=== PATIENT | male | born 1950 | race Caucasian/White ===

== ENCOUNTER 2017-01-23 07:26 | Emergency (ER) | payer MEDICARE ==
--- NOTE | 2017-01-23 07:32 | ER Document Report ---
ED General - General Stated Complaint: FALL/DIFFICULTY BREATHING Time Seen by Provider: 01/23/17 07:32 Mode of Arrival: Medic Information source: Patient, Emergency Med Personnel Cannot obtain history due to: Altered mental status Notes: 66 yr old male presents emergency traffic with concerns for respiratory failure , syncope and trauma. Pt states he walks around at 5am every morning, was found down face flat by bystander, pt sating 66% initially with agonal respirations. Pt very altered initially, noted ot have multiple facial, body contusions, skin tears, no specific area f tenderness. pt core temp 92.5 - HPI Onset: Just prior to arrival Onset/Duration: Sudden Quality of pain: Achy Severity: Mild Pain Level: 1 Associated symptoms: Shortness of breath, Weakness, Other Exacerbated by: Denies Relieved by: Denies Similar symptoms previously: No Recently seen / treated by doctor: No - Related Data Allergies/Adverse Reactions: No Known Allergies Allergy (Unverified 06/25/13 11:32) Past Medical History - Social History Smoking Status: Current Every Day Smoker Cigarette use (# per day): Yes Chew tobacco use (# tins/day): No Smoking Education Provided: No Family History: Malignancy Pulmonary Medical History: Reports: Hx COPD Neurological Medical History: Reports: Hx Seizures - Immunizations Hx Diphtheria, Pertussis, Tetanus Vaccination: No Review of Systems - Review of Systems Notes: PHYSICAL EXAMINATION: GENERAL: ill appearing male C collar in place. GCS 12 HEAD: multiple contusions EYES: Pupils equal round and reactive to light, extraocular movements intact, sclera anicteric, subconjunctival hemorrhage on the left edema of the orbital regions bilaterally ENT: Nares patent, oropharynx clear without exudates. Moist mucous membranes. No hemanotympanum . No blood in nares. No dental fracture NECK: C collar in place, trachea midline LUNGS: coarse breath sounds all throughout, bipap placed HEART: Regular rate and rhythm without murmurs. Pulses intact all throughout. ABDOMEN: distended abdomen, umbilical hernia Musculoskeletal: moving his extremities NEUROLOGICAL: GCS 12 PSYCH: Normal mood, normal affect. SKIN: multiple skin tears including left shoulder, left forearm, left elbow, extensive bruising U/S fast exam notes no obvious free fluid but this is a nondiagnostic evaluation -: Yes ROS unobtainable due to patient's medical condition Physical Exam - Vital signs Vitals: Pulse Ox 96 01/23/17 07:39 Course - Re-evaluation Re-evalutation: 01/23/17 07:42 C-collar was immediately placed on patient, respiratory was called for BiPAP, appears to be a medical reason for his fall given his excessive edema or respiratory distress 01/23/17 08:14 Core temp has improved with bare hugger 01/23/17 08:27 i bleeive patient was ill then had syncope and the trauma, ct imaging and labs pending 01/23/17 09:32 Troponin is noted to be elevated however I am still awaiting imaging before I can use any anticoagulation 01/23/17 10:19 [facility] paged for transfer 01/23/17 10:[address] Arcos ED defers on trauma transfer [facility] admit 01/23/17 10:44 Dr Aranda accepts to [facility] [place] - Vital Signs Vital signs: Temp Pulse Resp BP Pulse Ox 15 154/86 H 100 01/23/17 10:00 01/23/17 09:50 01/23/17 10:00 - Laboratory Result Diagrams: 01/23/17 08:00 01/23/17 08:00 Laboratory results interpreted by me: 01/23/17 01/23/17 01/23/17 08:00 08:00 08:00 WBC 16.8 H RDW 15.7 H Seg Neutrophils % 79.5 H Lymphocytes % 10.7 L Absolute Neutrophils 13.4 H VBG pH VBG pCO2 BUN 37 H Creatinine 1.64 H Est GFR ( Amer) 51 L Est GFR (Non-Af Amer) 42 L Glucose 113 H Direct Bilirubin 0.6 H Creatine Kinase 341 H CK-MB (CK-2) 8.91 H Urine Blood 01/23/17 01/23/17 08:00 08:00 WBC RDW Seg Neutrophils % Lymphocytes % Absolute Neutrophils VBG pH 7.24 L VBG pCO2 71.3 H* BUN Creatinine Est GFR ( Amer) Est GFR (Non-Af Amer) Glucose Direct Bilirubin Creatine Kinase CK-MB (CK-2) Urine Blood SMALL H Procedures - Immobilization Left 5th digit Time completed: 10:48 Pre-Proc Neuro Vasc Exam: Normal Immobilizer type: Ulnar Performed by: PCT Post-Proc Neuro Vasc Exam: Normal Alignment checked and good: Yes Critical Care Note - Critical Care Note Total time excluding time spent on procedures (mins): 85 Comments: 85 minutes of critical care time spent in direct contact evaluating and reevaluating the patient, treating symptoms, reviewing labs and studies and speaking with family and consultants excluding any procedures Discharge - Discharge Clinical Impression: Elevated troponin, NSTEMI (non-ST elevated myocardial infarction), Skin tear, Syncope and collapse Respiratory failure Qualifiers: Chronicity: acute Respiratory failure complication: hypercapnia Qualified Code( s): J96.02 - Acute respiratory failure with hypercapnia Closed fracture of 5th metacarpal Qualifiers: Encounter type: initial encounter Metacarpal location: base Fracture alignment : nondisplaced Laterality: left Qualified Code(s): S62.347A - Nondisplaced fracture of base of fifth metacarpal bone. left hand, initial encounter for closed fracture Condition: Fair Disposition: [facility] Referrals: CARMEN ESCOBAR MD [Primary Care Provider] - Follow up as needed
[2017-01-23] MEDS ORDERED: IPRATROPIUM/ALBUTEROL 0.5-2.5 MG/3 ML AMPUL NEB ONE ×2 (07:42→09:56)
[2017-01-23 08:21] LABS: ABSOLUTE BASOPHILS # (AUTO) 0.1 10^3/uL (0.0-0.2); ABSOLUTE EOSINOPHILS # (AUTO) 0.6 10^3/uL (0.0-0.6); ABSOLUTE LYMPHOCYTES (AUTO) 1.8 10^3/uL (0.5-4.7); ABSOLUTE NEUT (AUTO) 13.4 10^3/uL (1.7-8.2); BASOPHILS % (AUTO) 0.5 % (0-2); EOSINOPHILS % (AUTO) 3.4 % (0-6); LYMPHOCYTES % (AUTO) 10.7 % (13-45); MEAN CORPUSCULAR HEMOGLOBIN 27.3 pg (27.0-33.4); MEAN CORPUSCULAR HGB CONC 32.6 g/dL (32.0-36.0); MEAN CORPUSCULAR VOLUME 84 fl (80-97); MONOCYTES % (AUTO) 5.9 % (3-13); RED BLOOD COUNT 5.13 10^6/uL (4.35-5.55); RED CELL DISTRIBUTION WIDTH 15.7 % (11.5-14.0); SEGMENTED NEUTROPHILS % (AUTO) 79.5 % (42-78); WHITE BLOOD COUNT 16.8 10^3/uL (4.0-10.5)
[2017-01-23] MEDS ORDERED: CEFAZOLIN 1 GM/D5W RTU 1 GM/50 ML RTUPB IV ONE (08:23)
[2017-01-23] MEDS ORDERED: DIPH/PERTUSS(ACELL)/TETANUS VAC/PF 0.5 ML SYR (>=10YO) IM ONE (08:23)
[2017-01-23 08:27] LABS: VENOUS BLOOD BASE EXCESS 0.1 mmol/L; VENOUS BLOOD HCO3 29.6 mmol/L (20-32); VENOUS BLOOD PH 7.24 (7.30-7.42)
[2017-01-23 08:28] LABS: APPEARANCE,URINE CLEAR; BILIRUBIN,URINE NEGATIVE (NEGATIVE); GLUCOSE, URINE NEGATIVE (NEGATIVE); KETONES,URINE NEGATIVE (NEGATIVE); LEUKOCYTE ESTERASE,URINE NEGATIVE (NEGATIVE); NITRITE,URINE NEGATIVE (NEGATIVE); PROTEIN,URINE NEGATIVE (NEGATIVE); PROTHROMBIN TIME 14.7 SEC (11.4-15.4); UROBILINOGEN,URINE NEGATIVE mg/dL (<2.0)
[2017-01-23 08:30] LABS: VENOUS BLOOD PCO2 71.3 mmHg (35-63)
[2017-01-23 08:42] LABS: ALANINE AMINOTRANSFERASE 28 U/L (21-72); ALBUMIN 4.1 g/dL (3.5-5.0); ALKALINE PHOSPHATASE 80 U/L (38-126); ANION GAP 9 (5-19); ASPARTATE AMINO TRANSFERASE 45 U/L (17-59); BILIRUBIN,DIRECT 0.6 mg/dL (0.0-0.4); BLOOD UREA NITROGEN 37 mg/dL (7-20); CALCIUM 9.6 mg/dL (8.4-10.2); CARBON DIOXIDE 28 mmol/L (22-30); CHLORIDE 107 mmol/L (98-107); CREATINE KINASE 341 U/L (55-170); CREATININE RESULT 1.64 mg/dL (0.52-1.25); GLUCOSE 113 mg/dL (75-110); POTASSIUM 4.7 mmol/L (3.6-5.0); SODIUM 144.3 mmol/L (137-145); TOTAL PROTEIN 7.3 g/dL (6.3-8.2)
[2017-01-23 08:53] LABS: CREATINE KINASE MB 8.91 ng/mL (<4.55)
[2017-01-23 08:56] LABS: TROPONIN I 0.543 ng/mL
[2017-01-23] MEDS ORDERED: ASPIRIN 325 MG TABLET PO ONE (09:32)
--- NOTE | 2017-01-23 09:57 | RADIOLOGY REPORT (SQ) ---
EXAM DESCRIPTION: ELBOW BILATERAL 2 VIEWS MIN COMPLETED DATE/TIME: 01/23/2017 9:37 am REASON FOR STUDY: syncope fall, multiple injuries COMPARISON: None. NUMBER OF VIEWS: 8 views TECHNIQUE: AP, lateral, and both oblique radiographic images acquired of the right and left elbow. LIMITATIONS: Positioning. FINDINGS: MINERALIZATION: Normal. BONES: No acute fracture or dislocation. No worrisome bone lesions. JOINT: No effusion. SOFT TISSUES: IV overlying right antecubital fossa. OTHER: No other significant finding. IMPRESSION: No fracture identified. TECHNICAL DOCUMENTATION: JOB ID: [id number] [employer]- All Rights Reserved
--- NOTE | 2017-01-23 10:06 | RADIOLOGY REPORT (SQ) ---
EXAM DESCRIPTION: HAND BILATERAL 3 VIEWS COMPLETED DATE/TIME: 01/23/2017 9:37 am REASON FOR STUDY: syncope fall, multiple injuries COMPARISON: None. EXAM PARAMETERS: NUMBER OF VIEWS: Three views right hand. Three views left hand. TECHNIQUE: AP, lateral and oblique radiographic images acquired of bilateral hands. LIMITATIONS: None. FINDINGS: Fracture of the base of the left 5th metacarpal mild ulnar displacement. No other fractur e identified. IMPRESSION: Fracture of the base of the left 5th metacarpal. TECHNICAL DOCUMENTATION: JOB ID: [id number] [employer]- All Rights Reserved
--- NOTE | 2017-01-23 10:07 | RADIOLOGY REPORT (SQ) ---
EXAM DESCRIPTION: KNEE BILATERAL 1-2 VIEWS COMPLETED DATE/TIME: 01/23/2017 9:37 am REASON FOR STUDY: syncope fall, multiple injuries COMPARISON: None. NUMBER OF VIEWS: Four views. TECHNIQUE: AP and lateral radiographic images acquired of the right and left knee. LIMITATIONS: None. FINDINGS: MINERALIZATION: Normal. BONES: No acute fracture or dislocation. No worrisome bone lesions. JOINT: No effusion. SOFT TISSUES: Vascular calcifications. OTHER: No other significant finding. IMPRESSION: No fracture. TECHNICAL DOCUMENTATION: JOB ID: [id number] [employer]- All Rights Reserved
--- NOTE | 2017-01-23 10:08 | RADIOLOGY REPORT (SQ) ---
EXAM DESCRIPTION: CT HEAD WITHOUT COMPLETED DATE/TIME: 01/23/2017 9:49 am REASON FOR STUDY: syncope fall, multiple injuries COMPARISON: 06/25/2013 TECHNIQUE: Axial images acquired through the brain without intravenous contrast. Images reviewed wi th bone, brain and subdural windows. Images stored on PACS. All CT scanners at this facility use dose modulation, iterative reconstruction, and/or weight based d osing when appropriate to reduce radiation dose to as low as reasonably achievable (ALARA). [facility]: Dose Right [facility]: CareDose [facility]: Dose Right [facility]: Teradose 4D [facility]: [employer] RADIATION DOSE: Up-to-date CT equipment and radiation dose reduction techniques were employed. CTDIv ol: 64.6 mGy. DLP: 1163 mGy-cm. mGy. LIMITATIONS: Motion. FINDINGS: VENTRICLES: Prominent. CEREBRUM: No masses. No hemorrhage. No midline shift. Areas of low density in the white matter mos t likely due to chronic micro-vascular ischemic change. No evidence for acute infarction. CEREBELLUM: No masses. No hemorrhage. No alteration of density. No evidence for acute infarction. EXTRAAXIAL SPACES: Mild age-related involutional change. No fluid collections. No masses. ORBITS AND GLOBE: No intra- or extraconal masses. Normal contour of globe without masses. CALVARIUM: No fracture. PARANASAL SINUSES: No fluid or mucosal thickening. SOFT TISSUES: No mass or hematoma. OTHER: No other significant finding. IMPRESSION: No acute findings. EVIDENCE OF ACUTE STROKE: NO. TECHNICAL DOCUMENTATION: JOB ID: [id number] Quality ID # [id number]: Final reports with documentation of one or more dose reduction techniques (e.g., Au tomated exposure control, adjustment of the mA and/or kV according to patient size, use of iterative reconstruction technique) 2010 [employer]- All Rights Reserved
--- NOTE | 2017-01-23 10:13 | RADIOLOGY REPORT (SQ) ---
EXAM DESCRIPTION: CT CHEST WITH COMPLETED DATE/TIME: 01/23/2017 9:50 am REASON FOR STUDY: syncope fall, multiple injuries COMPARISON: 07/05/2013 TECHNIQUE: CT scan of the chest performed using helical scanning technique with dynamic intravenous contrast injection. Images reviewed with lung, soft tissue and bone windows. Reconstructed coronal and sagittal MPR images reviewed. All images stored on PACS. All CT scanners at this facility use dose modulation, iterative reconstruction, and/or weight based d osing when appropriate to reduce radiation dose to as low as reasonably achievable (ALARA). [facility]: Dose Right [facility]: CareDose [facility]: Dose Right [facility]: Teradose 4D [facility]: [employer] CONTRAST TYPE AND DOSE: See separate report of the same date. RENAL FUNCTION: See separate report of the same date. RADIATION DOSE: . LIMITATIONS: Motion. Positioning. FINDINGS: LUNGS AND PLEURA: Subsegmental airspace disease in the anterior lungs. This is probably d ependent atelectasis with patient found prone. No pneumothorax. No effusions. HILAR AND MEDIASTINAL STRUCTURES: No identified masses or abnormal nodes. HEART AND VASCULAR STRUCTURES: No aneurysm or dissection. No central pulmonary emboli. No pericardi al effusion. HARDWARE: None in the chest. UPPER ABDOMEN: See separate report of the CT of the abdomen. THYROID AND OTHER SOFT TISSUES: No masses. No adenopathy. BONES: No obvious fractures. Sensitivity is lower due to the amount of motion. OTHER: No other significant finding. IMPRESSION: Technical limitations. Anterior lung atelectasis. No pneumothorax. TECHNICAL DOCUMENTATION: JOB ID: [id number] Quality ID # [id number]: Final reports with documentation of one or more dose reduction techniques (e.g., Au tomated exposure control, adjustment of the mA and/or kV according to patient size, use of iterative reconstruction technique) 2010 [employer]- All Rights Reserved
[2017-01-23] MEDS ORDERED: DIAZEPAM INJ 10 MG/2 ML DISP.SYRIN IV ONE (10:16)
--- NOTE | 2017-01-23 10:16 | RADIOLOGY REPORT (SQ) ---
EXAM DESCRIPTION: CT ABD/PELVIS WITH IV ONLY COMPLETED DATE/TIME: 01/23/2017 9:50 am REASON FOR STUDY: syncope fall, multiple injuries COMPARISON: None. TECHNIQUE: CT scan of the abdomen and pelvis performed using helical scanning technique with dynamic intravenous contrast injection. No oral contrast. Images reviewed with lung, soft tissue, and bone windows. Reconstructed coronal and sagittal MPR images reviewed. Delayed images for evaluation of the urinary system also acquired. All images stored on PACS. All CT scanners at this facility use dose modulation, iterative reconstruction, and/or weight based d osing when appropriate to reduce radiation dose to as low as reasonably achievable (ALARA). [facility]: Dose Right [facility]: CareDose [facility]: Dose Right [facility]: Teradose 4D [facility]: [employer] CONTRAST TYPE AND DOSE: contrast/concentration: Isovue 370.00 mg/ml; Total Contrast Delivered: 99.0 ml; Total Saline Delivered: 69.0 ml RENAL FUNCTION: Not recorded by technologist. RADIATION DOSE: Up-to-date CT equipment and radiation dose reduction techniques were employed. CTDIv ol: 19.4 - 21.0 mGy. DLP: 2643 mGy-cm.. LIMITATIONS: Patient motion. FINDINGS: LOWER CHEST: See separate report of the CT of the chest. LIVER: Normal size. No masses. No dilated ducts. SPLEEN: Normal size. No focal lesions. PANCREAS: No masses. No significant calcifications. No adjacent inflammation or peripancreatic fluid collections. Pancreatic duct not dilated. GALLBLADDER: No identified stones by CT criteria. No inflammatory changes to suggest cholecystitis. ADRENAL GLANDS: No significant masses or asymmetry. RIGHT KIDNEY AND URETER: No solid masses. No significant calcifications. No hydronephrosis or hyd roureter. LEFT KIDNEY AND URETER: No solid masses. No significant calcifications. No hydronephrosis or hydr oureter. AORTA AND VESSELS: No aneurysm. RETROPERITONEUM: No retroperitoneal adenopathy, hemorrhage or masses. BOWEL AND PERITONEAL CAVITY: No masses or inflammatory changes. No free fluid or peritoneal masses. APPENDIX: Not visualized. PELVIS: Espitia catheter in urinary bladder. ABDOMINAL WALL: Small ventral hernia containing fat. BONES: No obvious fracture. Sensitivity is lower the amount of motion. OTHER: No other significant finding. IMPRESSION: No evidence of solid organ injury. TECHNICAL DOCUMENTATION: JOB ID: [id number] Quality ID # [id number]: Final reports with documentation of one or more dose reduction techniques (e.g., Au tomated exposure control, adjustment of the mA and/or kV according to patient size, use of iterative reconstruction technique) 2010 [employer]- All Rights Reserved
--- NOTE | 2017-01-23 10:21 | RADIOLOGY REPORT (SQ) ---
EXAM DESCRIPTION: CT CERVICAL SPINE WITHOUT COMPLETED DATE/TIME: 01/23/2017 9:50 am REASON FOR STUDY: syncope fall, multiple injuries COMPARISON: None. TECHNIQUE: Axial images acquired through the cervical spine without intravenous contrast. Images re viewed with lung, soft tissue and bone windows. Reconstructed coronal and sagittal MPR images review ed. Images stored on PACS. All CT scanners at this facility use dose modulation, iterative reconstruction, and/or weight based d osing when appropriate to reduce radiation dose to as low as reasonably achievable (ALARA). [facility]: Dose Right [facility]: CareDose [facility]: Dose Right [facility]: Teradose 4D [facility]: [employer] RADIATION DOSE: Up-to-date CT equipment and radiation dose reduction techniques were employed. CTDIv ol: 26.0 mGy. DLP: 573 mGy-cm. mGy. LIMITATIONS: Excessive motion. Positioning. FINDINGS: Patient is status post dorsal decompression at multiple levels. Reversal of lordotic curv e. Disc space narrowing and osteophyte formation multiple levels. No obvious acute fracture. IMPRESSION: No obvious fracture. If clinical suspicion of fracture persists, repeat imaging recomme nded when the patient is more stable. TECHNICAL DOCUMENTATION: JOB ID: [id number] Quality ID # [id number]: Final reports with documentation of one or more dose reduction techniques (e.g., Au tomated exposure control, adjustment of the mA and/or kV according to patient size, use of iterative reconstruction technique) 2010 [employer]- All Rights Reserved
[2017-01-23] MEDS ORDERED: HEPARIN SOD (PORCINE) 1,000 UNIT/ML 10 ML VIAL IV PRN (10:46)
[2017-01-23] MEDS ORDERED: HEPARIN SODIUM,PORCINE/D5W 25,000 UNIT/250 ML RTUINJ IV PRN (10:46)
[2017-01-23] MEDS ORDERED: HEPARIN SOD (PORCINE) 1,000 UNIT/ML 10 ML VIAL IV ONE (10:46)
[2017-01-23] MEDS ORDERED: HEPARIN SODIUM,PORCINE/D5W 25,000 UNIT/250 ML RTUINJ IV ONE (11:31)
--- NOTE | 2017-01-23 12:58 | EKG REPORT ---
SEVERITY:- OTHERWISE NORMAL ECG - SINUS RHYTHM VENTRICULAR PREMATURE COMPLEX : Confirmed by: Oneida Beckford 23-Jan-2017 12:57:34
--- NOTE | 2017-01-23 12:58 | EKG REPORT ---
SEVERITY:- ABNORMAL ECG - SINUS TACHYCARDIA PROLONGED QT INTERVAL : Confirmed by: Oneida Beckford 23-Jan-2017 12:58:02
[2017-01-23 14:59] LABS: CREATINE KINASE MB 14.1 ng/mL (<4.55)
[2017-01-23 15:02] LABS: TROPONIN I 2.36 ng/mL
--- NOTE | 2017-01-23 17:08 | ER Document Report ---
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 His vital signs remained stable with a blood pressure 129/63, pulse 77, pulse ox 100% on nasal cannula. He is not complaining of any pain at this time. Patient is stable for transport.
[2017-01-23 17:12] VITALS: BP 129/63
== END 2017-01-23 17:30 | disposition short-term general hospital (02) ==
LOC: ER 07:26
PROC: 2W3KX1Z Immobilization of Left Finger using Splint (ICD-10-PCS; principal; 2017-01-23)
DX: I21.4 Non-ST elevation (NSTEMI) myocardial infarction (principal); J96.02 Acute respiratory failure with hypercapnia; R53.1 Weakness; S51.012A Laceration without foreign body of left elbow, initial encounter; S51.812A Laceration without foreign body of left forearm, initial encounter; S41.012A Laceration without foreign body of left shoulder, initial encounter; S62.347A Nondisplaced fracture of base of fifth metacarpal bone, left hand, initial encounter for closed fracture; R55 Syncope and collapse; W18.30XA Fall on same level, unspecified, initial encounter; F17.210 Nicotine dependence, cigarettes, uncomplicated; J44.9 Chronic obstructive pulmonary disease, unspecified
CPT/HCPCS: 29125; 93005; 94640; 99291; 99292; 96375; 96365; 36415; 87040; 87086; 82553; 82550; 85025; 85610; 80053; 81001; 84484; 82803; 83605; 73070; 73130; 73560; 70450; 71260; 72125; 74177; 93010; 94660; J1644 ×2; A9270 ×2; J0690; J3360; J7620

== ENCOUNTER 2018-05-17 04:21 | Inpatient (IN) | payer MEDICARE, MEDICAID ==
[2018-05-17] MEDS ORDERED: ALBUTEROL SULFATE 0.083% NEB 2.5 MG/3 ML AMPUL NEB ONE (04:31)
[2018-05-17] MEDS ORDERED: IPRATROPIUM/ALBUTEROL 0.5-2.5 MG/3 ML AMPUL NEB ONE (04:31)
--- NOTE | 2018-05-17 04:35 | ER Document Report ---
ED Respiratory Problem - General Chief Complaint: Shortness Of Breath Stated Complaint: Difficulty breathing Time Seen by Provider: 05/17/18 04:27 Primary Care Provider: CARMEN ESCOBAR MD [COMMUNITY BASED STAFF] - Follow up as needed Mode of Arrival: Medic Information source: Patient, Emergency Med Personnel Notes: Patient is a 67-year-old male with history of COPD currently on home oxygen who presents with sudden onset shortness of breath. He reports that he has increased sputum production recently, denies fevers or chills, no chest pain. He also reports feeling more tired than normal. EMS found the patient with respiratory distress in the tripod position, was placed on CPAP and given IV Solu-Medrol as well as albuterol nebulizer treatments without improvement, they were given medical direction to place 1 inch of nitroglycerin paste on the patient's chest. Upon arrival the patient was switched over to BiPAP. TRAVEL OUTSIDE OF THE [place] IN LAST 30 DAYS: No - HPI Patient complains to provider of: Cough, Short of breath Onset: Yesterday Duration: Worse/persistent Initiating Event: URI Quality of pain: No pain Severity: Severe Pain Level: Denies Context: Hx asthma, Hx COPD Short of Breath: Severe Cough: Productive Sputum amount: Small Sputum color: Brown EMS treatments: Bronchodilators, CPAP, Solumedrol Associated symptoms: Ankle/leg swelling, Congestion, Cough Similar symptoms previously: No Recently seen / treated by doctor: No - Related Data Allergies/Adverse Reactions: No Known Allergies Allergy (Verified 05/17/18 06:05) Past Medical History - General Information source: Patient, Emergency Med Personnel - Social History Smoking Status: Former Smoker Chew tobacco use (# tins/day): No Frequency of alcohol use: None Drug Abuse: None Lives with: Alone, Family Family History: Reviewed & Not Pertinent, Malignancy Patient has suicidal ideation: No Patient has homicidal ideation: No - Past Medical History Cardiac Medical History: Reports: Hx Hypertension Pulmonary Medical History: Reports: Hx COPD EENT Medical History: Reports: None Neurological Medical History: Reports: Hx Seizures Endocrine Medical History: Reports: None Renal/ Medical History: Reports: None Malignancy Medical History: Reports None GI Medical History: Reports: None Musculoskeletal Medical History: Reports None Skin Medical History: Reports None Psychiatric Medical History: Reports: None Traumatic Medical History: Reports: None Infectious Medical History: Reports: None Surgical Hx: Negative Past Surgical History: Reports: None - Immunizations Immunizations up to date: Yes Hx Diphtheria, Pertussis, Tetanus Vaccination: No Review of Systems - Review of Systems Constitutional: See HPI, Fever, Malaise EENT: No symptoms reported Cardiovascular: No symptoms reported Respiratory: See HPI, Cough, Sputum, Wheezing Gastrointestinal: No symptoms reported Genitourinary: No symptoms reported Male Genitourinary: No symptoms reported Musculoskeletal: No symptoms reported Skin: No symptoms reported Hematologic/Lymphatic: No symptoms reported Neurological/Psychological: No symptoms reported -: Yes All other systems reviewed and negative Physical Exam - Vital signs Vitals: Pulse Ox 75 L 05/17/18 04:21 Interpretation: Normal - Notes Notes: Patient is weak and ill-appearing, has CPAP device already applied, speaks in shortened 2-3 word sentences - General General appearance: Appears well, Alert - HEENT Head: Normocephalic, Atraumatic Eyes: Normal Pupils: PERRL - Respiratory Respiratory status: No respiratory distress, Respiratory distress, Depressed respirations, Labored, Tachypnea Chest status: Nontender Breath sounds: Decreased air movement, Rhonchi, Wheezing Chest palpation: Normal - Cardiovascular Rhythm: Tachycardia Heart sounds: Normal auscultation Murmur: No Normal capillary refill: Yes - Abdominal Inspection: Normal Distension: No distension Bowel sounds: Normal Tenderness: Nontender Organomegaly: No organomegaly - Rectal Notes: Deferred - Genitourinary Notes: Deferred - Back Back: Normal, Nontender - Extremities General upper extremity: Normal inspection, Nontender, Normal color, Normal ROM, Normal temperature General lower extremity: Normal inspection, Nontender, Normal color, Normal ROM, Normal temperature, Normal weight bearing. No: Florencio's sign - Neurological Neuro grossly intact: Yes Cognition: Normal Orientation: AAOx4 Austin Coma Scale Eye Opening: Spontaneous Wolf Coma Scale Verbal: Oriented Wolf Coma Scale Motor: Obeys Commands Austin Coma Scale Total: 15 Speech: Normal Motor strength normal: LUE, RUE, LLE, RLE Sensory: Normal - Psychological Associated symptoms: Normal affect, Normal mood - Skin Skin Temperature: Warm Skin Moisture: Dry Skin Color: Normal Course - Re-evaluation Re-evalutation: 05/17/18 06:27 Patient appears consistent with COPD exacerbation given chest x-ray, has already shown improvement and has been able to come off BiPAP and now currently on nasal cannula. He was given broad-spectrum antibiotics and will be admitted to the hospitalist. - Vital Signs Vital signs: Temp Pulse Resp BP Pulse Ox 97.6 F 17 122/56 L 93 05/17/18 05:06 05/17/18 06:18 05/17/18 06:18 05/17/18 06:18 - Laboratory Result Diagrams: 05/17/18 04:30 05/17/18 04:30 Laboratory results interpreted by me: 05/17/18 05/17/18 05/17/18 04:30 04:30 05:23 WBC 13.7 H Hgb 13.3 L MCV 78 L MCH 24.8 L MCHC 31.8 L RDW 16.0 H Absolute Neutrophils 10.4 H Carbonic Acid ABG pCO2 ABG pO2 ABG HCO3 ABG Total CO2 ABG O2 Saturation Potassium 5.4 H Total Bilirubin 2.0 H Direct Bilirubin 1.1 H ALT < 6 L Urine Protein >=500 H Urine Urobilinogen 4.0 H 05/17/18 05:35 WBC Hgb MCV MCH MCHC RDW Absolute Neutrophils Carbonic Acid 1.36 H ABG pCO2 45.1 H ABG pO2 58.2 L ABG HCO3 27.0 H ABG Total CO2 28.4 H ABG O2 Saturation 90.0 L Potassium Total Bilirubin Direct Bilirubin ALT Urine Protein Urine Urobilinogen - Diagnostic Test Radiology reviewed: Image reviewed, Reports reviewed - EKG Interpretation by Me EKG shows normal: Sinus rhythm Rate: Tachycardia Rhythm: NSR [place]/QRS: No: Right axis deviation, Left axis deviation, RBBB, LBBB, IVCD, LAHB/LAFB, LPHB/LPFB, Bifasicular block Voltage: No: Increased voltage, Consistant with LVH, Decreased voltage, Throughout, Limb leads Heart block present: No: 1st Degree, Mobitz 1, Mobitz 2, CHB (3rd degree block) When compared to previous EKG there are: No significant change - Consults Dr. Swift Time consulted: 06:25 - will admit Consulted provider: will come to ER Discharge - Discharge Clinical Impression: Shortness of breath, COPD exacerbation Condition: Stable Disposition: ADMITTED INPATIENT Admitting Provider: Hospitalist Unit Admitted: Telemetry Referrals: CARMEN ESCOBAR MD [COMMUNITY BASED STAFF] - Follow up as needed
[2018-05-17] MEDS ORDERED: AZITHROMYCIN INJ 500 MG VIAL IV ONE (04:39)
--- NOTE | 2018-05-17 04:46 | RADIOLOGY REPORT (SQ) ---
EXAM DESCRIPTION: XR CHEST 1 VIEW COMPLETED DATE/TME: 05/17/2018 00:00 CLINICAL HISTORY: 67 years, Male, RESP DISTRESS COMPARISON: 07/13/2013 chest NUMBER OF VIEWS: 1 TECHNIQUE: Portable chest LIMITATIONS: None. FINDINGS: Heart size is normal. Atheromatous change thoracic aorta. Underlying COPD. Osteopenia. No pneumothorax. Mild interstitial edema versus pneumonitis. Patchy airspace opacity right lung base. IMPRESSION: COPD with mild interstitial edema versus pneumonitis. Patchy right basilar airspace opacity copyright 2010 [employer]- All Rights Reserved
[2018-05-17 04:49] LABS: ABSOLUTE BASOPHILS # (AUTO) 0.1 10^3/uL (0.0-0.2); ABSOLUTE EOSINOPHILS # (AUTO) 0.5 10^3/uL (0.0-0.6); ABSOLUTE LYMPHOCYTES (AUTO) 2.3 10^3/uL (0.5-4.7); ABSOLUTE MONOCYTES (AUTO) 0.4 10^3/uL (0.1-1.4); ABSOLUTE NEUT (AUTO) 10.4 10^3/uL (1.7-8.2); BASOPHILS % (AUTO) 0.6 % (0-2); EOSINOPHILS % (AUTO) 3.5 % (0-6); HEMATOCRIT 41.9 % (37.9-51.0); HEMOGLOBIN 13.3 g/dL (13.5-17.0); LYMPHOCYTES % (AUTO) 16.7 % (13-45); MEAN CORPUSCULAR HEMOGLOBIN 24.8 pg (27.0-33.4); MEAN CORPUSCULAR HGB CONC 31.8 g/dL (32.0-36.0); MEAN CORPUSCULAR VOLUME 78 fl (80-97); MONOCYTES % (AUTO) 3.2 % (3-13); PLATELET COUNT 360 10^3/uL (150-450); RED BLOOD COUNT 5.38 10^6/uL (4.35-5.55); TOTAL CELLS COUNTED % (AUTO) 100 %; WHITE BLOOD COUNT 13.7 10^3/uL (4.0-10.5)
[2018-05-17 05:05] LABS: ALANINE AMINOTRANSFERASE < 6 U/L (21-72); ALBUMIN 4.6 g/dL (3.5-5.0); ALKALINE PHOSPHATASE 80 U/L (38-126); ANION GAP 11 (5-19); ASPARTATE AMINO TRANSFERASE 55 U/L (17-59); BILIRUBIN,DIRECT 1.1 mg/dL (0.0-0.4); BLOOD UREA NITROGEN 16 mg/dL (7-20); CALCIUM 8.9 mg/dL (8.4-10.2); CARBON DIOXIDE 28 mmol/L (22-30); CHLORIDE 106 mmol/L (98-107); CREATINE KINASE 79 U/L (55-170); GLUCOSE 102 mg/dL (75-110); POTASSIUM 5.4 mmol/L (3.6-5.0); SODIUM 144.5 mmol/L (137-145); TOTAL PROTEIN 7.7 g/dL (6.3-8.2)
[2018-05-17] MEDS: CEFTRIAXONE 1 GM/D5W RTU 1 GM/50 ML RTUPB IV SCH ×2 (05:10→09:24)
[2018-05-17 05:17] LABS: TROPONIN I 0.027 ng/mL
[2018-05-17 05:41] LABS: APPEARANCE,URINE CLEAR; BILIRUBIN,URINE NEGATIVE (NEGATIVE); COLOR,URINE YELLOW; GLUCOSE, URINE NEGATIVE (NEGATIVE); KETONES,URINE NEGATIVE (NEGATIVE); LEUKOCYTE ESTERASE,URINE NEGATIVE (NEGATIVE); NITRITE,URINE NEGATIVE (NEGATIVE); PROTEIN,URINE >=500 mg/dL (NEGATIVE); URINE SPECIFIC GRAVITY 1.018
[2018-05-17 06:17] LABS: ARTERIAL BLOOD BASE EXCESS 1.7 mmol/L; ARTERIAL BLOOD H2CO3 1.36 mmol/L (1.05-1.35); ARTERIAL BLOOD PCO2 45.1 mmHg (35-45); ARTERIAL BLOOD PO2 58.2 mmHg (80-100); ARTERIAL BLOOD TOTAL CO2 28.4 mmol/L (23-27)
[2018-05-17 06:18] LABS: ARTERIAL BLOOD FIO2 NC4LPM
--- NOTE | 2018-05-17 07:24 | EKG REPORT ---
SEVERITY:- ABNORMAL ECG - SINUS TACHYCARDIA MULTIPLE VENTRICULAR PREMATURE COMPLEXES BORDERLINE RIGHT AXIS DEVIATION : Confirmed by: Lanie Cartagena MD 17-May-2018 07:24:20
[2018-05-17] MEDS ORDERED: ACETAMINOPHEN 325 MG TABLET PO PRN (08:22)
[2018-05-17] MEDS ORDERED: ONDANSETRON 4 MG TAB.RAPDIS PO PRN (08:22)
[2018-05-17] MEDS ORDERED: LEVALBUTEROL HCL NEB 1.25 MG/3 ML AMPUL NEB PRN (08:22)
[2018-05-17] MEDS ORDERED: FUROSEMIDE 20 MG TABLET PO ONE (08:33)
[2018-05-17] MEDS ORDERED: OXYCODONE HCL IR 5 MG TABLET PO PRN (08:34)
[2018-05-17] MEDS ORDERED: PROMETHAZINE HCL 25 MG TABLET PO PRN (08:40)
[2018-05-17] MEDS: GUAIFENESIN 600 MG TABLET.SA PO SCH ×2 (09:22→21:34)
[2018-05-17] MEDS: DOCUSATE SODIUM 100 MG CAPSULE PO SCH ×2 (09:22→17:35)
[2018-05-17] MEDS: OXYCODONE HCL IR 5 MG TABLET PO SCH ×3 (09:22→21:35)
[2018-05-17] MEDS: FAMOTIDINE 20 MG TABLET PO SCH ×2 (09:23→21:34)
[2018-05-17] MEDS: LISINOPRIL 10 MG TABLET PO SCH (09:23)
[2018-05-17] MEDS: METOPROLOL TARTRATE 50 MG TABLET PO SCH ×2 (09:23→21:36)
[2018-05-17] MEDS ORDERED: FLUTICASONE/SALMETEROL DISKUS 500-50 MCG/DOSE IH SCH (10:00)
[2018-05-17] MEDS ORDERED: ENOXAPARIN SODIUM INJ 40 MG/0.4 ML DISP.SYRIN SUBCUT SCH (10:00)
[2018-05-17] MEDS ORDERED: POLYETHYLENE GLYCOL 3350 POWDER 17 GM/1 PACKET PO PRN (11:06)
--- NOTE | 2018-05-17 11:22 | PDOC H&P ---
History of Present Illness Admission Date/PCP: 05/17/18 06:58 Dr. Bundy Patient complains of: Shortness of breath History of Present Illness: RIC HUNT is a 67 year old male with a long history of chronic obstructive pulmonary disease. He did stop smoking and drinking in 2012. He is on oxygen at home typically 2.5-3 L. Over the last week he has been noticing increased shortness of breath with exertion. Normally he can walk to the mailbox and back with his oxygen (approximately 200-250 feet) and not be short of breath. This has declined and now he can hardly walk short distances without getting increased shortness of breath accompanied by wheezing. He typically has a cough especially in the mornings. Lately he has been producing occasional yellow sputum but he reports that it is not an overwhelming amount. He denies any fever or chills. He did call his son to notify him that his shortness of breath had gotten worrisome and he was brought to the emergency department. He does have a slightly elevated white blood cell count as well as increased PCO2 and decreased oxygen saturation requiring more oxygen than his baseline. He was referred to the hospitalist for admission. Past Medical History Cardiac Medical History: Reports: Congestive Heart Failure, Coronary Artery Disease, Myocardial Infarction, Hypertension Pulmonary Medical History: Reports: Chronic Obstructive Pulmonary Disease (COPD), Respiratory Failure EENT Medical History: Reports: None, Cataracts Neurological Medical History: Reports: Seizures Endocrine Medical History: Reports: None Renal/ Medical History: Reports: None Malignancy Medical History: Reports: None GI Medical History: Reports: Other - Umbilical hernia Musculoskeltal Medical History: Reports: None Skin Medical History: Reports: Other - Very dry thin skin Psychiatric Medical History: Reports: None, Alcohol Dependency, Tobacco Dependency, Other - He has not had any alcohol or tobacco since 2012 Traumatic Medical History: Reports: None Hematology: Reports: Other - Easy bruising Infectious Medical History: Reports: None Past Surgical History Past Surgical History: Reports: None, Cardiac Catheterization, Orthopedic Surgery - Cervical spine Social History Information Source: Patient, Relative, POA - Power of Campaign Advisor - His son Dylan Hunt Lives with: Alone, Family Smoking Status: Former Smoker Frequency of Alcohol Use: None Last Alcohol Use: 04/25/12 Hx Recreational Drug Use: No Drugs: None Hx Prescription Drug Abuse: No - Chronic pain medication Family History Family History: Arthritis, Malignancy, Other - Lupus Parental Family History Reviewed: Yes Children Family History Reviewed: Yes Sibling(s) Family History Reviewed.: Yes Medication/Allergy Home Medications: Gabapentin [Neurontin 300 mg Capsule] 600 mg PO Q8 06/25/13 Fluticasone/Salmeterol [Advair 250-50 Diskus 14 Dose/Diskus] 1 inh IH Q12 #0 inhaler 07/19/13 Lisinopril [Prinivil 10 mg Tablet] 20 mg PO DAILY #0 tablet 07/19/13 Metoprolol Tartrate [Lopressor 50 mg Tablet] 50 mg PO Q12 #0 tablet 07/19/13 Alprazolam [Xanax 0.25 mg Tablet] 0.25 mg PO QHS 05/17/18 Aspirin [Ecotrin 81 mg EC Tablet] 81 mg PO DAILY 05/17/18 Flu Vacc [id number](65Yr Up)/Pf [Fluzone High-Dose Syr] 0.5 ml IM .RECEIVED 02/20/18 MDD 02/20/18 05/17/18 Oxycodone HCl 15 mg PO DAILY 05/17/18 Umeclidinium Bondurant [Incruse Ellipta] 62.5 mcg IH DAILY 05/17/18 Allergies/Adverse Reactions: No Known Allergies Allergy (Verified 05/17/18 06:05) Review of Systems Constitutional: PRESENT: fatigue. ABSENT: chills, fever(s), headache(s), night sweats Eyes: ABSENT: visual disturbances Ears: ABSENT: hearing changes Nose, Mouth, and Throat: ABSENT: mouth pain, sore throat Cardiovascular: PRESENT: dyspnea on exertion, edema. ABSENT: chest pain, palpitations Respiratory: PRESENT: cough, dyspnea, sputum - White/yellow. ABSENT: hemoptysis Gastrointestinal: PRESENT: constipation. ABSENT: abdominal pain, bloating Genitourinary: ABSENT: difficulty urinating, hematuria Musculoskeletal: PRESENT: other - Neck pain Integumentary: PRESENT: other - Extremely thin skin Neurological: ABSENT: abnormal speech, confusion, focal weakness, syncope, tingling, tremor(s), vertigo Psychiatric: ABSENT: anxiety, depression, hallucinations Endocrine: ABSENT: cold intolerance, heat intolerance Hematologic/Lymphatic: PRESENT: easy bruising Physical Exam Vital Signs: Temp Pulse Resp BP Pulse Ox 98.1 F 92 18 153/71 H 92 05/17/18 09:38 05/17/18 08:54 05/17/18 10:30 05/17/18 10:01 05/17/18 10:30 Intake & Output 05/16/18 05/17/18 05/18/18 06:59 06:59 06:59 Intake Total 50 50 Balance 50 50 Weight 94 kg General appearance: PRESENT: cooperative, mild distress, well-developed Head exam: PRESENT: atraumatic, normocephalic Eye exam: PRESENT: conjunctiva pale, EOMI. ABSENT: scleral icterus Ear exam: PRESENT: normal external ear exam Mouth exam: PRESENT: dry mucosa, tongue midline Neck exam: PRESENT: other - Surgical scar posterior neck. ABSENT: carotid bruit, full ROM, lymphadenopathy Respiratory exam: PRESENT: prolonged expiratory phas, rales - Faint rales at both bases, symmetrical. ABSENT: accessory muscle use, rhonchi, wheezes Cardiovascular exam: PRESENT: RRR, +S1, +S2, systolic murmur - 2/6 Pulses: PRESENT: normal radial pulses, normal femoral pulses GI/Abdominal exam: PRESENT: distended, hernia - Umbilical-soft nontender, normal bowel sounds, soft. ABSENT: tenderness Rectal exam: PRESENT: deferred Gentrourinary exam: ABSENT: indwelling catheter Extremities exam: PRESENT: pedal edema. ABSENT: calf tenderness, tenderness Musculoskeletal exam: PRESENT: normal inspection Neurological exam: PRESENT: alert, awake, oriented to person, oriented to place, oriented to time, oriented to situation, CN II-XII grossly intact Psychiatric exam: PRESENT: appropriate affect, normal mood. ABSENT: agitated, anxious Focused psych exam: ABSENT: restlessness Skin exam: PRESENT: dry - Very dry thin skin, other - Multiple ecchymotic lesions.. ABSENT: jaundice Results Laboratory Results: 05/17/18 04:30 05/17/18 04:30 05/17/18 05/17/18 05/17/18 04:30 04:30 04:57 WBC 13.7 H RBC 5.38 Hgb 13.3 L Hct 41.9 MCV 78 L MCH 24.8 L MCHC 31.8 L RDW 16.0 H Plt Count 360 Seg Neutrophils % 76.0 Lymphocytes % 16.7 Monocytes % 3.2 Eosinophils % 3.5 Basophils % 0.6 Absolute Neutrophils 10.4 H Absolute Lymphocytes 2.3 Absolute Monocytes 0.4 Absolute Eosinophils 0.5 Absolute Basophils 0.1 Carbonic Acid HCO3/H2CO3 Ratio ABG pH ABG pCO2 ABG pO2 ABG HCO3 ABG O2 Saturation ABG Base Excess FiO2 Sodium 144.5 Potassium 5.4 H Chloride 106 Carbon Dioxide 28 Anion Gap 11 BUN 16 Creatinine 1.15 Est GFR ( Amer) > 60 Est GFR (Non-Af Amer) > 60 Glucose 102 Lactic Acid 1.8 Calcium 8.9 Total Bilirubin 2.0 H AST 55 ALT < 6 L Alkaline Phosphatase 80 Total Protein 7.7 Albumin 4.6 Urine Color Urine Appearance Urine pH Ur Specific [place] Urine Protein Urine Glucose (UA) Urine Ketones Urine Blood Urine Nitrite Ur Leukocyte Esterase Urine WBC (Auto) Urine RBC (Auto) 05/17/18 05/17/18 05:23 05:35 WBC RBC Hgb Hct MCV MCH MCHC RDW Plt Count Seg Neutrophils % Lymphocytes % Monocytes % Eosinophils % Basophils % Absolute Neutrophils Absolute Lymphocytes Absolute Monocytes Absolute Eosinophils Absolute Basophils Carbonic Acid 1.36 H HCO3/H2CO3 Ratio 19:1 ABG pH 7.40 ABG pCO2 45.1 H ABG pO2 58.2 L ABG HCO3 27.0 H ABG O2 Saturation 90.0 L ABG Base Excess 1.7 FiO2 [id number] Sodium Potassium Chloride Carbon Dioxide Anion Gap BUN Creatinine Est GFR ( Amer) Est GFR (Non-Af Amer) Glucose Lactic Acid Calcium Total Bilirubin AST ALT Alkaline Phosphatase Total Protein Albumin Urine Color YELLOW Urine Appearance CLEAR Urine pH 6.0 Ur Specific [place] 1.018 Urine Protein >=500 H Urine Glucose (UA) NEGATIVE Urine Ketones NEGATIVE Urine Blood NEGATIVE Urine Nitrite NEGATIVE Ur Leukocyte Esterase NEGATIVE Urine WBC (Auto) 1 Urine RBC (Auto) 7 05/17/18 05/17/18 04:30 04:30 Creatine Kinase 79 Troponin I 0.027 NT-Pro-B Natriuret Pep 512 Impressions: Chest X-Ray 05/17/18 00:00 IMPRESSION: COPD with mild interstitial edema versus pneumonitis. Patchy right basilar airspace opacity copyright 2011 [employer]- All Rights Reserved Assessment & Plan - Diagnosis (1) Acute on chronic respiratory failure with hypoxia and hypercapnia Is this a current diagnosis for this admission?: Yes Plan: The patient required additional oxygen from his baseline. A blood gas showed increased PCO2. He is noted to be dyspneic. Chest x-ray suggested possible airspace disease at the right base but there was no prominent consolidation. There is also possible congestive failure but this was not overwhelming. He will be on scheduled duo nebs and budesonide. I have ordered methylprednisolone. For the possibility of infection he will be on Rocephin and azithromycin. He states that an episode last year resolved when the walk-in clinic gave him steroids and antibiotics. We will continue his Advair and discontinue the scheduled nebulizers as soon as possible. I have also placed him on guaifenesin. A sputum culture was not obtained prior to initiation of antibiotic therapy. (2) COPD exacerbation Is this a current diagnosis for this admission?: Yes Plan: Scheduled and as needed nebulizers as above. Steroids as above. Return to home inhaler regimen likely tomorrow. Hopeful for discharge tomorrow. At home he is on Advair discus 500/51 puff twice a day as well as Incruse inhaler daily. He does not have a nebulizer machine at home. This may be of benefit. He will see pulmonology as an outpatient. (3) Presence of stent in coronary artery in patient with coronary artery disease Is this a current diagnosis for this admission?: Yes Plan: We will continue his lisinopril, metoprolol, aspirin and he reported to the nurse that he is on a blood thinner. We are trying to gather more information. It is twice daily and very well may be apixaban. (4) Essential hypertension Is this a current diagnosis for this admission?: Yes Plan: Continue lisinopril and metoprolol. Monitor blood pressure. (5) Chronic neck and back pain Is this a current diagnosis for this admission?: Yes Plan: He takes immediate release oxycodone 15 mg 5 times a day. I believe he is a patient at the pain management clinic as well. (6) Therapeutic opioid-induced constipation (OIC) Is this a current diagnosis for this admission?: Yes Plan: He takes Metamucil at home when he feels constipated. I will place him on stool softeners with MiraLAX available as needed. I did discuss the use of specific medication such as Linzess for opiate-induced constipation. He can follow that up with his primary care physician. - Time Time Spent: Greater than 70 Minutes Medications reviewed and adjusted accordingly: Yes Anticipated discharge: Home Within: within 48 hours
[2018-05-17] MEDS: METHYLPREDNISOLONE INJ 40 MG/1 ML SDV IV SCH ×2 (14:04→21:31)
[2018-05-17] MEDS: GABAPENTIN 300 MG CAPSULE PO SCH ×2 (14:04→21:35)
[2018-05-17] MEDS: IPRATROPIUM/ALBUTEROL 0.5-2.5 MG/3 ML AMPUL NEB SCH ×2 (14:08→19:46)
[2018-05-17 17:13] LABS: ANION GAP 11 (5-19); BLOOD UREA NITROGEN 19 mg/dL (7-20); CARBON DIOXIDE 30 mmol/L (22-30); CHLORIDE 102 mmol/L (98-107); GLUCOSE 173 mg/dL (75-110); SODIUM 142.5 mmol/L (137-145)
[2018-05-17] MEDS: PANTOT AC/MIN OIL/PET HY-PHL OINT 50 GM TOP SCH (17:35)
[2018-05-17] MEDS ORDERED: ENOXAPARIN SODIUM INJ 80 MG/0.8 ML DISP.SYRIN SUBCUT ONE ×2 (17:49→18:15)
[2018-05-17] MEDS: CLOPIDOGREL BISULFATE 75 MG TABLET PO SCH (19:42)
[2018-05-17] MEDS ORDERED: NORMAL SALINE 1000 ML 1,000 ML IV PRN (19:43)
[2018-05-17] MEDS: BUDESONIDE NEB 0.25 MG/2 ML AMPUL NEB SCH (19:47)
--- NOTE | 2018-05-17 21:48 | PDOC CONSULTATION ---
Consultation-Blank Consultation: CARDIOLOGY CONSULTATION by Dr. Lanie Reeves on 05/17/2018. Note patient seen at 7 PM on 9. 60 minutes spent on this patient, with more than 50% of time spent in direct patient care. REASON FOR CONSULTATION patient with a history of COPD on home oxygen and, and a history of coronary artery disease, and history of non-ST elevation TX in January 2017, at which time he had a stent put in a unknown coronary artery admitted with shortness of breath [centimeters cyst symptoms that led to his stent placement in 2017] and Tom no major EKG changes, the patient's troponin I is elevated consistent with a non-ST elevation TX. HISTORY PRESENT ILLNESS: Patient with a known history of COPD on home oxygen, hypertension, and coronary artery disease, with a history of non-ST elevation TX in 2017 which led to the patient having a stent in the unknown coronary artery, states that usually was able to walk to the mailbox and back with his oxygen. The last 3 days he has been having more difficulty shortness of breath. He did have he states that he had some cough which is productive of greenish sputum. Which is now resolved. There is no fever chills or rigors. He states that that he called his son and told him up with her shortness of breath and he was brought to the emergency room. His PCO2 was just above the normal limits of 45 and was 45.1. And there was a slight decrease in oxygen saturation. The patient states that his shortness of breath was very severe without any wheezing. The patient denies any palpitations. Of note the patient states when he had the non-ST elevation TX in 2017 he had no chest pain but only shortness of breath. It is very difficult to differentiate between his shortness of breath being secondary to COPD or secondary to angina equal and. He denies any dizziness palpitations or syncope. He has no history of chronic kidney disease. He has a history of low back pain and his activity is very limited. He has no history of diabetes mellitus or thyroid disease. There is no history of TIA CVA. The patient states that he has a history of leg edema which is controlled with needed p.o. Lasix. On admission his potassium was 5.4, and he got a dose of Lasix after which his potassium came back to normal levels. PAST MEDICAL HISTORY: History of COPD on home oxygen. Patient is an ex-smoker he quit many years ago. He has a history of hypertension. In January 2017 the patient states that he got up in the morning around 5:00 to go have coffee with his neighbor. He was found by a bystander to be syncopal, and was having agonal breathing. He is brought to the emergency room at [place] and he ruled in for non-ST elevation TX with elevated troponin I which peaked at 2.3. He was transferred to [facility] where he had a stent put it a unknown coronary artery. Since then the patient has not had any syncopal or near syncopal episodes. He usually states that his shortness of breath due to his COPD is usually associated with wheezing. This time, leading to this admission, he had no wheezing. He has not had any seizures recently. He has a past history of alcohol and tobacco abuse. He has a history of seizures. He also has a history of low back pain due to osteoarthritis Past SURGICAL HISTORY: History of cardiac catheterization and stent placement. History of C-spine orthopedic surgery. ALLERGIES: No known allergies. FAMILY HISTORY: Is positive for malignancy, arthritis and lupus. SOCIAL HISTORY: He quit smoking many years ago. He has a past history of alcohol abuse. His last alcohol intake was 04/25/2012. DISPOSITION: He is a full code. His son is a surrogate healthcare decision maker. REVIEW OF SYSTEMS: CONSTITUTIONAL: Denies any fever chills or rigors. Complains of generalized fatigue and weakness. HEAD: Denies headaches or head injury. EYES: No history of amblyopia diplopia no history of amaurosis fugax. EARS: No history of hearing loss no history of tinnitus no history of vertigo. NOSE: No history of hayfever. No history of nosebleeds. MOUTH: No history of altered taste sensation. No history of ulcers in the mouth or bleeding from the gums. THROAT: No history of odynophagia or dysphagia. No history of recurrent sore throats. SKIN: History of easy bruisability present. No history of pruritus. No history of eczema. No history of yellowish discoloration of the skin. NECK: Does have neck pain from time to time due to arthritis. No history of swelling in the neck. No goiter. LUNGS: History of COPD on home oxygen. Recent symptoms of cough with yellowish sputum production. At present the patient has no cough and spitting up only clear stuff. No wheezing recently. No history of sleep apnea. No history of pulmonary embolism. No history of pleuritic chest pain, and no history of hemoptysis. Heart: History of coronary artery disease. History of non-ST elevation TX in the past and also this admission. History of stent in unknown vessel. History of hypertension. Past history of syncope when he had a non-ST elevation TX in 2017. No recurrence. History of intermittent leg edema controlled with as needed Lasix. At present no orthopnea or PND. Prior history of congestive heart failure. None recently. Denies any palpitations or cardiac arrhythmia. No history of rheumatic fever. GI: No history of fatty food intolerance. No history of ascites. No history of cirrhosis. No history of GI bleed. No history of altered bowel movements. No abdominal pain. RENAL: No history of chronic kidney disease. No history of hematuria pyuria or dysuria. No symptoms of enlarged prostate. No symptoms a UTI. ENDOCRINE: No history of diabetes mellitus or thyroid disease. No history of polydipsia polyuria. No history of heat or cold intolerance. MUSCULOSKELETAL: History of osteoarthritis and chronic back pain. No history of collagen vascular disease. 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 No history of headaches migraines or seizures. PSYCHIATRIC: No history of anxiety or depression. No history of suicidal ideation. No history of homicidal ideation. VASCULAR: No history of calf or buttock claudication, and no DVT. HEMATOLOGICAL: History of easy bruising present but the patient is on aspirin and Plavix. No history of clotting disorders or bleeding diathesis. PHYSICAL EXAMINATION: The patient appears to be chronically ill. At present in no acute distress. 05/17/18 19:05 Temperature 97.9 F Temperature Oral Source Pulse Rate [ 85 Left Finger] Respiratory 16 Rate Blood Pressure 160/70 H [Left Upper Arm ] Blood Pressure 100 Mean [Left Upper Arm] Blood Pressure Sitting Position [Left Upper Arm] Oxygen Delivery Nasal Cannula Method ( includes room air) Oxygen Flow 3 Rate HEAD: Is atraumatic normocephalic. EYES: Pupils are equal round regular reactive to light accommodation. Extraocular movements are normal. There is no clinical pallor. There is no scleral icterus. EARS: Tympanic membranes are intact. External auditory canals are clear. NOSE: There is no deviated nasal septum. There is no inflammation of the nasal mucous membrane. MOUTH: Mucous membranes of mouth are slightly dry tongue is dry. There is no ulcers. There is no bleeding from the gums. THROAT: There is no redness of the oropharynx. There is no exudates. SKIN: There is no skin rashes or skin lesions. There is superficial ecchymosis of the skin, but no petechiae. NECK: Is supple. There is no JVD. Carotids are equal there is no bruit. There is no lymphadenopathy. There is no goiter. There is no accessory muscle respiration in use. Trachea central. LUNGS: There is diminished air entry and prolonged expiration. At present there is no rhonchi rales of or wheezing. There is no chest wall tenderness. HEART: S1-S2 is heard there is no S3 gallop there is no S4 gallop there is systolic murmur left sternal border and the apex there is no rub. ABDOMEN: Soft. There is no hepatosplenomegaly. Bowel sounds are well heard there is no tender areas of masses. There is no rebound guarding or rigidity. EXTREMITIES: Femorals are diminished there is no femoral bruits. Leg pulses are diminished. There is no pedal edema at present. There is no DVT or cellulitis. There is no cyanosis or clubbing. Capillary refill is normal. ACCOUNTING TEACHER: The patient is conscious awake alert oriented x3 with no focal deficits. PSYCHIATRIC: The patient judgment insight are intact her affect is normal. PSYCHIATRIC: The patient judgment insight are intact his affect is normal. 05/17/18 05/17/18 05/17/18 04:30 04:30 04:30 WBC 13.7 H RBC 5.38 Hgb 13.3 L Hct 41.9 MCV 78 L MCH 24.8 L MCHC 31.8 L RDW 16.0 H Plt Count 360 Seg Neutrophils % 76.0 Lymphocytes % 16.7 Monocytes % 3.2 Eosinophils % 3.5 Basophils % 0.6 Absolute Neutrophils 10.4 H Absolute Lymphocytes 2.3 Absolute Monocytes 0.4 Absolute Eosinophils 0.5 Absolute Basophils 0.1 Carbonic Acid HCO3/H2CO3 Ratio ABG pH ABG pCO2 ABG pO2 ABG HCO3 ABG Total CO2 ABG O2 Saturation ABG Base Excess FiO2 Sodium 144.5 Potassium 5.4 H Chloride 106 Carbon Dioxide 28 Anion Gap 11 BUN 16 Creatinine 1.15 Est GFR (Non-Af Amer) > 60 Glucose 102 Lactic Acid Calcium 8.9 Total Bilirubin 2.0 H Direct Bilirubin 1.1 H Neonat Total Bilirubin Not Reportable Neonat Direct Bilirubin Not Reportable Neonat Indirect Bili Not Reportable AST 55 ALT < 6 L Alkaline Phosphatase 80 Creatine Kinase 79 Troponin I 0.027 NT-Pro-B Natriuret Pep 512 Total Protein 7.7 Albumin 4.6 05/17/18 05/17/18 05/17/18 04:57 05:35 11:27 WBC RBC Hgb Hct MCV MCH MCHC RDW Plt Count Seg Neutrophils % Lymphocytes % Monocytes % Eosinophils % Basophils % Absolute Neutrophils Absolute Lymphocytes Absolute Monocytes Absolute Eosinophils Absolute Basophils Carbonic Acid 1.36 H HCO3/H2CO3 Ratio 19:1 ABG pH 7.40 ABG pCO2 45.1 H ABG pO2 58.2 L ABG HCO3 27.0 H ABG Total CO2 28.4 H ABG O2 Saturation 90.0 L ABG Base Excess 1.7 FiO2 NC4LPM Sodium Potassium Chloride Carbon Dioxide Anion Gap BUN Creatinine Est GFR (Non-Af Amer) Glucose Lactic Acid 1.8 Calcium Total Bilirubin Direct Bilirubin Neonat Total Bilirubin Neonat Direct Bilirubin Neonat Indirect Bili AST ALT Alkaline Phosphatase Creatine Kinase Troponin I 0.727 NT-Pro-B Natriuret Pep Total Protein Albumin 05/17/18 05/17/18 16:35 16:35 WBC RBC Hgb Hct MCV MCH MCHC RDW Plt Count Seg Neutrophils % Lymphocytes % Monocytes % Eosinophils % Basophils % Absolute Neutrophils Absolute Lymphocytes Absolute Monocytes Absolute Eosinophils Absolute Basophils Carbonic Acid HCO3/H2CO3 Ratio ABG pH ABG pCO2 ABG pO2 ABG HCO3 ABG Total CO2 ABG O2 Saturation ABG Base Excess FiO2 Sodium 142.5 Potassium 4.0 D Chloride 102 Carbon Dioxide 30 Anion Gap 11 BUN 19 Creatinine 1.25 Est GFR (Non-Af Amer) 58 L Glucose 173 H Lactic Acid Calcium 9.0 Total Bilirubin Direct Bilirubin Neonat Total Bilirubin Neonat Direct Bilirubin Neonat Indirect Bili AST ALT Alkaline Phosphatase Creatine Kinase Troponin I 0.721 NT-Pro-B Natriuret Pep Total Protein Albumin 05/17/18 04:31 Albuterol Sulfate [Ventolin 0.083% Neb 2.5 mg/3 ml Ampul] 2.5 mg NEB .STK-MED ONE Ipratropium/Albuterol Sulfate [Duoneb 3 ml Ampul] 3 ml NEB .STK-MED ONE 05/17/18 04:39 Azithromycin [Zithromax Inj 500 mg Vial] 500 mg IV IVBAG (ED) ONE 05/17/18 05:00 Ceftriaxone 1 gm/D5w RTU [Rocephin RTU 1 gm/D5w 50 ml Premix] 1 gm in 50 ml IV DAILY 05/17/18 08:22 Acetaminophen [Tylenol 325 mg Tablet] 650 mg PO Q4HP PRN Levalbuterol HCl [Xopenex Neb 1.25 mg/3 ml Ampul] 1.25 mg NEB RTQ3HP PRN 05/17/18 08:33 Furosemide [Lasix 20 mg Tablet] 20 mg PO NOW ONE 05/17/18 08:34 Oxycodone HCl [Oxy-Ir 5 mg Tablet] 5 mg PO Q4HP PRN 05/17/18 08:40 Promethazine HCl [Phenergan 25 mg Tablet] 25 mg PO Q6HP PRN 05/17/18 09:00 Oxycodone HCl [Oxy-Ir 5 mg Tablet] 15 mg PO Q6A 05/17/18 10:00 Docusate Sodium [Colace 100 mg Capsule] 100 mg PO BID Famotidine [Pepcid 20 mg Tablet] 20 mg PO Q12 Fluticasone/Salmeterol [Advair 500-50 Diskus 14 Dose/Diskus] 1 inh IH Q12 Guaifenesin [Mucinex Sr 600 mg Tablet.sa] 600 mg PO Q12 Lisinopril [Prinivil 10 mg Tablet] 20 mg PO DAILY Metoprolol Tartrate [Lopressor 50 mg Tablet] 50 mg PO Q12 05/17/18 11:06 Polyethylene Glycol 3350 [Miralax Powder 17 gm/Packet] 17 gm PO DAILYP PRN 05/17/18 14:00 Gabapentin [Neurontin 300 mg Capsule] 600 mg PO Q8 Ipratropium/Albuterol Sulfate [Duoneb 3 ml Ampul] 3 ml NEB RTQ6 Methylprednisolone Sod Succ/Pf [Solu-Medrol Inj/Pf 40 mg/1 ml Sdv] 40 mg IV Q8 Normal Saline [Saline Flush 2.5 ml Monoject Prefil Syrin] 2.5 ml IV Q8 05/17/18 17:49 Enoxaparin Sodium [Lovenox Inj 80 mg/0.8 ml Disp.syrin] 80 mg SUBCUT .STK-MED ONE 05/17/18 18:00 Pantot AC/Min Oil/Pet Hy-Phl [Aquaphor W-Jazzy Heal Oint 50 gm] 1 applic TOP BID 05/17/18 18:15 Enoxaparin Sodium [Lovenox Inj 80 mg/0.8 ml Disp.syrin] 72 mg SUBCUT NOW ONE 05/17/18 19:00 Clopidogrel Bisulfate [Plavix 75 mg Tablet] 75 mg PO DAILY 05/17/18 19:43 Normal Saline 1000 ml [NaCl 0.9% 1000 ml IV Soln] 1,000 ml IV CONTINUOUS 05/17/18 20:00 Budesonide [Pulmicort Neb 0.25 mg/2 ml Ampul] 0.25 mg NEB RTQ12 05/17/18 22:00 Alprazolam [Xanax 0.25 mg Tablet] 0.25 mg PO QHS Aspirin [Ecotrin 81 mg EC Tablet] 81 mg PO QHS Azithromycin [Zithromax Inj 500 mg Vial] 500 mg Dextrose 5%-Water [D5w 250 ml IV Soln] 250 ml IV QHS CHEST X-ray: There is mild CHF. Possible right basal lung opacity. EKG: Initial EKG showed sinus rhythm with multiple PVCs. His subsequent EKGs are sinus rhythm with IVCD. Echo: Shows normal left ventricular chamber size wall motion and ejection fraction is around 60%. There is moderate pulmonary hypertension. There is mild aortic stenosis with a peak gradient of 27 mmHg, and there is mild aortic regurgitation. IMPRESSION/RECOMMENDATION: 1. Shortness of breath with elevated troponin I consistent most likely with non-ST elevation TX in a patient with history of coronary artery disease and history of stent placement. Discussed stress test versus cardiac catheterization. In view of the patient's lung condition Lexiscan Cardiolite may be a slight problem, although no definite contraindications. Cardiac catheterization will be more definite. I have discussed with the patient that if he decides to have a cath in [place] then Will be done here with an ambulance on standby and if revascularizable lesion is found to be transferred to [facility]. The patient understands and accepts this. He is aware of the benefits and risks of cardiac catheterization and also co nscious sedation. I have also spoken with the patient's son Mr. Dylan Hunt who is the patient's surrogate healthcare provider. Will hydrate the patient gently. Recheck the patient's chest x-ray in a.m. Will give him 0.75 mg/kg of Lovenox subcutaneously into 1 dose now. This is since the patient has received 40 mg of Lovenox earlier on. Will discuss with the cardiac cath/disease and insect control boss in the a.m. We will keep the patient is n.p.o for possible cardiac catheterization. We will recheck the patient's EKG and cardiac enzymes in the a.m. 2. Coronary artery disease history of non-ST elevation TX in January 2017. History of stent placement in unknown coronary artery in 2017. Will try to get records from [place]. 3. COPD on home oxygen: At present seems to be stable and at baseline, although cannot exclude an acute exacerbation of COPD although this is unlikely since the patient recovered quickly. 4. Moderate pulmonary hypertension: Most likely secondary to COPD. 5. Hypertension: Blood pressure slightly up will observe, and treat accordingly. 6. History of seizures: None recently 7. History of chronic back pain: Continue his pain medication. 8. Past history of alcohol and tobacco abuse: This is resolved. 9. Mild aortic stenosis and mild aortic regurgitation. Both hemodynamically insignificant. Occasions reviewed. Medications adjustment discussed with attending physician on the case including the management plan. Medical decision making is of high complexity. Note 60 minutes spent on this patient with more than 50% time spent on direct patient care. Scheduling cardiac cardiac catheterization was done after extensive discussions with the patient, and with the patient's son on the telephone.
[2018-05-17] MEDS ORDERED: AZITHROMYCIN 500 MG in DEXTROSE 5%-WATER 250 ML IV SCH (22:00)
[2018-05-17] MEDS ORDERED: ALPRAZOLAM 0.25 MG TABLET PO SCH (22:00)
[2018-05-17] MEDS ORDERED: ASPIRIN 81 MG TABLET, ENT COATED PO SCH (22:00)
[2018-05-18] MEDS: IPRATROPIUM/ALBUTEROL 0.5-2.5 MG/3 ML AMPUL NEB SCH ×3 (02:15→14:17)
[2018-05-18] MEDS: OXYCODONE HCL IR 5 MG TABLET PO SCH ×2 (03:09→13:30)
[2018-05-18 05:44] LABS: ARTERIAL BLOOD BASE EXCESS 4.7 mmol/L; ARTERIAL BLOOD H2CO3 1.26 mmol/L (1.05-1.35); ARTERIAL BLOOD HCO3 28.9 mmol/L (20-24); ARTERIAL BLOOD O2 SATURATION 96.6 % (94-98); ARTERIAL BLOOD PCO2 41.7 mmHg (35-45); ARTERIAL BLOOD PH 7.46 (7.35-7.45); ARTERIAL BLOOD PO2 82.1 mmHg (80-100); ARTERIAL BLOOD TOTAL CO2 30.2 mmol/L (23-27)
[2018-05-18 05:45] LABS: ARTERIAL BLOOD FIO2 3LPM
[2018-05-18] MEDS: METHYLPREDNISOLONE INJ 40 MG/1 ML SDV IV SCH ×2 (05:57→13:31)
[2018-05-18] MEDS: GABAPENTIN 300 MG CAPSULE PO SCH ×2 (05:58→13:20)
[2018-05-18 06:28] LABS: INTERNATIONAL RATION (INR) 1.32; PROTHROMBIN TIME 17.1 SEC (11.4-15.4)
[2018-05-18 06:29] LABS: PARTIAL THROMBOPLASTIN TIME 42.3 SEC (23.5-35.8)
[2018-05-18 06:43] LABS: ALANINE AMINOTRANSFERASE 30 U/L (21-72); ALBUMIN 3.5 g/dL (3.5-5.0); ALKALINE PHOSPHATASE 65 U/L (38-126); ANION GAP 8 (5-19); ASPARTATE AMINO TRANSFERASE 26 U/L (17-59); BILIRUBIN,DIRECT 0.4 mg/dL (0.0-0.4); BILIRUBIN,TOTAL 0.9 mg/dL (0.2-1.3); BLOOD UREA NITROGEN 24 mg/dL (7-20); CALCIUM 8.6 mg/dL (8.4-10.2); CARBON DIOXIDE 29 mmol/L (22-30); CHLORIDE 103 mmol/L (98-107); GLUCOSE 151 mg/dL (75-110); POTASSIUM 3.6 mmol/L (3.6-5.0); SODIUM 139.9 mmol/L (137-145); TOTAL PROTEIN 5.9 g/dL (6.3-8.2)
--- NOTE | 2018-05-18 08:00 | EKG REPORT ---
SEVERITY:- NORMAL ECG - SINUS RHYTHM : Confirmed by: Lanie Cartagena MD 18-May-2018 07:58:48
--- NOTE | 2018-05-18 08:00 | EKG REPORT ---
SEVERITY:- ABNORMAL ECG - SINUS RHYTHM NONSPECIFIC INTRAVENTRICULAR CONDUCTION DELAY : Confirmed by: Lanie Cartagena MD 18-May-2018 07:58:53
[2018-05-18 08:04] LABS: HEMATOCRIT 33.6 % (37.9-51.0); MEAN CORPUSCULAR HEMOGLOBIN 25.2 pg (27.0-33.4); MEAN CORPUSCULAR HGB CONC 33.3 g/dL (32.0-36.0); MEAN CORPUSCULAR VOLUME 76 fl (80-97); PLATELET COUNT 255 10^3/uL (150-450); RED BLOOD COUNT 4.44 10^6/uL (4.35-5.55); RED CELL DISTRIBUTION WIDTH 15.8 % (11.5-14.0); WHITE BLOOD COUNT 12.2 10^3/uL (4.0-10.5)
[2018-05-18 08:17] LABS: HEMOGLOBIN 11.2 g/dL (13.5-17.0)
[2018-05-18] MEDS ORDERED: VERAPAMIL HCL 5 MG, LIDOCAINE HCL/PF 4 ML, NORMAL SALINE 12 ML, NITROGLYCERIN/D5W 0.4 M... IV PRN ×5 (08:30)
--- NOTE | 2018-05-18 08:35 | RADIOLOGY REPORT (SQ) ---
EXAM DESCRIPTION: CHEST SINGLE VIEW COMPLETED DATE/TIME: 05/18/2018 8:11 am REASON FOR STUDY: COPD COMPARISON: CT chest 01/23/2017 Chest films 05/17/2018, 07/13/2013 EXAM PARAMETERS: NUMBER OF VIEWS: One view. TECHNIQUE: Single frontal radiographic view of the chest acquired. RADIATION DOSE: NA LIMITATIONS: None. FINDINGS: LUNGS AND PLEURA: Bandlike density at the right lung base, atelectasis versus pneumonia. This is new compared to 05/17/2018. Remainder of the lungs are clear. No pleural effusion. No pneumothorax. MEDIASTINUM AND HILAR STRUCTURES: No masses. Contour normal. HEART AND VASCULAR STRUCTURES: Heart normal in size. Normal vasculature. BONES: No acute findings. HARDWARE: None in the chest. OTHER: No other significant finding. IMPRESSION: New bandlike density at the right lung base likely atelectasis. TECHNICAL DOCUMENTATION: JOB ID: [id number] [employer]- All Rights Reserved Reading location - IP/workstation name: [email or web address]
[2018-05-18] MEDS: BUDESONIDE NEB 0.25 MG/2 ML AMPUL NEB SCH (09:01)
[2018-05-18] MEDS ORDERED: LIDOCAINE 1% INJ-PF (10 MG/ML) 30 ML SDV ONE (09:46)
[2018-05-18] MEDS ORDERED: HEPARIN SODIUM,PORCINE/NS/PF 2,000 UNIT/1,000 ML RTUINJ IV ONE (09:47)
[2018-05-18] MEDS ORDERED: MIDAZOLAM 2 MG/2 ML INJ ONE (09:50)
[2018-05-18] MEDS ORDERED: FENTANYL CITRATE INJ/PF 100 MCG/2 ML AMPUL ONE (09:50)
[2018-05-18] MEDS ORDERED: HEPARIN SOD (PORCINE) 1,000 UNIT/ML 10 ML VIAL ONE (09:50)
[2018-05-18] MEDS ORDERED: DIAZEPAM 5 MG TABLET ONE (10:07)
[2018-05-18] MEDS ORDERED: DIPHENHYDRAMINE HCL 25 MG CAPSULE ONE (10:07)
--- NOTE | 2018-05-18 12:40 | Operative Report ---
Operative Report-engineering lab technician Operative Report: Date of procedure: May 18, 2018 Procedures performed: 1. Left heart catheterization. 2. Selective coronary arteriography. 3. Left ventriculography. Wound/Ostomy Nurse: Lawrence Romero DO Contrast utilized: 130 mL of Optiray 320 Procedure in brief: After informed consent was obtained, the patient was brought to the catheterization lab in stable condition. Bilateral groins and the right wrist were prepped and draped in sterile fashion. The patient was given IV moderate conscious sedation by the cardiac catheterization lab nurse with Versed and fentanyl which was supervised by the screed operator. The following parameters were monitored: Oxygen saturation, heart rate, blood pressure, and response to care. Total physician intra-service time was 67 minutes. After local infiltration of the right wrist with 2% lidocaine, the right radial artery was punctured with a micropuncture needle and a 6 [employer] hydrophilic sheath was inserted into the right radial artery using modified cylinder technique and a micropuncture kit. The sheath was then flushed with a spasmolytic cocktail of nitroglycerin, verapamil, and lidocaine. The patient was given 5000 units of IV heparin. Next, left heart catheterization was performed using a 6 Austrian pigtail diagnostic catheter across the aortic valve in a retrograde fashion. Left ventricular pressure was measured and the catheter was positioned retrograde through the aortic valve and pressure measured in the aortic root. Next, selective coronary arteriography was performed initially using a 6 Austrian Cornland catheter to attempt to intubate the ostium the right coronary artery. This catheter continued to intubate the conus branch. We then focused on the left main and used the 6 Austrian Cornland catheter to intubate the left main coronary artery. Multiple injections were performed in orthogonal views and the catheter was removed from the body without difficulty. The catheter was then exchanged for a 6 Austrian JR4 catheter which continued to intubate the conus branch. A 6 Austrian Barbeau, 6 Austrian Ryan, and 6 Austrian 3 DRC catheters were not available. We utilized a 6 Austrian MPA 1 catheter to intubate the right coronary artery and multiple injections were performed in orthogonal views. The catheter was removed and the body without difficulty. We then placed the 6 Austrian pigtail catheter into the left ventricle. A left ventriculogram was performed by hand injection in the BAÑUELOS projection. The catheter was removed and the body without difficulty. Findings: Left heart hemodynamics LV 176/5, LVEDP 22 Ao 170/63, 106 Coronary arteriography Left main coronary artery: Left main coronary artery is angiographically normal giving rise to the LAD and left circumflex arteries. Left anterior descending artery: The left anterior descending artery courses over the anterior interventricular septum and terminates across the cardiac apex. The LAD is of large caliber proximally and tapers down to a moderate caliber vessel in the distal portion of the vessel. There is 1 major moderate sized first diagonal branch artery which has side branches of its own. The proximal and mid LAD is heavily calcified on fluoroscopy alone. There is a 40- 50% stenosis at the midportion of the LAD at the first diagonal branch artery bifurcation. This area is hazy with significant calcification. There are no high risk features of any active ulceration or plaque such as dye staining to indicate an active lesion. The remainder of the LAD has minimal irregularity. The first diagonal branch artery is of moderate caliber and has minimal luminal irregularity. Left circumflex artery: The left circumflex artery is a large artery. There is a 20% proximal stenosis. There is a very high takeoff first obtuse marginal branch artery which almost gives the appearance of a ramus intermedius branch. That vessel has a 20-30% ostial stenosis then otherwise minimal irregularity and it is of small to moderate caliber. The remainder of the left circumflex artery is of small to moderate caliber as it continues to the left AV groove. There is a large second obtuse marginal branch artery which has a stent in the proximal portion of the vessel which has minimal in-stent restenosis. The remainder of the obtuse marginal branch artery has minimal irregularity. Right coronary artery: The right coronary artery is the dominant vessel giving rise to the right PDA. The RCA is of moderate caliber. There is a 30-40% mid RCA stenosis with moderate amount of calcium. It bifurcates normally into a small right posterior lateral artery and a small right PDA. The right PDA has minimal irregularity. Left ventriculography: In the BAÑUELOS projection, the LV is of normal size. There is normal LV systolic function with no regional wall motion abnormality. There is +2 mitral regurgitation. The 6 Austrian radial artery sheath was removed and hemostasis achieved with the TR band. The patient tolerated the procedure well and there were no apparent complications at the end of the case. Impression: 1. Normal left main coronary artery. 2. Nonobstructive disease in the LAD with worst lesion being a 40-50% calcified mid LAD stenosis. 3. Nonobstructive disease of the left circumflex artery. 4. Patent second obtuse marginal branch artery stent. 5. 30-40% mid RCA calcified stenosis. 6. Preserved LV systolic function with no regional wall motion abnormality. 7. No evidence of aortic stenosis with mild mitral regurgitation. Plan: 1. No clear culprit for the patient's troponin elevation from the standpoint of the patient's angiogram. Case discussed with Dr. Cartagena. 2. Continue optimal medical therapy with outpatient follow-up. Further investigation of the LAD stenosis with either nuclear study versus FFR may be helpful if the patient continues to have symptoms. 3. Follow-up with Dr. Cartagena as an outpatient. I appreciate the opportunity to help participate in this patient's cardiovascular care. If you should have any questions for me regarding this patient's cardiac catheterization, please do not hesitate to contact me at the [facility].
[2018-05-18] MEDS: LISINOPRIL 10 MG TABLET PO SCH (13:19)
[2018-05-18] MEDS: GUAIFENESIN 600 MG TABLET.SA PO SCH (13:21)
[2018-05-18] MEDS: METOPROLOL TARTRATE 50 MG TABLET PO SCH (13:21)
[2018-05-18] MEDS: CLOPIDOGREL BISULFATE 75 MG TABLET PO SCH (13:30)
[2018-05-18] MEDS: DOCUSATE SODIUM 100 MG CAPSULE PO SCH (14:50)
[2018-05-18] MEDS: PANTOT AC/MIN OIL/PET HY-PHL OINT 50 GM TOP SCH (14:50)
[2018-05-18] MEDS: FAMOTIDINE 20 MG TABLET PO SCH (14:51)
[2018-05-18] MEDS: CEFTRIAXONE 1 GM/D5W RTU 1 GM/50 ML RTUPB IV SCH (15:53)
[2018-05-18 16:56] VITALS: BP 135/55
[2018-05-18] MEDS ORDERED: OXYCODONE HCL IR 5 MG TABLET PO SCH (18:00)
--- NOTE | 2018-05-18 21:15 | Progress Note ---
Provider Note Provider Note: CARDIOLOGY PROGRESS NOTE ON . SUBJECTIVE: The patient had his cardiac catheterization. It showed a patent site of stent in the obtuse marginal 1 branch. He had a 50% LAD lesion. No real culprit lesion was found for the patient's elevated troponin I. The patient at present is stable post cath. He denies any chest pain or discomfort. There is no shortness of breath. There is no PND orthopnea. There is no cough or wheezing. There is no TIA CVA symptoms. The patient denies any palpitations. There is no arrhythmias seen. The patient is anxious to go home. PHYSICAL EXAMINATION: The patient appears to be chronically ill. He is in no acute distress. He is well-groomed. Selected Entries 05/18/18 05/18/18 15:28 16:55 Temperature 98.5 F 98.5 F Pulse Rate 63 Respiratory 18 Rate Blood Pressure 140/57 H Blood Pressure 135/55 H [Left Upper Arm ] Blood Pressure 84 Mean BP Location Left Arm BP Position Sitting O2 Sat by Pulse 97 97 Oximetry Oxygen Flow 2.00 Rate Oxygen Delivery Nasal Cannula Method HEAD: Is atraumatic normocephalic. EYES: Pupils are equal round regular reactive to light accommodation. Extraocular movements are normal. There is no clinical pallor. There is no scleral icterus. EARS: Tympanic membranes are intact. External auditory canals are clear. NOSE: There is no deviated nasal septum. There is no inflammation of the nasal mucous membrane. MOUTH: Mucous membranes of mouth are slightly dry tongue is dry. There is no ulcers. There is no bleeding from the gums. THROAT: There is no redness of the oropharynx. There is no exudates. SKIN: There is no skin rashes or skin lesions. There is superficial ecchymosis of the skin, but no petechiae. NECK: Is supple. There is no JVD. Carotids are equal there is no bruit. There is no lymphadenopathy. There is no goiter. There is no accessory muscle respiration in use. Trachea central. LUNGS: There is diminished air entry and prolonged expiration. At present there is no rhonchi rales of or wheezing. There is no chest wall tenderness. HEART: S1-S2 is heard there is no S3 gallop there is no S4 gallop there is systolic murmur left sternal border and the apex there is no rub. ABDOMEN: Soft. There is no hepatosplenomegaly. Bowel sounds are well heard there is no tender areas of masses. There is no rebound guarding or rigidity. EXTREMITIES: Femorals are diminished there is no femoral bruits. Leg pulses are diminished. There is no pedal edema at present. There is no DVT or cellulitis. There is no cyanosis or clubbing. Capillary refill is normal. CLINICAL TECHNOLOGIST: The patient is conscious awake alert oriented x3 with no focal deficits. PSYCHIATRIC: The patient judgment insight are intact her affect is normal. PSYCHIATRIC: The patient judgment insight are intact his affect is normal. Cardiac cath site at the wrist is clean and dry, without any complications. There is no neurovascular compromise in the extremity that had the catheterization. 05/18/18 05/18/18 05/18/18 05:40 05:40 07:39 WBC 12.2 H RBC 4.44 Hgb 11.2 L D Hct 33.6 L MCV 76 L MCH 25.2 L MCHC 33.3 RDW 15.8 H Plt Count 255 PT 17.1 H INR 1.32 APTT 42.3 H Sodium 139.9 Potassium 3.6 Chloride 103 Carbon Dioxide 29 Anion Gap 8 BUN 24 H Creatinine 1.14 Est GFR (Non-Af Amer) > 60 Glucose 151 H Calcium 8.6 Total Bilirubin 0.9 Direct Bilirubin 0.4 Neonat Total Bilirubin Not Reportable Neonat Direct Bilirubin Not Reportable Neonat Indirect Bili Not Reportable AST 26 ALT 30 Alkaline Phosphatase 65 Total Protein 5.9 L Albumin 3.5 CHEST X-ray: Shows bandlike atelectasis right lower lobe. IMPRESSION/RECOMMENDATION: 1. Shortness of breath with elevated troponin I. The patient's cardiac catheterization does not show a culprit lesion. So this most likely is type II SD secondary to supply demand mismatch due to possibly due to the patient's hypoxia ischemia/hypercapnia and probably transient right heart failure. 2. Coronary artery disease history of non-ST elevation SD in January 2017. From today shows patent stent in the obtuse marginal 1 branch, and a 50% lesion in the LAD. Would recommend that once the patient is stable from his COPD will get an outpatient IV Lexiscan Cardiolite stress test to see if there is ischemia in the region of the LAD territory. In which case the patient may end up having a functional flow reserve measurement of the LAD lesion for its physiological significance. 3. COPD on home oxygen: At present seems to be stable and at baseline, although cannot exclude an acute exacerbation of COPD although this is unlikely since the patient recovered quickly. 4. Moderate pulmonary hypertension: Most likely secondary to COPD. 5. Hypertension: Blood pressure slightly up will observe, and treat accordingly. 6. History of seizures: None recently 7. History of chronic back pain: Continue his pain medication. 8. Past history of alcohol and tobacco abuse: This is resolved. 9. Mild aortic stenosis and mild aortic regurgitation. Both hemodynamically insignificant. Medications reviewed. Cardiac catheterization findings discussed with the patient. We will discharge the patient home, and the patient desires to follow- up with me. Contact telephone numbers given to the patient. Discussed with the attending physician on the case. Earlier discussed with the machine feeder who performed a cardiac catheterization. Note medical decision making is noted of moderate complexity. 40 minutes spent on this patient with more than 50% of time spent in direct patient care the patient is being discharged home, hence we will sign off.
--- NOTE | 2018-05-18 23:17 | XCELERA REPORT ---
[address] [address] Transthoracic Echocardiogram Report Name: RIC KUNZ Age: 67 yrs Gender: Male : 1950 Patient Status: Inpatient Patient Location: [address] [place] [address] Study Date: 05/17/2018 06:16 PM Height: 72 in Weight: 210 lb BSA: 2.2 m2 Procedure: A two-dimensional transthoracic echocardiogram with color flow and Doppler was performed. The study was technically difficult with many images being suboptimal in quality. Reason For Study: CAD / MURMUR /NSTEMI History: CAD / MURMUR /NSTEMI. Ordering Physician: LANIE TAFOYA Performed By: Tiffani Brooks Interpretation Summary The left ventricle is normal in size. There is normal left ventricular wall thickness. LV EF is 65% Left ventricular systolic function is normal. Doppler measurements suggest impaired left ventricular relaxation, which is associated with grade I/IV or mild diastolic dysfunction The left ventricular wall motion is normal. There is no thrombus. The right ventricle is mild to moderately dilated. The right ventricular systolic function is normal. The right atrium is normal. The left atrial size is normal. There is no evidence of mitral valve prolapse. There is no mitral valve stenosis. There is a trace amount of mitral regurgitation There is mild aortic stenosis There is a peak gradient of 22 mm of Hg. There is no LVOT obstruction. There is a trace to mild amount of aortic regurgitation There is no tricuspid stenosis. There is a mild amount of tricuspid regurgitation There is moderate pulmonary hypertension by echo RVSP is 51 mm of Hg , with RA mean of 10. There is no pulmonic valvular stenosis. There is no pulmonic valvular regurgitation. The aortic root is not well visualized. There is no pericardial effusion. MMode/2D Measurements & Calculations RVDd: 2.3 cm LVIDd: 5.7 cm FS: 38.7 % Ao root diam: 3.1 cm IVSd: 0.89 cm LVIDs: 3.5 cm EDV(Teich): 158.9 ml Ao root area: 7.7 cm2 LVPWd: 1.1 cm ESV(Teich): 50.3 ml LA dimension: 3.9 cm EF(Teich): 68.4 % Doppler Measurements & Calculations MV E max julita: MV P1/2t max julita: Ao V2 max: AI max julita: 105.6 cm/sec 119.4 cm/sec 234.5 cm/sec 388.2 cm/sec MV A max jultia: MV P1/2t: 82.5 msec Ao max PG: AI max P.4 cm/sec MVA(P1/2t): 2.7 cm2 22.0 mmHg 60.3 mmHg MV E/A: 0.88 MV dec slope: AI dec slope: 280.4 cm/sec2 424.1 cm/sec2 AI P1/2t: MV dec time: 0.17 sec 405.6 msec LV V1 max PG: PA V2 max: TR max julita: AV P1/2t-pr_phl: 6.8 mmHg 118.1 cm/sec 319.0 cm/sec 405.6 msec LV V1 max: PA max P.6 mmHg TR max P.3 cm/sec 40.7 mmHg MV P1/2t-pr_phl: 82.5 msec Left Ventricle The left ventricle is normal in size. There is normal left ventricular wall thickness. LV EF is 65%. Left ventricular systolic function is normal. Doppler measurements suggest impaired left ventricular relaxation, which is associated with grade I/IV or mild diastolic dysfunction. The left ventricular wall motion is normal. There is no thrombus. Right Ventricle The right ventricle is mild to moderately dilated. The right ventricular systolic function is normal. Atria The right atrium is normal. The left atrial size is normal. Mitral Valve There is no evidence of mitral valve prolapse. There is no mitral valve stenosis. There is a trace amount of mitral regurgitation. Aortic Valve There is no aortic valvular vegetation. There is mild aortic stenosis. There is a peak gradient of 22 mm of Hg. There is no LVOT obstruction. There is a trace to mild amount of aortic regurgitation. Tricuspid Valve There is no tricuspid stenosis. There is a mild amount of tricuspid regurgitation. There is moderate pulmonary hypertension by echo. RVSP is 51 mm of Hg , with RA mean of 10. Pulmonic Valve There is no pulmonic valvular stenosis. There is no pulmonic valvular regurgitation. Great Vessels The aortic root is not well visualized. Effusions There is no pericardial effusion. : LANIE TFAOYA > Lanie Tafoya
== END 2018-05-18 18:51 | disposition home or self-care (01) | DRG 280 ==
LOC: ER 04:21 → EH 06:58 → INTOOBSV 06:58 → OBSVTOIN 13:00 → 4S 19:10
PROVIDERS: ADMIT Emergency Medicine; ATTEND Emergency Medicine
PROC: 4A023N7 Measurement of Cardiac Sampling and Pressure, Left Heart, Percutaneous Approach (ICD-10-PCS; principal; 2018-05-18)
PROC: B211YZZ Fluoroscopy of Multiple Coronary Arteries using Other Contrast (ICD-10-PCS; 2018-05-18)
PROC: B215YZZ Fluoroscopy of Left Heart using Other Contrast (ICD-10-PCS; 2018-05-18)
DX: I21.A1 Myocardial infarction type 2 (principal); J96.22 Acute and chronic respiratory failure with hypercapnia; J96.21 Acute and chronic respiratory failure with hypoxia; J44.1 Chronic obstructive pulmonary disease with (acute) exacerbation; I50.9 Heart failure, unspecified; I11.0 Hypertensive heart disease with heart failure; E87.5 Hyperkalemia; I35.2 Nonrheumatic aortic (valve) stenosis with insufficiency; Z99.81 Dependence on supplemental oxygen; Z87.891 Personal history of nicotine dependence; Z79.82 Long term (current) use of aspirin; Z79.891 Long term (current) use of opiate analgesic; Z79.51 Long term (current) use of inhaled steroids; Z79.899 Other long term (current) drug therapy; Z95.5 Presence of coronary angioplasty implant and graft
CPT/HCPCS: 36415; 36600; 71045; 80048; 80053; 81001; 82550; 82803; 83605; 83880; 84484; 85025; 85027; 85610; 85730; 87040; 93005; 93010; 93306; 93458; 94660; G0378; J0456; J0696; J1644; J1650; J2250; J2920; J3010; J3490; J7030; J7060; J7620; J7626

== ENCOUNTER 2019-06-16 18:06 | Emergency (ER) | payer MEDICARE, MEDICAID ==
--- NOTE | 2019-06-16 18:24 | ER Document Report ---
ED Medical Screen (RME) - General Chief Complaint: Skin Sore(s) Stated Complaint: SKIN SORE/BLEEDING Time Seen by Provider: 06/16/19 18:20 TRAVEL OUTSIDE OF THE [place] IN LAST 30 DAYS: No - HPI Notes: 06/16/19 18:22 Patient is a 68-year-old male on Plavix and aspirin who presents complaining of bleeding on the outside of his right nare from a small area that will not stop for the past 2 hours. No fever, headache, dizziness, chest pain. I have treated and performed a rapid initial assessment of this patient. A comprehensive ED assessment and evaluation of the patient, analysis of test results and completion of medical decision making process will be conducted by additional ED providers. PHYSICAL EXAMINATION: GENERAL: Well-appearing, well-nourished and in no acute distress. A&Ox4. Answers questions appropriately. Skin: There is a steady venous flow of blood from the right nare (outside skin) when there is no pressure applied. - Related Data Allergies/Adverse Reactions: No Known Allergies Allergy (Verified 05/17/18 06:05) Past Medical History - Past Medical History Cardiac Medical History: Reports: Hx Congestive Heart Failure, Hx Coronary Artery Disease, Hx Heart Attack, Hx Hypertension Pulmonary Medical History: Reports: Hx COPD, Hx Respiratory Failure Neurological Medical History: Reports: Hx Seizures Renal/ Medical History: Denies: Hx Peritoneal Dialysis Past Surgical History: Reports: Hx Cardiac Catheterization, Hx Orthopedic Surgery - Cervical spine - Immunizations Immunizations up to date: Yes Hx Diphtheria, Pertussis, Tetanus Vaccination: No Physical Exam - Vital signs Vitals: Resp BP 16 126/66 H 06/16/19 18:20 06/16/19 18:20 Course - Vital Signs Vital signs: Temp Pulse Resp BP Pulse Ox 16 126/66 H 06/16/19 18:20 06/16/19 18:20
[2019-06-16] MEDS ORDERED: OXYCODONE HCL IR 5 MG TABLET PO ONE (19:30)
[2019-06-16] MEDS ORDERED: TRANEXAMIC ACID INJ/PF 1,000 MG/10 ML SDV TOP ONE (19:31)
--- NOTE | 2019-06-16 19:34 | ER Document Report ---
ED General - General Chief Complaint: Nose Problem Stated Complaint: SKIN SORE/BLEEDING Time Seen by Provider: 06/16/19 18:20 Notes: 68-year-old male presents emergency department stating that he was scratching the right side of his nose earlier today when he thinks he picked something off the outside of his nose. States it started bleeding has not stopped despite 3 hours of pressure. States he takes aspirin and Plavix. Denies any dizziness or lightheadedness. Denies any other injury to the area. TRAVEL OUTSIDE OF THE [place] IN LAST 30 DAYS: No - Related Data Allergies/Adverse Reactions: No Known Allergies Allergy (Verified 05/17/18 06:05) Home Medications: Plavix Past Medical History - General Information source: Patient - Social History Smoking Status: Former Smoker Chew tobacco use (# tins/day): No Frequency of alcohol use: None Drug Abuse: None Family History: Arthritis, Malignancy, Other - Lupus Patient has suicidal ideation: No Patient has homicidal ideation: No - Past Medical History Cardiac Medical History: Reports: Hx Congestive Heart Failure, Hx Coronary Artery Disease, Hx Heart Attack, Hx Hypertension Pulmonary Medical History: Reports: Hx COPD, Hx Respiratory Failure Neurological Medical History: Reports: Hx Seizures Renal/ Medical History: Denies: Hx Peritoneal Dialysis Past Surgical History: Reports: Hx Cardiac Catheterization, Hx Orthopedic Surgery - Cervical spine - Immunizations Immunizations up to date: Yes Hx Diphtheria, Pertussis, Tetanus Vaccination: No Review of Systems - Review of Systems Constitutional: No symptoms reported EENT: See HPI - Bleeding area to the right side of the nose. Cardiovascular: No symptoms reported Respiratory: No symptoms reported Skin: See HPI Neurological/Psychological: No symptoms reported Physical Exam - Vital signs Vitals: Resp BP 16 126/66 H 06/16/19 18:20 06/16/19 18:20 Interpretation: Normal - Notes Notes: GENERAL: Alert, interacts well. No acute distress. HEAD: Normocephalic, atraumatic EYES: Pupils equal, round and reactive to light, extraocular movements intact. ENT: Oral mucosa moist, tongue midline. On oxygen, approximately 2 mm area of skin that is bleeding on the right side of the nose, there is a superficial skin vein noted in this area, no arterial bleeding. This is external not internal. NECK: trachea midline. LUNGS: On oxygen, no respiratory distress. EXTREMITIES: Moves all 4 extremities spontaneously. No cyanosis. NEUROLOGICAL: Alert and oriented x3, normal speech. PSYCH: Normal mood, normal affect. SKIN: Warm, Dry, normal turgor. Course - Re-evaluation Re-evalutation: 06/16/19 21:34 After holding direct pressure on Telfa and TXA soaked gauze for an hour the bleeding has stopped. A small amount of Dermabond was applied over top to ensure that the hemostasis would continue. Patient is discharged home. Patient was counseled that if the lesion grows back in its place he needs to have this checked by primary care or dermatology because it is possible that he picked off an early skin cancer. - Vital Signs Vital signs: Temp Pulse Resp BP Pulse Ox 89 16 123/66 92 06/16/19 18:26 06/16/19 18:20 06/16/19 18:26 06/16/19 18:26 Discharge - Discharge Clinical Impression: Hemorrhage of skin lesion Condition: Stable Disposition: HOME, SELF-CARE Additional Instructions: The bleeding stopped with direct pressure and some transient stomach acid on the gauze. We then put some skin glue over top. Please do not pick at the skin glue. The skin glue will come off on its own in approximately 1 week. If the lesion grows back rather than just healing up with normal skin you will need to have it checked by dermatology or your primary care physician to ensure that you did not accidentally picked off a skin cancer that grows back. If the bleeding starts again please hold pressure directly for 30 minutes, if that does not stop the bleeding please return to the emergency department.
[2019-06-16 22:10] VITALS: BP 154/94
== END 2019-06-16 22:07 | disposition home or self-care (01) ==
LOC: ER 18:06
PROC: 09QK3ZZ Repair Nasal Mucosa and Soft Tissue, Percutaneous Approach (ICD-10-PCS; principal; 2019-06-16)
DX: R23.3 Spontaneous ecchymoses (principal); R04.0 Epistaxis; Z79.02 Long term (current) use of antithrombotics/antiplatelets; Z79.82 Long term (current) use of aspirin; Z87.891 Personal history of nicotine dependence; I50.9 Heart failure, unspecified; I25.10 Atherosclerotic heart disease of native coronary artery without angina pectoris; I25.2 Old myocardial infarction; I11.0 Hypertensive heart disease with heart failure; J44.9 Chronic obstructive pulmonary disease, unspecified
CPT/HCPCS: 12011; G0168; 99283; J3490

== ENCOUNTER 2019-09-20 09:18 | Emergency (ER) | payer MEDICARE, MEDICAID ==
[2019-09-20 10:20] LABS: ALBUMIN 3.6 g/dL (3.5-5.0); ALKALINE PHOSPHATASE 94 U/L (38-126); ANION GAP 8 (5-19); ASPARTATE AMINO TRANSFERASE 25 U/L (17-59); BILIRUBIN,DIRECT 0.2 mg/dL (0.0-0.4); BILIRUBIN,TOTAL 1.3 mg/dL (0.2-1.3); BLOOD UREA NITROGEN 17 mg/dL (7-20); CALCIUM 8.5 mg/dL (8.4-10.2); CARBON DIOXIDE 29 mmol/L (22-30); CHLORIDE 103 mmol/L (98-107); CREATINE KINASE 46 U/L (55-170); GLUCOSE 103 mg/dL (75-110); POTASSIUM 4.9 mmol/L (3.6-5.0); TOTAL PROTEIN 6.7 g/dL (6.3-8.2)
--- NOTE | 2019-09-20 10:23 | RADIOLOGY REPORT (SQ) ---
EXAM DESCRIPTION: CHEST SINGLE VIEW IMAGES COMPLETED DATE/TIME: 09/20/2019 10:14 am REASON FOR STUDY: sob COMPARISON: 05/18/2018. EXAM PARAMETERS: NUMBER OF VIEWS: One view. TECHNIQUE: Single frontal radiographic view of the chest acquired. RADIATION DOSE: NA LIMITATIONS: None. FINDINGS: LUNGS AND PLEURA: No opacities, masses or pneumothorax. No pleural effusion. MEDIASTINUM AND HILAR STRUCTURES: No masses. Contour normal. HEART AND VASCULAR STRUCTURES: Heart normal in size. Normal vasculature. BONES: No acute findings. HARDWARE: None in the chest. OTHER: No other significant finding. IMPRESSION: NO ACUTE RADIOGRAPHIC FINDING IN THE CHEST. TECHNICAL DOCUMENTATION: JOB ID: [id number] 2010 [employer]- All Rights Reserved Reading location - IP/workstation name: [email or web address]
[2019-09-20] MEDS ORDERED: ACETAMINOPHEN 325 MG TABLET PO ONE (10:27)
[2019-09-20 10:29] LABS: CREATINE KINASE MB 0.86 ng/mL (<4.55)
[2019-09-20 10:55] LABS: ARTERIAL BLOOD FIO2 35%; ARTERIAL BLOOD H2CO3 1.48 mmol/L (1.05-1.35); ARTERIAL BLOOD HCO3 27.9 mmol/L (20-24); ARTERIAL BLOOD O2 SATURATION 93.1 % (94-98); ARTERIAL BLOOD PCO2 49.2 mmHg (35-45); ARTERIAL BLOOD PH 7.37 (7.35-7.45); ARTERIAL BLOOD PO2 68.5 mmHg (80-100); ARTERIAL BLOOD TOTAL CO2 29.4 mmol/L (23-27)
[2019-09-20 11:27] LABS: HEMATOCRIT 35.3 % (37.9-51.0); HEMOGLOBIN 11.2 g/dL (13.5-17.0); MEAN CORPUSCULAR HEMOGLOBIN 23.4 pg (27.0-33.4); MEAN CORPUSCULAR HGB CONC 31.8 g/dL (32.0-36.0); MEAN CORPUSCULAR VOLUME 74 fl (80-97); PLATELET COUNT 314 10^3/uL (150-450); RED BLOOD COUNT 4.79 10^6/uL (4.35-5.55); WHITE BLOOD COUNT 12.5 10^3/uL (4.0-10.5)
--- NOTE | 2019-09-20 11:35 | EKG REPORT ---
SEVERITY:- OTHERWISE NORMAL ECG - SINUS TACHYCARDIA : Confirmed by: Mario Ridley MD 20-Sep-2019 11:35:07
[2019-09-20 12:09] LABS: ABSOLUTE LYMPHOCYTES# (MANUAL) 0.4 10^3/uL (0.5-4.7); BAND NEUTROPHILS % (MANUAL) 2 % (3-5); BASOPHILS % (MANUAL) 0 % (0-2); EOSINOPHILS % (MANUAL) 2 % (0-6); LYMPHOCYTES % (MANUAL) 3 % (13-45); MONOCYTES % (MANUAL) 0 % (3-13); SEGMENTED NEUTROPHILS % (MAN) 93 % (42-78); TOTAL CELLS COUNTED 100
[2019-09-20 12:11] LABS: TOXIC VACUOLATION PRESENT
[2019-09-20 12:12] LABS: ANISOCYTOSIS 1+; HYPOCHROMASIA SLIGHT; OVALOCYTES 1+; PLATELET COMMENT ADEQUATE; POIKILOCYTOSIS 2+; POLYCHROMASIA SLIGHT; SCHISTOCYTES SLIGHT; TEAR DROP CELLS SLIGHT
[2019-09-20] MEDS ORDERED: NORMAL SALINE 500 ML IV ONE (12:39)
--- NOTE | 2019-09-20 14:22 | RADIOLOGY REPORT (SQ) ---
EXAM DESCRIPTION: CT HEAD WITHOUT IMAGES COMPLETED DATE/TIME: 09/20/2019 2:06 pm REASON FOR STUDY: multiple falls COMPARISON: CT brain 01/23/2017, 06/25/2013 TECHNIQUE: Axial images acquired through the brain without intravenous contrast. Images reviewed wi th bone, brain and subdural windows. Additional sagittal and coronal reconstructions were generated. Images stored on PACS. All CT scanners at this facility use dose modulation, iterative reconstruction, and/or weight based d osing when appropriate to reduce radiation dose to as low as reasonably achievable (ALARA). [facility]: Dose Right [facility]: CareDose [facility]: Dose Right [facility]: Teradose 4D [facility]: Smart [employer] RADIATION DOSE: CT Rad equipment meets quality standard of care and radiation dose reduction techniq ues were employed. CTDIvol: 53.2 mGy. DLP: 1230 mGy-cm. mGy. LIMITATIONS: None. FINDINGS: VENTRICLES: Normal size and contour. CEREBRUM: No masses. No hemorrhage. No midline shift. No evidence for acute infarction. Normal gra y/white matter differentiation. No areas of low density in the white matter. CEREBELLUM: No masses. No hemorrhage. No alteration of density. No evidence for acute infarction. EXTRAAXIAL SPACES: No fluid collections. No masses. ORBITS AND GLOBE: No intra- or extraconal masses. Normal contour of globe without masses. CALVARIUM: No fracture. PARANASAL SINUSES: No fluid or mucosal thickening. SOFT TISSUES: No mass or hematoma. OTHER: Very heavily calcified distal intracranial vertebral arteries and parasellar carotid arteries. IMPRESSION: NORMAL BRAIN CT WITHOUT CONTRAST. EVIDENCE OF ACUTE STROKE: NO. COMMENT: Quality ID # [id number]: Final reports with documentation of one or more dose reduction techniques (e.g., Automated exposure control, adjustment of the mA and/or kV according to patient size, use of iterative reconstruction technique) TECHNICAL DOCUMENTATION: JOB ID: [id number] 2010 [employer]- All Rights Reserved Reading location - IP/workstation name: [email or web address]
--- NOTE | 2019-09-20 14:24 | RADIOLOGY REPORT (SQ) ---
EXAM DESCRIPTION: PELVIS AP IMAGES COMPLETED DATE/TIME: 09/20/2019 2:09 pm REASON FOR STUDY: pain in hips/falls COMPARISON: None. NUMBER OF VIEWS: One view TECHNIQUE: AP Pelvis LIMITATIONS: None. FINDINGS: MINERALIZATION: Normal. HIPS: No acute fracture or dislocation. No worrisome bone lesions. PELVIS AND SACRUM: No acute fracture or dislocation. No worrisome bone lesions. PUBIS AND ISCHIUM: No acute fracture. LOWER LUMBAR SPINE: No significant findings as visualized. SOFT TISSUES: No findings. OTHER: No other significant finding. IMPRESSION: NEGATIVE STUDY OF THE PELVIS. COMMENT: Pelvic fractures are often occult on plain radiographs. If strong clinical suspicion for f racture, recommend CT or MR. TECHNICAL DOCUMENTATION: JOB ID: [id number] 2010 [employer]- All Rights Reserved Reading location - IP/workstation name: [email or web address]
--- NOTE | 2019-09-20 14:25 | RADIOLOGY REPORT (SQ) ---
EXAM DESCRIPTION: CT CERVICAL SPINE WITHOUT IMAGES COMPLETED DATE/TIME: 09/20/2019 2:06 pm REASON FOR STUDY: multiple falls COMPARISON: CT cervical spine 01/23/2017 TECHNIQUE: Axial images acquired through the cervical spine without intravenous contrast. Images re viewed with lung, soft tissue and bone windows. Reconstructed coronal and sagittal MPR images review ed. Images stored on PACS. All CT scanners at this facility use dose modulation, iterative reconstruction, and/or weight based d osing when appropriate to reduce radiation dose to as low as reasonably achievable (ALARA). [facility]: Dose Right [facility]: CareDose [facility]: Dose Right [facility]: Teradose 4D [facility]: [employer] RADIATION DOSE: CT Rad equipment meets quality standard of care and radiation dose reduction techniq ues were employed. CTDIvol: 22.3 mGy. DLP: 386 mGy-cm. mGy. LIMITATIONS: None. FINDINGS: ALIGNMENT: Straightening of cervical lordosis MINERALIZATION: Normal. VERTEBRAL BODIES: No fractures or dislocation. DISCS: Multilevel disc space loss of height with bulky anterior osteophyte formation from C3-4 throug h C7-T1 FACETS, LATERAL MASSES, POSTERIOR ELEMENTS: Patient is post wide dorsal decompression of the cervical spine with bilateral laminectomy at C3, C4, C5, C6. Central spinal canal is decompressed. Moderate diffuse cervical foraminal narrowing HARDWARE: None in the spine. VISUALIZED RIBS: No fractures. LUNG APICES AND SOFT TISSUES: Densely calcified carotid bifurcations best shown on axial image 35 OTHER: No other significant finding. IMPRESSION: Post diffuse dorsal decompression of the cervical canal with multilevel laminectomies. No acute fracture or malalignment. TECHNICAL DOCUMENTATION: JOB ID: [id number] Quality ID # [id number]: Final reports with documentation of one or more dose reduction techniques (e.g., Au tomated exposure control, adjustment of the mA and/or kV according to patient size, use of iterative reconstruction technique) 2010 [employer]- All Rights Reserved Reading location - IP/workstation name: [email or web address]
--- NOTE | 2019-09-20 17:56 | ER Document Report ---
Entered by CHAVA ROJAS SCRIBE 09/20/19 1117 Acting as scribe for:WYATT TATE MD ED Respiratory Problem - General Chief Complaint: Shortness Of Breath Stated Complaint: SHORTNESS OF BREATH Time Seen by Provider: 09/20/19 11:16 Mode of Arrival: Ambulatory Information source: Patient Notes: This 69 year old male patient presents to the emergency department today due to frequent falls in the last week. Patient has fallen twice over the last week per history and has multiple skin tears. Patient states he has felt generally weak and dizzy prior to his falls. TRAVEL OUTSIDE OF THE [place] IN LAST 30 DAYS: No - Related Data Allergies/Adverse Reactions: No Known Allergies Allergy (Verified 05/17/18 06:05) Past Medical History - General Information source: Patient - Social History Smoking Status: Former Smoker Cigarette use (# per day): No Chew tobacco use (# tins/day): No Frequency of alcohol use: None Drug Abuse: None Lives with: Family Family History: Arthritis, Malignancy, Other - Lupus Patient has homicidal ideation: No - Past Medical History Cardiac Medical History: Reports: Hx Congestive Heart Failure, Hx Coronary Artery Disease, Hx Heart Attack, Hx Hypertension Pulmonary Medical History: Reports: Hx COPD, Hx Respiratory Failure Neurological Medical History: Reports: Hx Seizures Renal/ Medical History: Denies: Hx Peritoneal Dialysis Past Surgical History: Reports: Hx Cardiac Catheterization, Hx Orthopedic Surgery - Cervical spine - Immunizations Immunizations up to date: Yes Hx Diphtheria, Pertussis, Tetanus Vaccination: No Review of Systems - Review of Systems Constitutional: See HPI, Other - multiple falls. denies: Chills, Fever EENT: No symptoms reported Cardiovascular: No symptoms reported Respiratory: denies: Cough Gastrointestinal: denies: Diarrhea, Nausea, Vomiting Genitourinary: No symptoms reported Male Genitourinary: No symptoms reported Musculoskeletal: No symptoms reported Skin: See HPI, Other - skin tears Hematologic/Lymphatic: No symptoms reported Neurological/Psychological: denies: Lost consciousness -: Yes All other systems reviewed and negative Physical Exam - Vital signs Vitals: Resp Pulse Ox 20 97 09/20/19 09:17 09/20/19 09:17 - Notes Notes: Physical Exam: General: Alert, appears well. HEENT: Normocephalic. Atraumatic. PERRL. Extraocular movements intact. Oropharynx clear. Neck: Holds neck flexed with healed midline scar. Respiratory: Mild respiratory distress. Decreased air movement bilaterally. No wheezing. on Bi-pap. Cardiovascular: Regular rate and rhythm. Abdominal: Distended. Non-tender. Normal Bowel Sounds. Back: No gross abnormalities. Extremities: Moves all four extremities. Upper extremities: Normal inspection. Normal ROM. Lower extremities: Normal inspection. No edema. Normal ROM. Neurological: Normal cognition. AAOx4. Normal speech. Psychological: Normal affect. Normal Mood. Skin: There are two superficial skin tears over the left thumb and left proximal humerus. Course - Re-evaluation Re-evalutation: 09/20/19 17:42 Patient is currently on 3 L nasal O2 which is his baseline after decelerating from the BiPAP. Patient is maintaining sats in 94 to 97%. Denies any headache chest pain dizziness nausea vomiting at this time. 09/20/19 17:46 Patient ambulated the flores without showing signs of distress or ataxia or falling. Patient's saturation did drop down to low 90s. 09/20/19 17:46 Discussed at length with patient that he did not appear to be necessarily admitted to the hospital for his condition at this time. Did discuss with patient that we will consult discharge planning to see if there is some nursing or social assistance that he may be able to have once he gets home. - Vital Signs Vital signs: Temp Pulse Resp BP Pulse Ox 98.4 F 16 144/82 H 100 09/20/19 12:07 09/20/19 17:31 09/20/19 17:31 09/20/19 17:31 09/20/19 17:42 Vital signs stable pulse ox 100% on 3 L nasal O2 at this time. - Laboratory Result Diagrams: 09/20/19 11:04 09/20/19 09:35 Laboratory results interpreted by me: 09/20/19 09/20/19 09/20/19 09:35 09:35 09:35 WBC Hgb Hct MCV MCH MCHC RDW Seg Neuts % (Manual) Band Neutrophils % Lymphocytes % (Manual) Monocytes % (Manual) Abs Neuts (Manual) Abs Lymphs (Manual) Abs Monocytes (Manual) Carbonic Acid 1.48 H ABG pCO2 49.2 H ABG pO2 68.5 L ABG HCO3 27.9 H ABG Total CO2 29.4 H ABG O2 Saturation 93.1 L Creatine Kinase 46 L NT-Pro-B Natriuret Pep 177 H 09/20/19 11:04 WBC 12.5 H Hgb 11.2 L Hct 35.3 L MCV 74 L MCH 23.4 L MCHC 31.8 L RDW 16.0 H Seg Neuts % (Manual) 93 H Band Neutrophils % 2 L Lymphocytes % (Manual) 3 L Monocytes % (Manual) 0 L Abs Neuts (Manual) 11.9 H Abs Lymphs (Manual) 0.4 L Abs Monocytes (Manual) 0.0 L Carbonic Acid ABG pCO2 ABG pO2 ABG HCO3 ABG Total CO2 ABG O2 Saturation Creatine Kinase NT-Pro-B Natriuret Pep 09/20/19 17:43 Laboratories essentially within normal limits. - Diagnostic Test Radiology reviewed: Image reviewed, Reports reviewed Radiology results interpreted by me: 09/20/19 17:43 Chest x-ray shows no acute process no infiltrate. 09/20/19 17:43 CT scan of head shows no evidence for an acute stroke no other acute process. CT C-spine shows prior surgery and diffuse laminectomies surgery in the past. Degenerative disc disease noted. No acute fracture noted - EKG Interpretation by Me Additional EKG results interpreted by me: 09/20/19 17:45 Sinus tachycardia no acute process. Discharge - Discharge Clinical Impression: Chronic neck and back pain, COPD exacerbation, Essential hypertension, Skin tear of hand without complication Condition: Stable Disposition: HOME, SELF-CARE Additional Instructions: Chronic Obstructive Lung Disease You have chronic obstructive lung disease (COPD). The symptoms come from emphysema (damage to small airways, with trapping of air in large sacks in the lung) and chronic bronchitis (repeated infection and damage to larger airways). The cause is almost always cigarette smoking, although dust exposure, asthma, and infections contribute. You should avoid fumes, dust, and smoke (especially tobacco smoke). Your condition will flare from time to time. There is no cure, but the symptoms can be treated. Bronchodilators (asthma medicine) are often helpful. Antibiotics help when infection is present. When shortness of breath is severe, we may prescribe cortisone medication. If medicine doesn't help enough, we can arrange for you to have an oxygen tank at home. Notify your doctor at once if sputum becomes thick, foul, or bloody, if you develop a fever or chest pain, or if your shortness of breath worsens.Skin Tear Your wound is a skin tear. These wounds are difficult and sometimes impossible to suture because the skin is so fragile that it may not hold the sutures. The skin condition can be due to aging and sometimes medications. The best care for such skin tears is sometimes to not try to suture them. Rather, it is best to position the skin as closely as possible to its original location and apply a bandage that can remain in place for several days at a time and sometimes these bandages are left in place until the wound has healed. Most skin tears will heal in about two weeks. Because they are so difficult to care for, skin tears should be expected to leave some scarring. No new prescriptions are necessary at this time. Patient is to have daily dressing changes over his skin tear on the left hand. Patient is to continue his 3 L nasal O2. I personally performed the services described in the documentation, reviewed and edited the documentation which was dictated to the scribe in my presence, and it accurately records my words and actions.
[2019-09-20 18:53] VITALS: BP 144/84
== END 2019-09-20 18:54 | disposition home or self-care (01) ==
LOC: ER 09:18
DX: S61.012A Laceration without foreign body of left thumb without damage to nail, initial encounter (principal); S41.112A Laceration without foreign body of left upper arm, initial encounter; I11.0 Hypertensive heart disease with heart failure; I50.9 Heart failure, unspecified; J44.1 Chronic obstructive pulmonary disease with (acute) exacerbation; M54.2 Cervicalgia; M54.9 Dorsalgia, unspecified; G89.29 Other chronic pain; R06.02 Shortness of breath; R53.1 Weakness; R42 Dizziness and giddiness; W19.XXXA Unspecified fall, initial encounter; Z91.81 History of falling; Z87.891 Personal history of nicotine dependence; I25.10 Atherosclerotic heart disease of native coronary artery without angina pectoris
CPT/HCPCS: 93005; 99285; 96360; 96361; 36415; 82553; 82803; 82550; 85025; 80053; 84484; 83880; 71045; 72170; 70450; 72125; 93010; A9270; J7040

== ENCOUNTER 2019-10-05 13:25 | Inpatient (IN) | payer MEDICARE, MEDICAID ==
--- NOTE | 2019-10-05 15:18 | RADIOLOGY REPORT (SQ) ---
EXAM DESCRIPTION: CHEST SINGLE VIEW IMAGES COMPLETED DATE/TIME: 10/05/2019 2:52 pm REASON FOR STUDY: fall/weakness COMPARISON: 09/20/2019 EXAM PARAMETERS: NUMBER OF VIEWS: One view. TECHNIQUE: Single frontal radiographic view of the chest acquired. RADIATION DOSE: NA LIMITATIONS: None. FINDINGS: LUNGS AND PLEURA: There appears to be slightly increased opacification in the medial aspec t of each lung base compared to the earlier study. MEDIASTINUM AND HILAR STRUCTURES: No masses. Contour normal. HEART AND VASCULAR STRUCTURES: Heart normal in size. Normal vasculature. BONES: No acute findings. HARDWARE: None in the chest. OTHER: No other significant finding. IMPRESSION: Cannot exclude a limited pneumonia in either lower lobe. TECHNICAL DOCUMENTATION: JOB ID: [id number] 2010 [employer]- All Rights Reserved Reading location - IP/workstation name: [email or web address]
--- NOTE | 2019-10-05 15:35 | RADIOLOGY REPORT (SQ) ---
EXAM DESCRIPTION: CT HEAD WITHOUT IMAGES COMPLETED DATE/TIME: 10/05/2019 3:11 pm REASON FOR STUDY: fall COMPARISON: 09/20/2019 TECHNIQUE: Axial images acquired through the brain without intravenous contrast. Images reviewed wi th bone, brain and subdural windows. Additional sagittal and coronal reconstructions were generated. Images stored on PACS. All CT scanners at this facility use dose modulation, iterative reconstruction, and/or weight based d osing when appropriate to reduce radiation dose to as low as reasonably achievable (ALARA). [facility]: Dose Right [facility]: CareDose [facility]: Dose Right [facility]: Teradose 4D [facility]: [employer] RADIATION DOSE: CT Rad equipment meets quality standard of care and radiation dose reduction techniq ues were employed. CTDIvol: 21.6 mGy. DLP: 553 mGy-cm. mGy. LIMITATIONS: None. FINDINGS: VENTRICLES: Normal size and contour. CEREBRUM: Mild cortical atrophy. No masses. No hemorrhage. No midline shift. No evidence for acut e infarction. Normal [place]/white matter differentiation. No areas of low density in the white matter. CEREBELLUM: No masses. No hemorrhage. No alteration of density. No evidence for acute infarction. EXTRAAXIAL SPACES: No fluid collections. No masses. ORBITS AND GLOBE: No intra- or extraconal masses. Normal contour of globe without masses. CALVARIUM: No fracture. PARANASAL SINUSES: No fluid or mucosal thickening. SOFT TISSUES: Atherosclerosis in the intracranial carotid arteries and in the distal vertebral arteri es. OTHER: No other significant finding. IMPRESSION: Mild involutional changes. Intracranial atherosclerosis. No acute intracranial imaging findings. EVIDENCE OF ACUTE STROKE: NO. COMMENT: Quality ID # [id number]: Final reports with documentation of one or more dose reduction techniques (e.g., Automated exposure control, adjustment of the mA and/or kV according to patient size, use of iterative reconstruction technique) TECHNICAL DOCUMENTATION: JOB ID: [id number] 2010 [employer] All Rights Reserved Reading location - IP/workstation name: [email or web address]
[2019-10-05 15:38] LABS: ABSOLUTE BASOPHILS # (AUTO) 0.1 10^3/uL (0.0-0.2); ABSOLUTE EOSINOPHILS # (AUTO) 0.2 10^3/uL (0.0-0.6); ABSOLUTE LYMPHOCYTES (AUTO) 1.1 10^3/uL (0.5-4.7); ABSOLUTE MONOCYTES (AUTO) 0.6 10^3/uL (0.1-1.4); ABSOLUTE NEUT (AUTO) 11.6 10^3/uL (1.7-8.2); BASOPHILS % (AUTO) 0.8 % (0-2); EOSINOPHILS % (AUTO) 1.7 % (0-6); HEMATOCRIT 34.4 % (37.9-51.0); HEMOGLOBIN 10.8 g/dL (13.5-17.0); MEAN CORPUSCULAR HEMOGLOBIN 23.2 pg (27.0-33.4); MEAN CORPUSCULAR HGB CONC 31.3 g/dL (32.0-36.0); MEAN CORPUSCULAR VOLUME 74 fl (80-97); MONOCYTES % (AUTO) 4.6 % (3-13); PLATELET COUNT 478 10^3/uL (150-450); RED BLOOD COUNT 4.64 10^6/uL (4.35-5.55); RED CELL DISTRIBUTION WIDTH 16.5 % (11.5-14.0); SEGMENTED NEUTROPHILS % (AUTO) 84.9 % (42-78); TOTAL CELLS COUNTED % (AUTO) 100 %; WHITE BLOOD COUNT 13.7 10^3/uL (4.0-10.5)
[2019-10-05 15:44] LABS: INTERNATIONAL RATION (INR) 1.65; PROTHROMBIN TIME 19.7 SEC (11.4-15.4)
[2019-10-05 15:45] LABS: PARTIAL THROMBOPLASTIN TIME 35.4 SEC (23.5-35.8)
--- NOTE | 2019-10-05 15:47 | RADIOLOGY REPORT (SQ) ---
EXAM DESCRIPTION: CT CERVICAL SPINE WITHOUT IMAGES COMPLETED DATE/TIME: 10/05/2019 3:11 pm REASON FOR STUDY: fall/neck pain COMPARISON: 09/20/2019 TECHNIQUE: Axial images acquired through the cervical spine without intravenous contrast. Images re viewed with lung, soft tissue and bone windows. Reconstructed coronal and sagittal MPR images review ed. Images stored on PACS. All CT scanners at this facility use dose modulation, iterative reconstruction, and/or weight based d osing when appropriate to reduce radiation dose to as low as reasonably achievable (ALARA). [facility]: Dose Right [facility]: CareDose [facility]: Dose Right [facility]: Teradose 4D [facility]: Smart [employer] RADIATION DOSE: CT Rad equipment meets quality standard of care and radiation dose reduction techniq ues were employed. CTDIvol: 22.7 mGy. DLP: 514 mGy-cm. mGy. LIMITATIONS: None. FINDINGS: ALIGNMENT: Cervical kyphosis. MINERALIZATION: Normal. VERTEBRAL BODIES: No fractures or dislocation. DISCS: Disc spaces are narrowed from C3 to T1. Prominent marginal osteophytes are present multiple l evels. FACETS, LATERAL MASSES, POSTERIOR ELEMENTS: Multiple laminectomies are seen from C3-C6. HARDWARE: None in the spine. VISUALIZED RIBS: No fractures. LUNG APICES AND SOFT TISSUES: No significant or acute findings. OTHER: No other significant finding. IMPRESSION: Cervical kyphosis. Extensive degenerative disc disease and spondylosis. Multiple po ectomies. No acute finding. TECHNICAL DOCUMENTATION: JOB ID: [id number] Quality ID # [id number]: Final reports with documentation of one or more dose reduction techniques (e.g., Au tomated exposure control, adjustment of the mA and/or kV according to patient size, use of iterative reconstruction technique) 2010 [employer]- All Rights Reserved Reading location - IP/workstation name: [email or web address]
[2019-10-05 15:59] LABS: ALKALINE PHOSPHATASE 73 U/L (38-126); ANION GAP 12 (5-19); ASPARTATE AMINO TRANSFERASE 81 U/L (17-59); BILIRUBIN,DIRECT 1.2 mg/dL (0.0-0.4); BILIRUBIN,TOTAL 2.3 mg/dL (0.2-1.3); BLOOD UREA NITROGEN 33 mg/dL (7-20); CALCIUM 8.2 mg/dL (8.4-10.2); CARBON DIOXIDE 25 mmol/L (22-30); CHLORIDE 103 mmol/L (98-107); CREATINE KINASE 1191 U/L (55-170); GLUCOSE 91 mg/dL (75-110); POTASSIUM 3.9 mmol/L (3.6-5.0); TOTAL PROTEIN 5.8 g/dL (6.3-8.2)
[2019-10-05 16:15] LABS: TROPONIN I 0.1 ng/mL
[2019-10-05] MEDS ORDERED: NORMAL SALINE 1000 ML 1,000 ML IV ONE ×4 (17:16→23:45)
[2019-10-05] MEDS ORDERED: LIDOCAINE 1% INJ-PF (10 MG/ML) 30 ML SDV INJ ONE (17:59)
[2019-10-05 18:14] LABS: ANION GAP 12 (5-19); BLOOD UREA NITROGEN 32 mg/dL (7-20); CARBON DIOXIDE 25 mmol/L (22-30); CHLORIDE 103 mmol/L (98-107); CREATINE KINASE 1158 U/L (55-170); GLUCOSE 86 mg/dL (75-110); POTASSIUM 3.8 mmol/L (3.6-5.0)
[2019-10-05] MEDS ORDERED: CEFTRIAXONE INJ 1000 MG VIAL IV ONE (18:23)
[2019-10-05 18:27] LABS: TROPONIN I 0.1 ng/mL
[2019-10-05] MEDS ORDERED: OXYCODONE-ACETAMINOPHEN 5-325 MG TABLET PO PRN (18:46)
[2019-10-05] MEDS ORDERED: ACETAMINOPHEN 325 MG TABLET PO PRN (18:46)
[2019-10-05] MEDS ORDERED: ONDANSETRON HCL INJ/PF 4 MG/2 ML SDV IV PRN (18:46)
[2019-10-05] MEDS ORDERED: IPRATROPIUM/ALBUTEROL 0.5-2.5 MG/3 ML AMPUL NEB PRN (18:46)
[2019-10-05] MEDS ORDERED: MAG HYDROX/AL HYDROX/SIMETH SUSP 30 ML UDCUP PO PRN (18:46)
--- NOTE | 2019-10-05 18:59 | EKG REPORT ---
SEVERITY:- ABNORMAL ECG - SINUS TACHYCARDIA NONSPECIFIC T ABNORMALITIES, LATERAL LEADS BORDERLINE PROLONGED QT INTERVAL : Confirmed by: Lanie Cartagena MD 05-Oct-2019 18:59:06
[2019-10-05] MEDS ORDERED: OXYCODONE HCL IR 5 MG TABLET PO PRN (19:03)
--- NOTE | 2019-10-05 19:49 | PDOC H&P ---
History of Present Illness Patient complains of: Fall at home History of Present Illness: RIC KUNZ is a 69 year old male to this provider. He has a history of congestive heart failure, coronary artery disease, myocardial infarction and hypertension. He also has chronic obstructive pulmonary disease on home oxygen and respiratory failure. In addition he bruises easily and is anemic. There is a distant history of seizures. The patient reports that he has been feeling weak since May. He has not had alcohol or tobacco since 2012. His home oxygen is usually 2 to 3 L. With his weakness he finally fell. He sustained a large deep skin tear/laceration on the left elbow. In addition he cannot mobilize and was stuck on the floor for a day. He was able to eventually reach the phone and call for help. During that time he had minimal intake. It is also likely that he missed some doses of medication. Currently he looks exhausted. He is pale. He has the skin tear/laceration on the left arm the le ading edge of the skin is beginning to curl and retract. Laboratory studies revealed an acute kidney injury as well as liver dysfunction, and elevated creatinine kinase consistent with rhabdomyolysis and his anemia. He will be admitted to the hospital service. He needs fluids but we need to be mindful of his history of congestive heart failure. Although his liver dysfunction and serum creatinine qualify for sepsis I do not believe that this patient is septic. The emergency department physician is going to suture his left arm and he will be on ceftriaxone. Past Medical History Cardiac Medical History: Reports: Congestive Heart Failure, Coronary Artery Disease, Myocardial Infarction, Hypertension Pulmonary Medical History: Reports: Chronic Obstructive Pulmonary Disease (COPD), Respiratory Failure Neurological Medical History: Reports: Seizures GI Medical History: Reports: Gastroesophageal Reflux Disease Past Surgical History Past Surgical History: Reports: Cardiac Catheterization, Orthopedic Surgery - Cervical spine Social History Information Source: Patient, [facility] Records Lives with: Alone Smoking Status: Former Smoker Frequency of Alcohol Use: None - No alcohol since 2012 Hx Recreational Drug Use: No Drugs: None Hx Prescription Drug Abuse: No - Chronic pain medication - Advance Directive Resuscitation Status: Do Not Resuscitate Surrogate healthcare decision maker:: Francisco Richardson is the power of real estate attorney Family History Family History: Arthritis, Malignancy, Other - Lupus Parental Family History Reviewed: Yes Children Family History Reviewed: Yes Sibling(s) Family History Reviewed.: Yes Medication/Allergy Home Medications: Gabapentin [Neurontin 300 mg Capsule] 300 mg PO DAILY 06/25/13 Albuterol Sulfate [Proair HFA Inhalation Aerosol 8.5 gm MDI] 2 puff IH Q6HP PRN 05/17/18 Aspirin [Ecotrin 81 mg EC Tablet] 81 mg PO DAILY 05/17/18 Atorvastatin Calcium [Lipitor 80 mg Tablet] 80 mg PO QHS 05/17/18 Clopidogrel Bisulfate [Plavix 75 mg Tablet] 75 mg PO DAILY 05/17/18 Gabapentin [Neurontin 300 mg Capsule] 900 mg PO QHS 05/17/18 Lisinopril [Prinivil 10 mg Tablet] 10 mg PO DAILY 05/17/18 Metoprolol Succinate [Toprol Xl 25 mg Tab.sr] 25 mg PO DAILY 05/17/18 Oxycodone HCl 15 mg PO Q4HP PRN MDD 90 MG 05/17/18 Potassium Chloride [Klor-Con 10 Meq Tablet ER] 20 meq PO DAILY 05/17/18 Zolpidem Tartrate [Ambien 5 mg Tablet] 10 mg PO HSP PRN 05/17/18 Nitroglycerin 0.3 mg SL Q15MP PRN 30 Days #30 tab.subl 05/18/18 Albuterol Sulfate [Ventolin 0.083% Neb 2.5 mg/3 ml Ampul] 2.5 mg NEB Q6 10/05/19 Buprenorphine [Butrans] 5 mcg TD TEJADA@1000 10/05/19 Cyclobenzaprine HCl [Flexeril 10 mg Tablet] 10 mg PO TIDP PRN 10/05/19 Famotidine [Pepcid 20 mg Tablet] 20 mg PO DAILY 10/05/19 Fluticasone/Umeclidin/Vilanter [Trelegy 100-62.5-25 Mcg Ellipta 14 Dose/Dpi] 1 puff IH DAILY 10/05/19 Furosemide [Lasix 40 mg Tablet] 40 mg PO DAILY 10/05/19 Allergies/Adverse Reactions: No Known Allergies Allergy (Verified 05/17/18 06:05) Review of Systems All systems: reviewed and no additional remarkable complaints except as stated Constitutional: PRESENT: fatigue, weakness Nose, Mouth, and Throat: PRESENT: other - Dry mouth Respiratory: PRESENT: dyspnea Integumentary: PRESENT: other - Large skin tear/laceration left arm Neurological: PRESENT: frequent falls Hematologic/Lymphatic: PRESENT: easy bruising Physical Exam Vital Signs: Temp Pulse Resp BP Pulse Ox 97.9 F 120 H 14 139/74 H 98 10/05/19 14:00 10/05/19 13:26 10/05/19 16:39 10/05/19 16:39 10/05/19 16:39 Intake & Output 10/04/19 10/05/19 10/06/19 06:59 06:59 06:59 Weight 81.647 kg General appearance: PRESENT: cooperative, mild distress, well-developed, other - Well-developed but frail-appearing 69-year-old male resting in the bed. He looks older than his stated age. Head exam: PRESENT: atraumatic, normocephalic Eye exam: PRESENT: conjunctiva pale, EOMI, scleral icterus. ABSENT: nystagmus, periorbital swelling Ear exam: PRESENT: normal external ear exam. ABSENT: bleeding, drainage Mouth exam: PRESENT: dry mucosa, tongue midline Teeth exam: PRESENT: poor dentation Neck exam: ABSENT: carotid bruit, JVD, lymphadenopathy, tracheostomy Respiratory exam: PRESENT: clear to auscultation chirag, prolonged expiratory phas, symmetrical, unlabored. ABSENT: rales, rhonchi, tachypnea, wheezes Cardiovascular exam: PRESENT: RRR, +S1, +S2. ABSENT: diastolic murmur, irregular rhythm, systolic murmur GI/Abdominal exam: PRESENT: normal bowel sounds, soft. ABSENT: distended, guarding, tenderness Rectal exam: PRESENT: deferred Gentrourinary exam: ABSENT: indwelling catheter Extremities exam: ABSENT: pedal edema, tenderness Musculoskeletal exam: PRESENT: normal inspection. ABSENT: deformity, dislocation Neurological exam: PRESENT: alert, awake, oriented to person, oriented to place, oriented to time, oriented to situation, CN II-XII grossly intact. ABSENT: altered Psychiatric exam: PRESENT: flat affect. ABSENT: agitated, anxious, unusual affect Focused psych exam: ABSENT: delusional, paranoid, restlessness Skin exam: PRESENT: dry, skin tears - Large deep skin laceration/skin tear left elbow with subcutaneous fat exposed, other - Extremely dry and thin skin with multiple ecchymotic lesions and pigment deposition. ABSENT: intact Results Laboratory Results: 10/05/19 15:22 10/05/19 17:48 0610/05/19 10/05/19 15:22 15:22 15:22 WBC 13.7 H RBC 4.64 Hgb 10.8 L Hct 34.4 L MCV 74 L MCH 23.2 L MCHC 31.3 L RDW 16.5 H Plt Count 478 H Seg Neutrophils % 84.9 H Sodium 140.1 Potassium 3.9 Chloride 103 Carbon Dioxide 25 Anion Gap 12 BUN 33 H Creatinine 1.62 H Est GFR ( Amer) 51 L Glucose 91 Lactic Acid 2.4 H Calcium 8.2 L Total Bilirubin 2.3 H AST 81 H Alkaline Phosphatase 73 Total Protein 5.8 L Albumin 3.0 L 10/05/19 10/05/19 17:48 17:48 WBC RBC Hgb Hct MCV MCH MCHC RDW Plt Count Seg Neutrophils % Sodium 139.5 Potassium 3.8 Chloride 103 Carbon Dioxide 25 Anion Gap 12 BUN 32 H Creatinine 1.53 H Est GFR ( Amer) 55 L Glucose 86 Lactic Acid 1.8 Calcium 8.0 L Total Bilirubin AST Alkaline Phosphatase Total Protein Albumin 10/05/19 10/05/19 10/05/19 15:22 15:22 17:48 Creatine Kinase 1191 H 1158 H CK-MB (CK-2) 14.00 H Troponin I 0.100 NT-Pro-B Natriuret Pep 10/05/19 17:48 Creatine Kinase CK-MB (CK-2) Troponin I 0.100 NT-Pro-B Natriuret Pep 2990 H Impressions: Chest X-Ray 10/05/19 14:26 IMPRESSION: Cannot exclude a limited pneumonia in either lower lobe. Head CT 10/05/19 14:26 IMPRESSION: Mild involutional changes. Intracranial atherosclerosis. No acute intracranial imaging findings. EVIDENCE OF ACUTE STROKE: NO. Cervical Spine CT 10/05/19 14:28 IMPRESSION: Cervical kyphosis. Extensive degenerative disc disease and spondylosis. Multiple laminectomies. No acute finding. Assessment and Plan - Diagnosis (1) Rhabdomyolysis Qualifiers: Rhabdomyolysis type: traumatic Encounter type: initial encounter Qualified Code(s): T79.6XXA - Traumatic ischemia of muscle, initial encounter Is this a current diagnosis for this admission?: Yes Plan: 10/05/2019 The patient fell and lay on the floor for many hours. His creatinine kinase is elevated. This along with dehydration are likely the cause of the acute kidney failure with acute tubular necrosis. We will give IV fluids and monitor intake and output. We will check serial labs to monitor renal function. We need to be mindful of his history of heart failure when giving IV fluids. (2) Acute kidney injury (JUDY) with acute tubular necrosis (ATN) Is this a current diagnosis for this admission?: Yes Plan: 10/05/2019 Due to a combination of dehydration and rhabdomyolysis. The patient is also on lisinopril but I believe he missed the dose while he was stuck on the floor. Will give IV fluids being mindful of his history of heart failure. We will monitor renal function closely. I have held his daily Lasix for tonight. (3) Laceration of left forearm without complication Qualifiers: Encounter type: subsequent encounter Qualified Code(s): S51.812D - Laceration without foreign body of left forearm, subsequent encounter Is this a current diagnosis for this admission?: Yes Plan: 10/05/2019 The patient's arm will be sutured in the emergency department. He will be on ceftriaxone. The big risk is his extremely fragile skin. If the wound dehiscence then I will clean it and we will laying the skin flap down as best as possible. Approximate the edges as closely as possible. There will certainly be exposed space. We will use Xeroform through the weekend and possibly get collagen dressings with a wound care evaluation. I have added a multivitamin and zinc to help with his healing. (4) Chronic obstructive pulmonary disease Qualifiers: COPD type: unspecified COPD Qualified Code(s): J44.9 - Chronic obstructive pulmonary disease, unspecified Is this a current diagnosis for this admission?: Yes Plan: I will initially utilize nebulizer treatments. The patient will try to get back to his baseline 2 L to 3 L nasal cannula. I will likely follow him over to his own inhaler regimen or substitute Trelegy while he is in the hospital. No steroids at this point. (5) Dehydration Is this a current diagnosis for this admission?: Yes Plan: 10/05/2019 Judicious use of IV fluids and the patient's baseline medications. Serial laboratory studies are ordered. (6) Hyperbilirubinemia Is this a current diagnosis for this admission?: Yes Plan: 10/05/2019 Likely due to a constellation of events including the dehydration, rhabdo and kidney injury. His bilirubin in fact was elevated when I admitted the patient in April. While we are monitoring his renal function we will also monitor liver function with serial labs. His prothrombin time is slightly elevated. This could also be a reflection of his nutritional status. We will continue to monitor closely. (7) Leukocytosis Qualifiers: Leukocytosis type: unspecified Qualified Code(s): D72.829 - Elevated white blood cell count, unspecified Is this a current diagnosis for this admission?: Yes Plan: 10/05/2019 This is most likely a physiologic response to the recent events and current pathology. He will be on ceftriaxone for the laceration. There is no suggestion of pneumonia. Blood cultures and urine culture have been ordered. (8) Anemia Qualifiers: Anemia type: unspecified type Qualified Code(s): D64.9 - Anemia, unspecified Is this a current diagnosis for this admission?: Yes Plan: 10/05/2019 The patient reports that his primary care was working up his anemia. Evidently he was to be referred to hematology. I have ordered anemia work-up in the morning. He will be on a multivitamin and iron supplement as well as vitamin C. (9) Chronic diastolic heart failure Is this a current diagnosis for this admission?: Yes Plan: 10/05/2019 Echocardiogram in April 2018 revealed a normal ejection fraction with grade 1/4 diastolic failure. We will scrutinize his IV fluids so as not to create volume overload. (10) Chronic neck and back pain Is this a current diagnosis for this admission?: Yes Plan: 10/05/2019 Continue opiate therapy since this is chronic and I do not want to cause withdrawal. (11) Essential hypertension Is this a current diagnosis for this admission?: Yes Plan: 10/05/2019 The patient is on metoprolol, lisinopril and furosemide. I am holding the furosemide today due to the dehydration. I will likely utilize all 3 medications tomorrow but this will be based on his volume status, pulse and blood pressure. (12) Lactic acidemia Is this a current diagnosis for this admission?: Yes Plan: 10/05/2019 The patient received 2 L of fluid in the emergency department and his lactic acid normalized. (13) Pulmonary hypertension Is this a current diagnosis for this admission?: Yes Plan: 10/05/2019 Identified with the echocardiogram in April 2018. Continue current medication regimen. This may be contributing somewhat to his shortness of breath. - Time Time Spent with patient: 35 or more minutes Medications reviewed and adjusted accordingly: Yes Anticipated discharge: Home with Homehealth - Inpatient Certification Based on my medical assessment, after consideration of the patient's comorbidities, presenting symptoms, or acuity I expect that the services needed warrant INPATIENT care.: Yes I certify that my determination is in accordance with my understanding of Medicare's requirements for reasonable and necessary INPATIENT services [42 CFR 412.3e].: Yes Medical Necessity: Need For IV Fluids, Need For Continuous Telemetry Monitoring, Need for Pain Control, Need for IV Antibiotics Post Hospital Care: D/C Housekeeper Head Documentation
--- NOTE | 2019-10-05 20:59 | ER Document Report ---
Entered by KRZYSZTOF LAWRENCE SCRIBE 10/05/19 1424 Acting as scribe for:WYATT TATE MD ED General - General Chief Complaint: General Weakness Stated Complaint: WEAKNESS Information source: Patient Notes: This 69-year-old male presents to the emergency department via EMS after a fall that occurred last night. Patient explains that he fell around 11 PM last night and was unable to get to his phone. Patient said that he slept on the floor and in the morning was able to get to the phone to call EMS. Patient states that he felt to weak to get up on his own after the fall. Patient said that he has been feeling unwell. Patient reports bruising from the falls and chronic neck pain. Patient denies chest pain, cough, headache, loss of consciousness, nausea, vomiting, diarrhea, fever, chills, abdominal pain or COVID-19 exposure. Patient reports falling once last week and twice this week. Patient said that he has a cane and a walker but has not been using either lately. TRAVEL OUTSIDE OF THE [place] IN LAST 30 DAYS: No - Related Data Allergies/Adverse Reactions: No Known Allergies Allergy (Verified 05/17/18 06:05) Past Medical History - General Information source: Patient - Social History Smoking Status: Never Smoker Cigarette use (# per day): No Chew tobacco use (# tins/day): No Lives with: Alone Family History: Arthritis, Malignancy, Other - Lupus Patient has homicidal ideation: No - Past Medical History Cardiac Medical History: Reports: Hx Congestive Heart Failure, Hx Coronary Artery Disease, Hx Heart Attack, Hx Hypertension Pulmonary Medical History: Reports: Hx COPD, Hx Respiratory Failure Neurological Medical History: Reports: Hx Seizures Past Surgical History: Reports: Hx Cardiac Catheterization, Hx Orthopedic Surgery - Cervical spine - Immunizations Immunizations up to date: Yes Hx Diphtheria, Pertussis, Tetanus Vaccination: No Review of Systems - Review of Systems Constitutional: See HPI, Weakness. denies: Chills, Fever Cardiovascular: See HPI. denies: Chest pain Respiratory: See HPI. denies: Cough Gastrointestinal: See HPI. denies: Abdominal pain, Diarrhea, Nausea, Vomiting Musculoskeletal: See HPI, Neck pain Hematologic/Lymphatic: See HPI, Easy bruising Neurological/Psychological: See HPI, Weakness. denies: Lost consciousness, Headaches -: Yes All other systems reviewed and negative Physical Exam - Vital signs Vitals: Temp Pulse Resp BP Pulse Ox 97.7 F 120 H 20 106/81 98 10/05/19 13:26 10/05/19 13:26 10/05/19 13:26 10/05/19 13:26 10/05/19 13:26 - Notes Notes: Physical Exam: General: Alert, appears well. HEENT: Normocephalic. Atraumatic. PERRL. Extraocular movements intact. Oropharynx clear. Dry mucous membranes. Neck: Supple. Non-tender. No crepitus. Respiratory: No respiratory distress. Clear and equal breath sounds bilaterally. Cardiovascular: Regular rate and rhythm. Abdominal: Normal Inspection. Non-tender. No distension. Normal Bowel Sounds. Back: No gross abnormalities. Extremities: Moves all four extremities. Upper extremities: Bruising all over bilaterally. Bandage over the left upper arm. Normal ROM. Lower extremities: Normal inspection. No edema. Normal ROM. Neurological: Normal cognition. AAOx4. Normal speech. Psychological: Normal affect. Normal Mood. Skin: Warm. Dry. Bruising over UEs bilaterally. Course - Vital Signs Vital signs: Temp Pulse Resp BP Pulse Ox 97.9 F 120 H 14 139/74 H 98 10/05/19 14:00 10/05/19 13:26 10/05/19 16:39 10/05/19 16:39 10/05/19 16:39 - Laboratory Result Diagrams: 10/05/19 15:22 10/05/19 17:48 Laboratory results interpreted by me: 10/05/19 10/05/19 10/05/19 15:22 15:22 15:22 WBC 13.7 H Hgb 10.8 L Hct 34.4 L MCV 74 L MCH 23.2 L MCHC 31.3 L RDW 16.5 H Plt Count 478 H Lymph % (Auto) 8.0 L Absolute Neuts (auto) 11.6 H Seg Neutrophils % 84.9 H PT BUN 33 H Creatinine 1.62 H Est GFR ( Amer) 51 L Est GFR (MDRD) Non-Af 42 L Lactic Acid Calcium 8.2 L Total Bilirubin 2.3 H Direct Bilirubin 1.2 H AST 81 H Creatine Kinase 1191 H CK-MB (CK-2) 14.00 H NT-Pro-B Natriuret Pep Total Protein 5.8 L Albumin 3.0 L 10/05/19 10/05/19 10/05/19 15:22 15:22 17:48 WBC Hgb Hct MCV MCH MCHC RDW Plt Count Lymph % (Auto) Absolute Neuts (auto) Seg Neutrophils % PT 19.7 H BUN 32 H Creatinine 1.53 H Est GFR ( Amer) 55 L Est GFR (MDRD) Non-Af 45 L Lactic Acid 2.4 H Calcium 8.0 L Total Bilirubin Direct Bilirubin AST Creatine Kinase 1158 H CK-MB (CK-2) NT-Pro-B Natriuret Pep Total Protein Albumin 10/05/19 17:48 WBC Hgb Hct MCV MCH MCHC RDW Plt Count Lymph % (Auto) Absolute Neuts (auto) Seg Neutrophils % PT BUN Creatinine Est GFR ( Amer) Est GFR (MDRD) Non-Af Lactic Acid Calcium Total Bilirubin Direct Bilirubin AST Creatine Kinase CK-MB (CK-2) NT-Pro-B Natriuret Pep 2990 H Total Protein Albumin Procedures - Laceration/Wound Repair Left Elbow Wound length (cm): 15 Wound's Depth, Shape: Into muscle, Irregular, Flap, Stellate, Contused tissue Laceration pre-procedure: Chloraprep applied, Sterile drapes applied Anesthetic type: 1% Lidocaine Volume Anesthetic (mLs): 20 Wound explored: Clean, No foreign body removed Wound Debrided: Moderate Wound Repaired With: Sutures Suture Size/Type: Vicryl, 4:0 Layer Closure?: Yes Deep Layer Suture Size/Type: 4:0 Number Deep Layer Sutures: 8 Post-procedure wound care: Sterile dressing applied, Sling applied - nonadhesive dressing. Therese wrap. Post-procedure NV exam normal: Yes Complications: No Notes: 10/05/19 20:49 running 4-0 vicryl sutures on skin layer closure Significant loss of skin tissue due to traumatized skin and destruction Left Arm Wound length (cm): 10 Wound's Depth, Shape: Superficial, Flap Anesthetic type: Other - saline Wound explored: Clean, No foreign body removed Wound Debrided: Moderate - debrided superficial skin tear on left upper arm. Discharge - Discharge Clinical Impression: Accidental fall, Elevated CPK, Elevated lactic acid level, Elevated troponin, Skin tear of forearm without complication, Chronic pain, Laceration of elbow, left, complicated Condition: Fair Disposition: ADMITTED INPATIENT Admitting Provider: Scott (Hospitalist) Unit Admitted: Telemetry I personally performed the services described in the documentation, reviewed and edited the documentation which was dictated to the scribe in my presence, and it accurately records my words and actions.
--- NOTE | 2019-10-05 21:59 | RADIOLOGY REPORT (SQ) ---
XR ELBOW 3 VIEWS CLINICAL STATEMENT: trauma/skin laceration COMPARISON: None FINDINGS: Bony alignment is anatomic. There is no fracture or dislocation. The soft tissues are unremarkable. Fat pads are not displaced. IMPRESSION: No fracture.
[2019-10-05] MEDS ORDERED: METOPROLOL TARTRATE 50 MG TABLET PO SCH (22:00)
[2019-10-05] MEDS ORDERED: GABAPENTIN 300 MG CAPSULE PO SCH (22:00)
[2019-10-05 22:27] LABS: APPEARANCE,URINE CLEAR; BILIRUBIN,URINE NEGATIVE (NEGATIVE); COLOR,URINE AMBER; GLUCOSE, URINE NEGATIVE (NEGATIVE); KETONES,URINE TRACE mg/dL (NEGATIVE); PROTEIN,URINE NEGATIVE (NEGATIVE); URINE SPECIFIC GRAVITY 1.018
[2019-10-06] MEDS: HEPARIN SOD (PORCINE) 5,000 UNIT/ML 1 ML VIAL SUBCUT SCH ×4 (00:19→22:09)
[2019-10-06] MEDS: FAMOTIDINE 20 MG TABLET PO SCH ×3 (00:20→22:07)
[2019-10-06] MEDS: GABAPENTIN 300 MG CAPSULE PO SCH ×3 (00:20→22:06)
[2019-10-06] MEDS: TEMAZEPAM 7.5 MG CAPSULE PO SCH ×2 (00:20→22:07)
[2019-10-06] MEDS: ATORVASTATIN CALCIUM 80 MG TABLET PO SCH ×2 (00:20→22:06)
[2019-10-06] MEDS: IPRATROPIUM/ALBUTEROL 0.5-2.5 MG/3 ML AMPUL NEB SCH ×3 (01:00→16:05)
[2019-10-06] MEDS: BUDESONIDE NEB 0.5 MG/2 ML AMPUL NEB SCH ×3 (01:00→16:04)
[2019-10-06 06:05] LABS: ABSOLUTE EOSINOPHILS # (AUTO) 0.3 10^3/uL (0.0-0.6); ABSOLUTE LYMPHOCYTES (AUTO) 1.1 10^3/uL (0.5-4.7); ABSOLUTE MONOCYTES (AUTO) 0.3 10^3/uL (0.1-1.4); ABSOLUTE NEUT (AUTO) 4.4 10^3/uL (1.7-8.2); ABSOLUTE RETICS # 0.096 10^6/uL (0.028-0.122); BASOPHILS % (AUTO) 0.6 % (0-2); EOSINOPHILS % (AUTO) 5.7 % (0-6); HEMATOCRIT 27.9 % (37.9-51.0); LYMPHOCYTES % (AUTO) 17.4 % (13-45); MEAN CORPUSCULAR HEMOGLOBIN 23.5 pg (27.0-33.4); MEAN CORPUSCULAR HGB CONC 32.1 g/dL (32.0-36.0); MEAN CORPUSCULAR VOLUME 73 fl (80-97); MONOCYTES % (AUTO) 4.4 % (3-13); PLATELET COUNT 307 10^3/uL (150-450); RED BLOOD COUNT 3.82 10^6/uL (4.35-5.55); RED CELL DISTRIBUTION WIDTH 16.8 % (11.5-14.0); RETICULOCYTE COUNT (AUTO) 2.52 % (0.66-2.85); SEGMENTED NEUTROPHILS % (AUTO) 71.9 % (42-78); TOTAL CELLS COUNTED % (AUTO) 100 %; WHITE BLOOD COUNT 6.1 10^3/uL (4.0-10.5)
[2019-10-06 06:22] LABS: ALBUMIN 2.5 g/dL (3.5-5.0); ALKALINE PHOSPHATASE 59 U/L (38-126); ANION GAP 11 (5-19); ASPARTATE AMINO TRANSFERASE 71 U/L (17-59); BILIRUBIN,TOTAL 1.8 mg/dL (0.2-1.3); BLOOD UREA NITROGEN 26 mg/dL (7-20); CALCIUM 7.7 mg/dL (8.4-10.2); CARBON DIOXIDE 23 mmol/L (22-30); CHLORIDE 108 mmol/L (98-107); CREATINE KINASE 659 U/L (55-170); GLUCOSE 70 mg/dL (75-110); IRON(TIBC) 22.8 ug/dL (49-181); POTASSIUM 3.5 mmol/L (3.6-5.0)
[2019-10-06] MEDS ORDERED: FERROUS SULFATE 325 MG TABLET PO SCH (10:00)
[2019-10-06] MEDS ORDERED: LISINOPRIL 10 MG TABLET PO SCH (10:00)
[2019-10-06] MEDS: METOPROLOL SUCCINATE 25 MG TAB.SR.24H PO SCH (10:51)
[2019-10-06] MEDS: ASCORBIC ACID 500 MG TABLET PO SCH ×2 (10:51→17:12)
[2019-10-06] MEDS: ASPIRIN 81 MG TABLET, ENT COATED PO SCH (10:52)
[2019-10-06] MEDS: MULTIVITAMIN TABLET PO SCH (10:52)
[2019-10-06] MEDS: CLOPIDOGREL BISULFATE 75 MG TABLET PO SCH (10:52)
[2019-10-06] MEDS: LISINOPRIL 10 MG TABLET PO SCH (10:54)
[2019-10-06] MEDS: POTASSIUM CHLORIDE 10 MEQ TABLET.ER PO SCH (10:54)
[2019-10-06] MEDS: CEFTRIAXONE 1 GM/D5W RTU 1 GM/50 ML RTUPB IV SCH (10:57)
[2019-10-06] MEDS: ZINC SULFATE 220 MG CAPSULE PO SCH (11:02)
--- NOTE | 2019-10-06 12:22 | PDOC PROGRESS REPORT ---
Subjective Progress Note for:: 10/06/19 Subjective:: The patient reports that he does feel a little better today. He complains that his left elbow is stiff. Reason For Visit: ACUTE KIDNEY INJURY, RHABDOMYOLYSIS, LACERATION Physical Exam Vital Signs: Temp Pulse Resp BP Pulse Ox 97.7 F 76 16 136/52 H 98 10/05/19 23:28 10/06/19 08:21 10/06/19 08:21 10/05/19 23:28 10/06/19 08:21 Intake & Output 10/05/19 10/06/19 10/07/19 06:59 06:59 06:59 Intake Total 1700 50 Balance 1700 50 Weight 82.9 kg General appearance: PRESENT: no acute distress, well-developed - But frail- appearing 69-year-old patient who looks older than his stated age. Head exam: PRESENT: atraumatic, normocephalic Eye exam: PRESENT: conjunctiva pale, scleral icterus Ear exam: PRESENT: normal external ear exam. ABSENT: bleeding, drainage Mouth exam: PRESENT: dry mucosa, tongue midline Neck exam: ABSENT: carotid bruit, full ROM - Nephrosis, JVD, lymphadenopathy Respiratory exam: PRESENT: clear to auscultation chirag, prolonged expiratory phas, symmetrical, unlabored. ABSENT: rales, rhonchi, tachypnea, wheezes Cardiovascular exam: PRESENT: RRR, +S1, +S2. ABSENT: irregular rhythm GI/Abdominal exam: PRESENT: normal bowel sounds, soft. ABSENT: distended, guarding, tenderness Rectal exam: PRESENT: deferred Extremities exam: PRESENT: other - Left arm with large laceration proximal forearm. What appears to be a small skin tear above the elbow. There are also some skin tears on the right upper arm. One on the left forearm has sutures in place. There is still a large area, approximately 3 x 5 cm, with exposed subcutaneous adipose tissue. Neurological exam: PRESENT: awake, oriented to person, oriented to place, oriented to situation, CN II-XII grossly intact Psychiatric exam: PRESENT: flat affect. ABSENT: agitated, anxious Focused psych exam: ABSENT: delusional, paranoid, restlessness Skin exam: PRESENT: dry, warm, other - Multiple ecchymotic areas as well as chronic pigment deposition on arms. Skin tears as above. Results Laboratory Results: 10/06/19 05:49 10/06/19 05:49 10/05/19 10/05/19 10/05/19 15:22 15:22 15:22 WBC 13.7 H RBC 4.64 Hgb 10.8 L Hct 34.4 L MCV 74 L MCH 23.2 L MCHC 31.3 L RDW 16.5 H Plt Count 478 H Seg Neutrophils % 84.9 H Retic Count (auto) Sodium 140.1 Potassium 3.9 Chloride 103 Carbon Dioxide 25 Anion Gap 12 BUN 33 H Creatinine 1.62 H Est GFR ( Amer) 51 L Glucose 91 Lactic Acid 2.4 H Calcium 8.2 L Magnesium Iron TIBC % Saturation Transferrin Ferritin Total Bilirubin 2.3 H AST 81 H Alkaline Phosphatase 73 Total Protein 5.8 L Albumin 3.0 L Vitamin B12 Folate Urine Color Urine Appearance Urine pH Ur Specific [place] Urine Protein Urine Glucose (UA) Urine Ketones Urine Blood Urine RBC (Auto) 10/05/19 10/05/19 10/05/19 17:48 17:48 22:00 WBC RBC Hgb Hct MCV MCH MCHC RDW Plt Count Seg Neutrophils % Retic Count (auto) Sodium 139.5 Potassium 3.8 Chloride 103 Carbon Dioxide 25 Anion Gap 12 BUN 32 H Creatinine 1.53 H Est GFR ( Amer) 55 L Glucose 86 Lactic Acid 1.8 Calcium 8.0 L Magnesium Iron TIBC % Saturation Transferrin Ferritin Total Bilirubin AST Alkaline Phosphatase Total Protein Albumin Vitamin B12 Folate Urine Color [place] Urine Appearance CLEAR Urine pH 5.0 Ur Specific [place] 1.018 Urine Protein NEGATIVE Urine Glucose (UA) NEGATIVE Urine Ketones TRACE H Urine Blood SMALL H Urine RBC (Auto) 2 10/06/19 10/06/19 10/06/19 05:49 05:49 05:49 WBC 6.1 RBC 3.82 L Hgb 9.0 L Hct 27.9 L MCV 73 L MCH 23.5 L MCHC 32.1 RDW 16.8 H Plt Count 307 Seg Neutrophils % 71.9 Retic Count (auto) 2.52 Sodium 142.1 Potassium 3.5 L Chloride 108 H Carbon Dioxide 23 Anion Gap 11 BUN 26 H Creatinine 1.18 Est GFR ( Amer) > 60 Glucose 70 L Lactic Acid Calcium 7.7 L Magnesium 1.8 Iron 22.8 L TIBC 208 L % Saturation 11 Transferrin 134.80 L Ferritin 178.00 Total Bilirubin 1.8 H AST 71 H Alkaline Phosphatase 59 Total Protein 5.0 L Albumin 2.5 L Vitamin B12 > 1000.0 H Folate 5.60 Urine Color Urine Appearance Urine pH Ur Specific [place] Urine Protein Urine Glucose (UA) Urine Ketones Urine Blood Urine RBC (Auto) 10/05/19 10/05/19 10/05/19 15:22 15:22 17:48 Creatine Kinase 1191 H 1158 H CK-MB (CK-2) 14.00 H Troponin I 0.100 NT-Pro-B Natriuret Pep 10/05/19 10/06/19 10/06/19 17:48 05:49 05:49 Creatine Kinase 659 H CK-MB (CK-2) Troponin I 0.100 NT-Pro-B Natriuret Pep 2990 H 2450 H Impressions: Chest X-Ray 10/05/19 14:26 IMPRESSION: Cannot exclude a limited pneumonia in either lower lobe. Head CT 10/05/19 14:26 IMPRESSION: Mild involutional changes. Intracranial atherosclerosis. No acute intracranial imaging findings. EVIDENCE OF ACUTE STROKE: NO. Cervical Spine CT 10/05/19 14:28 IMPRESSION: Cervical kyphosis. Extensive degenerative disc disease and spondylosis. Multiple laminectomies. No acute finding. Elbow X-Ray 10/05/19 20:54 IMPRESSION: No fracture. Assessment and Plan - Diagnosis (1) Rhabdomyolysis Qualifiers: Rhabdomyolysis type: traumatic Encounter type: initial encounter Qualified Code(s): T79.6XXA - Traumatic ischemia of muscle, initial encounter Is this a current diagnosis for this admission?: Yes Plan: 10/05/2019 The patient fell and lay on the floor for many hours. His creatinine kinase is elevated. This along with dehydration are likely the cause of the acute kidney failure with acute tubular necrosis. We will give IV fluids and monitor intake and output. We will check serial labs to monitor renal function. We need to be mindful of his history of heart failure when giving IV fluids. 10/05/2019 Creatinine kinase is down to 659. We will continue very gentle IV fluids. (2) Acute kidney injury (JUDY) with acute tubular necrosis (ATN) Is this a current diagnosis for this admission?: Yes Plan: 10/05/2019 Due to a combination of dehydration and rhabdomyolysis. The patient is also on lisinopril but I believe he missed the dose while he was stuck on the floor. Will give IV fluids being mindful of his history of heart failure. We will m onitor renal function closely. I have held his daily Lasix for tonight. 10/06/2019 Serum creatinine is down from 1.53 into the normal range at 1.18. Continue gentle fluids as above and monitor renal function. (3) Laceration of left forearm without complication Qualifiers: Encounter type: subsequent encounter Qualified Code(s): S51.812D - Laceration without foreign body of left forearm, subsequent encounter Is this a current diagnosis for this admission?: Yes Plan: 10/05/2019 The patient's arm will be sutured in the emergency department. He will be on ceftriaxone. The big risk is his extremely fragile skin. If the wound dehiscence then I will clean it and we will laying the skin flap down as best as possible. Approximate the edges as closely as possible. There will certainly be exposed space. We will use Xeroform through the weekend and possibly get collagen dressings with a wound care evaluation. I have added a multivitamin and zinc to help with his healing. 10/06/2019 We will utilize Xeroform dressings through the weekend. Will consult wound care on Tuesday. The patient will benefit from collagen dressings with silver (4) Chronic obstructive pulmonary disease Qualifiers: COPD type: unspecified COPD Qualified Code(s): J44.9 - Chronic obstructive pulmonary disease, unspecified Is this a current diagnosis for this admission?: Yes Plan: I will initially utilize nebulizer treatments. The patient will try to get back to his baseline 2 L to 3 L nasal cannula. I will likely follow him over to his own inhaler regimen or substitute Trelegy while he is in the hospital. No steroids at this point. 10/06/2019 Tomorrow will order his Trelegy and return scheduled nebulizers to as needed. (5) Dehydration Is this a current diagnosis for this admission?: Yes Plan: 10/05/2019 Judicious use of IV fluids and the patient's baseline medications. Serial labo ratory studies are ordered. 10/06/2019 BUN is down to 26 from 32. Continue gentle fluids. I encouraged the patient to drink more water. (6) Hyperbilirubinemia Is this a current diagnosis for this admission?: Yes Plan: 10/05/2019 Likely due to a constellation of events including the dehydration, rhabdo and kidney injury. His bilirubin in fact was elevated when I admitted the patient in April. While we are monitoring his renal function we will also monitor liver function with serial labs. His prothrombin time is slightly elevated. This could also be a reflection of his nutritional status. We will continue to monitor closely. 10/06/2019 Improving. Bilirubin is down to 1.8 from 2.3. (7) Leukocytosis Qualifiers: Leukocytosis type: unspecified Qualified Code(s): D72.829 - Elevated white blood cell count, unspecified Is this a current diagnosis for this admission?: Yes Plan: 10/05/2019 This is most likely a physiologic response to the recent events and current pathology. He will be on ceftriaxone for the laceration. There is no suggestion of pneumonia. Blood cultures and urine culture have been ordered. 10/06/2019 White blood cell count is now normal. (8) Anemia Qualifiers: Anemia type: iron deficiency Iron deficiency anemia type: inadequate dietary iron intake Qualified Code(s): D50.8 - Other iron deficiency anemias Is this a current diagnosis for this admission?: Yes Plan: 10/05/2019 The patient reports that his primary care was working up his anemia. Evidently he was to be referred to hematology. I have ordered anemia work-up in the morning. He will be on a multivitamin and iron supplement as well as vitamin C. 10/06/2019 Laboratory studies confirm iron deficiency anemia. My guess is that his oral intake is poor at home. He has been started on oral iron but I have ordered a dose of iron sucrose. We will continue to monitor hemoglobin. (9) Chronic diastolic heart failure Is this a current diagnosis for this admission?: Yes Plan: 10/05/2019 Echocardiogram in April 2018 revealed a normal ejection fraction with grade 1/4 diastolic failure. We will scrutinize his IV fluids so as not to create volume overload. 10/06/2019 The brain natruretic peptide went from 2990 down to 2415. He is tolerating gentle fluids. Consider resuming his furosemide tomorrow. (10) Chronic neck and back pain Is this a current diagnosis for this admission?: Yes Plan: 10/05/2019 Continue opiate therapy since this is chronic and I do not want to cause withdrawal. 10/06/2019 Continue pain management (11) Essential hypertension Is this a current diagnosis for this admission?: Yes Plan: 10/05/2019 The patient is on metoprolol, lisinopril and furosemide. I am holding the furosemide today due to the dehydration. I will likely utilize all 3 medications tomorrow but this will be based on his volume status, pulse and blood pressure. 10/06/2019 Blood pressures have been borderline to low. They seem to be improved today. We will continue to monitor closely and add medications judiciously. (12) Pulmonary hypertension Is this a current diagnosis for this admission?: Yes Plan: 10/05/2019 Identified with the echocardiogram in April 2018. Continue current medication regimen. This may be contributing somewhat to his shortness of breath. 10/06/2019 Chronic and stable (13) Lactic acidemia Is this a current diagnosis for this admission?: Yes Plan: 10/05/2019 The patient received 2 L of fluid in the emergency department and his lactic acid normalized. 10/06/2019 Resolved - Time Time Spent with patient: 15-24 minutes Medications reviewed and adjusted accordingly: Yes Anticipated discharge: Home with Homehealth - Most likely Within: within 72 hours
[2019-10-06] MEDS: NORMAL SALINE 1000 ML 1,000 ML IV PRN ×2 (12:48→22:06)
[2019-10-06] MEDS ORDERED: IRON SUCROSE COMPLEX INJ/PF 100 MG/5 ML SDV IV ONE (13:30)
[2019-10-06] MEDS ORDERED: METOPROLOL TARTRATE PF/INJ 5 MG/5 ML SDV IV ONE (17:59)
[2019-10-07] MEDS: IPRATROPIUM/ALBUTEROL 0.5-2.5 MG/3 ML AMPUL NEB SCH ×3 (00:34→20:02)
[2019-10-07] MEDS: BUDESONIDE NEB 0.5 MG/2 ML AMPUL NEB SCH ×3 (00:34→20:02)
[2019-10-07] MEDS: METOPROLOL TARTRATE PF/INJ 5 MG/5 ML SDV IV PRN ×3 (01:55→18:54)
[2019-10-07] MEDS: HEPARIN SOD (PORCINE) 5,000 UNIT/ML 1 ML VIAL SUBCUT SCH ×3 (05:49→21:15)
[2019-10-07 08:10] LABS: ABSOLUTE BASOPHILS # (AUTO) 0.1 10^3/uL (0.0-0.2); ABSOLUTE EOSINOPHILS # (AUTO) 0.3 10^3/uL (0.0-0.6); ABSOLUTE LYMPHOCYTES (AUTO) 0.9 10^3/uL (0.5-4.7); ABSOLUTE MONOCYTES (AUTO) 0.3 10^3/uL (0.1-1.4); BASOPHILS % (AUTO) 1.2 % (0-2); EOSINOPHILS % (AUTO) 7.4 % (0-6); HEMATOCRIT 28.7 % (37.9-51.0); HEMOGLOBIN 9.2 g/dL (13.5-17.0); LYMPHOCYTES % (AUTO) 19.8 % (13-45); MEAN CORPUSCULAR HEMOGLOBIN 23.4 pg (27.0-33.4); MEAN CORPUSCULAR HGB CONC 32.2 g/dL (32.0-36.0); MEAN CORPUSCULAR VOLUME 73 fl (80-97); MONOCYTES % (AUTO) 7.3 % (3-13); PLATELET COUNT 300 10^3/uL (150-450); RED BLOOD COUNT 3.94 10^6/uL (4.35-5.55); RED CELL DISTRIBUTION WIDTH 17.2 % (11.5-14.0); SEGMENTED NEUTROPHILS % (AUTO) 64.3 % (42-78); TOTAL CELLS COUNTED % (AUTO) 100 %; WHITE BLOOD COUNT 4.6 10^3/uL (4.0-10.5)
[2019-10-07 08:34] LABS: ALBUMIN 2.6 g/dL (3.5-5.0); ALKALINE PHOSPHATASE 55 U/L (38-126); ASPARTATE AMINO TRANSFERASE 60 U/L (17-59); BILIRUBIN,DIRECT 0.6 mg/dL (0.0-0.4); BILIRUBIN,TOTAL 1.3 mg/dL (0.2-1.3); BLOOD UREA NITROGEN 19 mg/dL (7-20); CARBON DIOXIDE 27 mmol/L (22-30); CHLORIDE 111 mmol/L (98-107); CREATINE KINASE 247 U/L (55-170); GLUCOSE 103 mg/dL (75-110); POTASSIUM 3.6 mmol/L (3.6-5.0); TOTAL PROTEIN 5.3 g/dL (6.3-8.2)
[2019-10-07 08:42] LABS: ANION GAP 4 (5-19)
--- NOTE | 2019-10-07 08:54 | PDOC PROGRESS REPORT ---
Subjective Progress Note for:: 10/07/19 Subjective:: Patient currently getting nebulizer treatment. We reviewed wound care. We reviewed the possibility of home with home health versus detention placement. Reason For Visit: ACUTE KIDNEY INJURY, RHABDOMYOLYSIS, LACERATION Physical Exam Vital Signs: Temp Pulse Resp BP Pulse Ox 97.6 F 81 17 136/58 H 93 10/07/19 04:20 10/07/19 07:00 10/07/19 04:20 10/07/19 04:20 10/07/19 04:20 Intake & Output 10/06/19 10/07/19 10/08/19 06:59 06:59 06:59 Intake Total 1700 2190 Balance 1700 2190 Weight 82.9 kg 83.8 kg General appearance: PRESENT: no acute distress, cooperative, well-developed Head exam: PRESENT: atraumatic, normocephalic Ear exam: PRESENT: normal external ear exam. ABSENT: bleeding, drainage Mouth exam: PRESENT: other - Nebulizer mask in place Neck exam: ABSENT: carotid bruit, full ROM - Kyphosis, lymphadenopathy Respiratory exam: PRESENT: prolonged expiratory phas, rales - At bases, symmetrical, unlabored. ABSENT: accessory muscle use, tachypnea, wheezes Cardiovascular exam: PRESENT: RRR, +S1, +S2. ABSENT: diastolic murmur, irregular rhythm, systolic murmur GI/Abdominal exam: PRESENT: normal bowel sounds, soft. ABSENT: distended, guarding, tenderness Rectal exam: PRESENT: deferred Extremities exam: PRESENT: pedal edema Neurological exam: PRESENT: alert, awake, oriented to person, oriented to place, oriented to situation, CN II-XII grossly intact Psychiatric exam: PRESENT: flat affect. ABSENT: agitated, anxious Focused psych exam: ABSENT: delusional, paranoid, restlessness Skin exam: PRESENT: skin tears, other - Wound care/laceration left forearm he is he still on the phone only on this is over the keratinocytic tell him he can go home as he wants Results Laboratory Results: 10/07/19 07:09 10/07/19 07:09 WBC 4.6 RBC 3.94 L Hgb 9.2 L Hct 28.7 L MCV 73 L MCH 23.4 L MCHC 32.2 RDW 17.2 H Plt Count 300 Seg Neutrophils % 64.3 10/05/19 21:35 Blood Blood Culture (PCR) - Final Staphylococcus Species 10/05/19 21:20 Blood Blood Culture (PCR) - Final Staphylococcus Species Acinetobacter Baumannii 10/05/19 10/05/19 10/05/19 15:22 15:22 17:48 Creatine Kinase 1191 H 1158 H CK-MB (CK-2) 14.00 H Troponin I 0.100 NT-Pro-B Natriuret Pep 10/05/19 10/06/19 10/06/19 17:48 05:49 05:49 Creatine Kinase 659 H CK-MB (CK-2) Troponin I 0.100 NT-Pro-B Natriuret Pep 2990 H 2450 H Impressions: Chest X-Ray 10/05/19 14:26 IMPRESSION: Cannot exclude a limited pneumonia in either lower lobe. Head CT 10/05/19 14:26 IMPRESSION: Mild involutional changes. Intracranial atherosclerosis. No acute intracranial imaging findings. EVIDENCE OF ACUTE STROKE: NO. Cervical Spine CT 10/05/19 14:28 IMPRESSION: Cervical kyphosis. Extensive degenerative disc disease and spondylosis. Multiple laminectomies. No acute finding. Elbow X-Ray 10/05/19 20:54 IMPRESSION: No fracture. Assessment and Plan - Diagnosis (1) Rhabdomyolysis Qualifiers: Rhabdomyolysis type: traumatic Encounter type: initial encounter Qualified Code(s): T79.6XXA - Traumatic ischemia of muscle, initial encounter Is this a current diagnosis for this admission?: Yes Plan: 10/05/2019 The patient fell and lay on the floor for many hours. His creatinine kinase is elevated. This along with dehydration are likely the cause of the acute kidney failure with acute tubular necrosis. We will give IV fluids and monitor intake and output. We will check serial labs to monitor renal function. We need to be mindful of his history of heart failure when giving IV fluids. 10/05/2019 Creatinine kinase is down to 659. We will continue very gentle IV fluids. 10/07/2019 Creatinine kinase is down to 247. It should normalize within the next day or 2. Bilirubin is now normal. Rhabdomyolysis is basically resolved. (2) Acute kidney injury (JUDY) with acute tubular necrosis (ATN) Is this a current diagnosis for this admission?: Yes Plan: 10/05/2019 Due to a combination of dehydration and rhabdomyolysis. The patient is also on lisinopril but I believe he missed the dose while he was stuck on the floor. Will give IV fluids being mindful of his history of heart failure. We will monitor renal function closely. I have held his daily Lasix for tonight. 10/06/2019 Serum creatinine is down from 1.53 into the normal range at 1.18. Continue gentle fluids as above and monitor renal function. 10/07/2019 Renal function normal. JUDY resolved. (3) Laceration of left forearm without complication Qualifiers: Encounter type: subsequent encounter Qualified Code(s): S51.812D - Laceration without foreign body of left forearm, subsequent encounter Is this a current diagnosis for this admission?: Yes Plan: 10/05/2019 The patient's arm will be sutured in the emergency department. He will be on ceftriaxone. The big risk is his extremely fragile skin. If the wound dehisce nce then I will clean it and we will laying the skin flap down as best as possible. Approximate the edges as closely as possible. There will certainly be exposed space. We will use Xeroform through the weekend and possibly get collagen dressings with a wound care evaluation. I have added a multivitamin and zinc to help with his healing. 10/06/2019 We will utilize Xeroform dressings through the weekend. Will consult wound care on Tuesday. The patient will benefit from collagen dressings with silver 10/07/2019 We will change to Adaptic dressing. I will also apply Aquaphor to his skin as this will help with the dryness and fragile nature. I will ask the wound center to evaluate on Tuesday in anticipation of outpatient wound care appointment. (4) Chronic obstructive pulmonary disease Qualifiers: COPD type: unspecified COPD Qualified Code(s): J44.9 - Chronic obstructive pulmonary disease, unspecified Is this a current diagnosis for this admission?: Yes Plan: I will initially utilize nebulizer treatments. The patient will try to get back to his baseline 2 L to 3 L nasal cannula. I will likely follow him over to his own inhaler regimen or substitute Trelegy while he is in the hospital. No steroids at this point. 10/06/2019 Tomorrow will order his Trelegy and return scheduled nebulizers to as needed. 10/07/2019 Trelegy restarted today. Decrease scheduled nebulizer treatments to every 12 hours. Attempt to taper oxygen back to the 2-1/2 L that he uses at home (5) Anemia Qualifiers: Anemia type: iron deficiency Iron deficiency anemia type: inadequate dietary iron intake Qualified Code(s): D50.8 - Other iron deficiency anemias Is this a current diagnosis for this admission?: Yes Plan: 10/05/2019 The patient reports that his primary care was working up his anemia. Evidently he was to be referred to hematology. I have ordered anemia work-up in the morning. He will be on a multivitamin and iron supplement as well as vitamin C. 10/06/2019 Laboratory studies confirm iron deficiency anemia. My guess is that his oral intake is poor at home. He has been started on oral iron but I have ordered a dose of iron sucrose. We will continue to monitor hemoglobin. 10/07/2019 Hemoglobin was 9 yesterday. It is 9.2 today. Anemia is improving. He received IV iron yesterday. Today I will increase oral iron supplement to twice a day. (6) Chronic diastolic heart failure Is this a current diagnosis for this admission?: Yes Plan: 10/05/2019 Echocardiogram in April 2018 revealed a normal ejection fraction with grade 1/4 diastolic failure. We will scrutinize his IV fluids so as not to create volume overload. 10/06/2019 The brain natruretic peptide went from 2990 down to 2415. He is tolerating gentle fluids. Consider resuming his furosemide tomorrow. 10/07/2019 Stable. I will resume furosemide but at the decreased dose of 20 mg daily. (7) Chronic neck and back pain Is this a current diagnosis for this admission?: Yes Plan: 10/05/2019 Continue opiate therapy since this is chronic and I do not want to cause withdrawal. 10/06/2019 Continue pain management 10/07/2019 We will need to scrutinize pain management regimen. Increased pain medications could contribute to instability and falls. (8) Essential hypertension Is this a current diagnosis for this admission?: Yes Plan: 10/05/2019 The patient is on metoprolol, lisinopril and furosemide. I am holding the furosemide today due to the dehydration. I will likely utilize all 3 medications tomorrow but this will be based on his volume status, pulse and blood pressure. 10/06/2019 Blood pressures have been borderline to low. They seem to be improved today. We will continue to monitor closely and add medications judiciously. 10/07/2019 Blood pressure much better this morning. Continue to monitor with vital signs. (9) Pulmonary hypertension Is this a current diagnosis for this admission?: Yes Plan: 10/05/2019 Identified with the echocardiogram in April 2018. Continue current medication regimen. This may be contributing somewhat to his shortness of breath. 10/06/2019 Chronic and stable 10/07/2019 Chronic and stable. No specific intervention other than current medication regimen and treating COPD. (10) Lactic acidemia Is this a current diagnosis for this admission?: Yes Plan: 10/05/2019 The patient received 2 L of fluid in the emergency department and his lactic acid normalized. 10/06/2019 Resolved 10/07/2019 No further need to monitor lactic acid levels. (11) Hyperbilirubinemia Is this a current diagnosis for this admission?: Yes Plan: 10/05/2019 Likely due to a constellation of events including the dehydration, rhabdo and kidney injury. His bilirubin in fact was elevated when I admitted the patient in April. While we are monitoring his renal function we will also monitor liver function with serial labs. His prothrombin time is slightly elevated. This could also be a reflection of his nutritional status. We will continue to monitor closely. 10/06/2019 Improving. Bilirubin is down to 1.8 from 2.3. 10/07/2019 Resolved (12) Dehydration Is this a current diagnosis for this admission?: Yes Plan: 10/05/2019 Judicious use of IV fluids and the patient's baseline medications. Serial laboratory studies are ordered. 10/06/2019 BUN is down to 26 from 32. Continue gentle fluids. I encouraged the patient to drink more water. 10/07/2019 Resolved (13) Leukocytosis Qualifiers: Leukocytosis type: unspecified Qualified Code(s): D72.829 - Elevated white blood cell count, unspecified Is this a current diagnosis for this admission?: Yes Plan: 10/05/2019 This is most likely a physiologic response to the recent events and current pathology. He will be on ceftriaxone for the laceration. There is no suggesti on of pneumonia. Blood cultures and urine culture have been ordered. 10/06/2019 White blood cell count is now normal. 10/07/2019 Resolved - Time Time Spent with patient: 15-24 minutes Medications reviewed and adjusted accordingly: Yes Anticipated discharge: Home with Homehealth, SNF - If patient's functional a bility does not improve.
[2019-10-07] MEDS ORDERED: BUPRENORPHINE 5 MCG TD SCH (10:00)
[2019-10-07] MEDS: ASPIRIN 81 MG TABLET, ENT COATED PO SCH (11:13)
[2019-10-07] MEDS: MULTIVITAMIN TABLET PO SCH (11:13)
[2019-10-07] MEDS: FERROUS SULFATE 325 MG TABLET PO SCH ×2 (11:14→18:33)
[2019-10-07] MEDS: POTASSIUM CHLORIDE 10 MEQ TABLET.ER PO SCH (11:14)
[2019-10-07] MEDS: CLOPIDOGREL BISULFATE 75 MG TABLET PO SCH (11:15)
[2019-10-07] MEDS: FUROSEMIDE 20 MG TABLET PO SCH (11:15)
[2019-10-07] MEDS: ASCORBIC ACID 500 MG TABLET PO SCH ×2 (11:15→18:33)
[2019-10-07] MEDS: GABAPENTIN 300 MG CAPSULE PO SCH ×2 (11:15→21:14)
[2019-10-07] MEDS: METOPROLOL SUCCINATE 25 MG TAB.SR.24H PO SCH (11:16)
[2019-10-07] MEDS: LISINOPRIL 10 MG TABLET PO SCH (11:16)
[2019-10-07] MEDS: ZINC SULFATE 220 MG CAPSULE PO SCH (11:17)
[2019-10-07] MEDS: FAMOTIDINE 20 MG TABLET PO SCH ×2 (11:17→21:14)
[2019-10-07] MEDS: CEFTRIAXONE 1 GM/D5W RTU 1 GM/50 ML RTUPB IV SCH (11:18)
[2019-10-07] MEDS: FLUTICASONE/UMECLIDIN/VILANTER 100-62.5-25 MCG/DOSE IH SCH (11:21)
[2019-10-07] MEDS: BACITRACIN ZINC OINTMENT 15 GM TP PRN (11:22)
[2019-10-07] MEDS: PANTOT AC/MIN OIL/PET HY-PHL OINT 50 GM TOP SCH ×2 (11:22→18:37)
[2019-10-07] MEDS ORDERED: VANCOMYCIN HCL 0 MG in DEXTROSE 5%-WATER 250 ML IV NR (13:30)
--- NOTE | 2019-10-07 14:02 | RADIOLOGY REPORT (SQ) ---
EXAM DESCRIPTION: CHEST SINGLE VIEW IMAGES COMPLETED DATE/TIME: 10/07/2019 1:44 pm REASON FOR STUDY: aspiration COMPARISON: 10/05/2019 TECHNIQUE: Single frontal radiographic view of the chest acquired. NUMBER OF VIEWS: One view. LIMITATIONS: None. FINDINGS: LUNGS AND PLEURA: No pneumothorax. Similar right basilar scarring -subsegmental atelectas is. No acute consolidation or pleural effusion. MEDIASTINUM AND HILAR STRUCTURES: Stable. HEART AND VASCULAR STRUCTURES: Stable. BONES: No acute findings. HARDWARE: None in the chest. OTHER: No other significant finding. IMPRESSION: Similar right basilar scarring -subsegmental atelectasis. No acute consolidation or ple ural effusion. TECHNICAL DOCUMENTATION: JOB ID: [id number] [employer]- All Rights Reserved Reading location - IP/workstation name: [employer]
[2019-10-07 14:10] LABS: APPEARANCE,URINE CLEAR; BILIRUBIN,URINE NEGATIVE (NEGATIVE); COLOR,URINE AMBER; GLUCOSE, URINE NEGATIVE (NEGATIVE); KETONES,URINE NEGATIVE (NEGATIVE); PROTEIN,URINE NEGATIVE (NEGATIVE); URINE SPECIFIC GRAVITY 1.016
[2019-10-07] MEDS ORDERED: METOPROLOL TARTRATE 50 MG TABLET PO ONE (16:01)
[2019-10-07] MEDS ORDERED: METOPROLOL TARTRATE PF/INJ 5 MG/5 ML SDV IV ONE ×3 (16:03→18:10)
[2019-10-07] MEDS: VANCOMYCIN HCL 1,000 MG in DEXTROSE 5%-WATER 250 ML IV SCH (18:38)
[2019-10-07] MEDS: TEMAZEPAM 7.5 MG CAPSULE PO SCH (21:13)
[2019-10-07] MEDS: ATORVASTATIN CALCIUM 80 MG TABLET PO SCH (21:14)
[2019-10-07] MEDS: CEFEPIME 1 GM/D5W RTU 1 GM/50 ML RTUPB IV SCH (21:15)
[2019-10-08] MEDS: METOPROLOL TARTRATE PF/INJ 5 MG/5 ML SDV IV PRN (02:54)
[2019-10-08] MEDS: BACITRACIN ZINC OINTMENT 15 GM TP PRN ×3 (03:09→22:28)
[2019-10-08] MEDS: VANCOMYCIN HCL 1,000 MG in DEXTROSE 5%-WATER 250 ML IV SCH ×2 (05:17→17:06)
[2019-10-08] MEDS: HEPARIN SOD (PORCINE) 5,000 UNIT/ML 1 ML VIAL SUBCUT SCH ×3 (05:18→21:22)
[2019-10-08 06:28] LABS: ABSOLUTE BASOPHILS # (AUTO) 0.1 10^3/uL (0.0-0.2); ABSOLUTE EOSINOPHILS # (AUTO) 0.3 10^3/uL (0.0-0.6); ABSOLUTE MONOCYTES (AUTO) 0.3 10^3/uL (0.1-1.4); BASOPHILS % (AUTO) 1.4 % (0-2); EOSINOPHILS % (AUTO) 7.2 % (0-6); HEMATOCRIT 29.3 % (37.9-51.0); HEMOGLOBIN 9.6 g/dL (13.5-17.0); LYMPHOCYTES % (AUTO) 21.2 % (13-45); MEAN CORPUSCULAR HEMOGLOBIN 23.5 pg (27.0-33.4); MEAN CORPUSCULAR VOLUME 72 fl (80-97); MONOCYTES % (AUTO) 6.4 % (3-13); PLATELET COUNT 342 10^3/uL (150-450); RED CELL DISTRIBUTION WIDTH 16.7 % (11.5-14.0); SEGMENTED NEUTROPHILS % (AUTO) 63.8 % (42-78); TOTAL CELLS COUNTED % (AUTO) 100 %; WHITE BLOOD COUNT 4.7 10^3/uL (4.0-10.5)
[2019-10-08 06:48] LABS: ALBUMIN 2.6 g/dL (3.5-5.0); ALKALINE PHOSPHATASE 62 U/L (38-126); ANION GAP 6 (5-19); ASPARTATE AMINO TRANSFERASE 52 U/L (17-59); BILIRUBIN,DIRECT 0.4 mg/dL (0.0-0.4); BILIRUBIN,TOTAL 1.2 mg/dL (0.2-1.3); BLOOD UREA NITROGEN 13 mg/dL (7-20); CALCIUM 8.5 mg/dL (8.4-10.2); CARBON DIOXIDE 29 mmol/L (22-30); CHLORIDE 106 mmol/L (98-107); CREATINE KINASE 171 U/L (55-170); GLUCOSE 92 mg/dL (75-110); POTASSIUM 3.4 mmol/L (3.6-5.0); TOTAL PROTEIN 5.2 g/dL (6.3-8.2)
[2019-10-08] MEDS: IPRATROPIUM/ALBUTEROL 0.5-2.5 MG/3 ML AMPUL NEB SCH ×2 (08:04→19:56)
[2019-10-08] MEDS: BUDESONIDE NEB 0.5 MG/2 ML AMPUL NEB SCH ×2 (08:04→19:56)
[2019-10-08] MEDS: GABAPENTIN 300 MG CAPSULE PO SCH ×2 (10:44→21:22)
[2019-10-08] MEDS: CLOPIDOGREL BISULFATE 75 MG TABLET PO SCH (10:44)
[2019-10-08] MEDS: METOPROLOL SUCCINATE 25 MG TAB.SR.24H PO SCH (10:44)
[2019-10-08] MEDS: ASPIRIN 81 MG TABLET, ENT COATED PO SCH (10:44)
[2019-10-08] MEDS: FAMOTIDINE 20 MG TABLET PO SCH ×2 (10:44→21:22)
[2019-10-08] MEDS: LISINOPRIL 10 MG TABLET PO SCH (10:44)
[2019-10-08] MEDS: FUROSEMIDE 20 MG TABLET PO SCH (10:45)
[2019-10-08] MEDS: ASCORBIC ACID 500 MG TABLET PO SCH ×2 (10:45→17:03)
[2019-10-08] MEDS: FERROUS SULFATE 325 MG TABLET PO SCH ×2 (10:46→17:03)
[2019-10-08] MEDS: POTASSIUM CHLORIDE 10 MEQ TABLET.ER PO SCH ×2 (10:46→21:21)
[2019-10-08] MEDS: MULTIVITAMIN TABLET PO SCH (10:46)
[2019-10-08] MEDS: CEFEPIME 1 GM/D5W RTU 1 GM/50 ML RTUPB IV SCH ×2 (10:47→21:22)
[2019-10-08] MEDS: ZINC SULFATE 220 MG CAPSULE PO SCH (10:48)
[2019-10-08] MEDS: FLUTICASONE/UMECLIDIN/VILANTER 100-62.5-25 MCG/DOSE IH SCH (10:55)
[2019-10-08] MEDS: PANTOT AC/MIN OIL/PET HY-PHL OINT 50 GM TOP SCH ×2 (11:03→18:18)
--- NOTE | 2019-10-08 11:48 | PDOC PROGRESS REPORT ---
Subjective Progress Note for:: 10/08/19 Subjective:: The patient is in the process of eating. He is feeling a little better. They put a Espitia catheter in and got over a liter out. I believe that is why he was a little tachycardic. I also spoke to his daughter today. There is significant concern because he lives alone. He fell the day before admission and sustained skeletal muscle damage with rhabdomyolysis. His diet is poor. Will at least need home health and possibly short skilled stay Reason For Visit: ACUTE KIDNEY INJURY, RHABDOMYOLYSIS, LACERATION Physical Exam Vital Signs: Temp Pulse Resp BP Pulse Ox 98.5 F 79 18 139/66 H 94 10/08/19 07:45 10/08/19 08:06 10/08/19 08:06 10/08/19 07:45 10/08/19 08:06 Intake & Output 10/07/19 10/08/19 10/09/19 06:59 06:59 06:59 Intake Total 2190 950 Output Total 300 Balance 2190 650 Weight 83.8 kg 83.9 kg General appearance: PRESENT: no acute distress Ear exam: PRESENT: normal external ear exam. ABSENT: bleeding, drainage Neck exam: PRESENT: other - Kyphosis Respiratory exam: PRESENT: clear to auscultation chirag, symmetrical, unlabored. ABSENT: rales, rhonchi, tachypnea, wheezes Cardiovascular exam: PRESENT: RRR, +S1, +S2. ABSENT: systolic murmur GI/Abdominal exam: PRESENT: soft. ABSENT: distended, guarding, tenderness Rectal exam: PRESENT: deferred Gentrourinary exam: PRESENT: indwelling catheter Neurological exam: PRESENT: alert, awake, oriented to person, oriented to place, oriented to situation Psychiatric exam: PRESENT: flat affect. ABSENT: agitated, anxious Results Laboratory Results: 10/08/19 05:03 10/08/19 05:03 10/07/19 10/08/19 10/08/19 13:41 05:03 05:03 WBC 4.7 RBC 4.10 L Hgb 9.6 L Hct 29.3 L MCV 72 L MCH 23.5 L MCHC 33.0 RDW 16.7 H Plt Count 342 Seg Neutrophils % 63.8 Sodium 141.3 Potassium 3.4 L Chloride 106 Carbon Dioxide 29 Anion Gap 6 BUN 13 Creatinine 0.89 Est GFR ( Amer) > 60 Glucose 92 Calcium 8.5 Magnesium 1.3 L Total Bilirubin 1.2 AST 52 Alkaline Phosphatase 62 Total Protein 5.2 L Albumin 2.6 L Urine Color [place] Urine Appearance CLEAR Urine pH 5.0 Ur Specific [place] 1.016 Urine Protein NEGATIVE Urine Glucose (UA) NEGATIVE Urine Ketones NEGATIVE Urine Blood NEGATIVE Urine RBC (Auto) 1 10/05/19 21:20 Blood Blood Culture (PCR) - Final Staphylococcus Species Acinetobacter Baumannii 10/05/19 21:35 Blood Blood Culture (PCR) - Final Staphylococcus Species 10/05/19 10/05/19 10/05/19 15:22 15:22 17:48 Creatine Kinase 1191 H 1158 H CK-MB (CK-2) 14.00 H Troponin I 0.100 NT-Pro-B Natriuret Pep 10/05/19 10/06/19 10/06/19 17:48 05:49 05:49 Creatine Kinase 659 H CK-MB (CK-2) Troponin I 0.100 NT-Pro-B Natriuret Pep 2990 H 2450 H 10/07/19 10/08/19 07:09 05:03 Creatine Kinase 247 H 171 H CK-MB (CK-2) Troponin I NT-Pro-B Natriuret Pep Impressions: Head CT 10/05/19 14:26 IMPRESSION: Mild involutional changes. Intracranial atherosclerosis. No acute intracranial imaging findings. EVIDENCE OF ACUTE STROKE: NO. Cervical Spine CT 10/05/19 14:28 IMPRESSION: Cervical kyphosis. Extensive degenerative disc disease and spondylosis. Multiple laminectomies. No acute finding. Elbow X-Ray 10/05/19 20:54 IMPRESSION: No fracture. Chest X-Ray 10/07/19 00:00 IMPRESSION: Similar right basilar scarring -subsegmental atelectasis. No acute consolidation or pleural effusion. Assessment and Plan - Diagnosis (1) Rhabdomyolysis Qualifiers: Rhabdomyolysis type: traumatic Encounter type: initial encounter Qualified Code(s): T79.6XXA - Traumatic ischemia of muscle, initial encounter Is this a current diagnosis for this admission?: Yes Plan: 10/05/2019 The patient fell and lay on the floor for many hours. His creatinine kinase is elevated. This along with dehydration are likely the cause of the acute kidney failure with acute tubular necrosis. We will give IV fluids and monitor intake and output. We will check serial labs to monitor renal function. We need to be mindful of his history of heart failure when giving IV fluids. 10/05/2019 Creatinine kinase is down to 659. We will continue very gentle IV fluids. 10/07/2019 Creatinine kinase is down to 247. It should normalize within the next day or 2. Bilirubin is now normal. Rhabdomyolysis is basically resolved. 10/08/2019 Creatinine kinase is 171 but the upper limit of normal at 170. Rhabdo is resolved. (2) Acute kidney injury (JUDY) with acute tubular necrosis (ATN) Is this a current diagnosis for this admission?: Yes Plan: 10/05/2019 Due to a combination of dehydration and rhabdomyolysis. The patient is also on lisinopril but I believe he missed the dose while he was stuck on the floor. Will give IV fluids being mindful of his history of heart failure. We will monitor renal function closely. I have held his daily Lasix for tonight. 10/06/2019 Serum creatinine is down from 1.53 into the normal range at 1.18. Continue gentle fluids as above and monitor renal function. 10/07/2019 Renal function normal. JUDY resolved. (3) Laceration of left forearm without complication Qualifiers: Encounter type: subsequent encounter Qualified Code(s): S51.812D - Laceration without foreign body of left forearm, subsequent encounter Is this a current diagnosis for this admission?: Yes Plan: 10/05/2019 The patient's arm will be sutured in the emergency department. He will be on ceftriaxone. The big risk is his extremely fragile skin. If the wound dehiscence then I will clean it and we will laying the skin flap down as best as possible. Approximate the edges as closely as possible. There will certainly be exposed space. We will use Xeroform through the weekend and possibly get collagen dressings with a wound care evaluation. I have added a multivitamin and zinc to help with his healing. 10/06/2019 We will utilize Xeroform dressings through the weekend. Will consult wound care on Tuesday. The patient will benefit from collagen dressings with silver 10/07/2019 We will change to Adaptic dressing. I will also apply Aquaphor to his skin as this will help with the dryness and fragile nature. I will ask the wound center to evaluate on Tuesday in anticipation of outpatient wound care appointment. 10/08/2019 Have asked the wound care center to come evaluate patient's wound. He might be a candidate for outpatient wound care visits. (4) Chronic obstructive pulmonary disease Qualifiers: COPD type: unspecified COPD Qualified Code(s): J44.9 - Chronic obstructive pulmonary disease, unspecified Is this a current diagnosis for this admission?: Yes Plan: I will initially utilize nebulizer treatments. The patient will try to get back to his baseline 2 L to 3 L nasal cannula. I will likely follow him over to his own inhaler regimen or substitute Trelegy while he is in the hospital. No steroids at this point. 10/06/2019 Tomorrow will order his Trelegy and return scheduled nebulizers to as needed. 10/07/2019 Trelegy restarted today. Decrease scheduled nebulizer treatments to every 12 hours. Attempt to taper oxygen back to the 2-1/2 L that he uses at home 10/08/2019 Stable. Consider changing nebulizers to as needed with daily Trelegy inhaler therapy (5) Anemia Qualifiers: Anemia type: iron deficiency Iron deficiency anemia type: inadequate dietary iron intake Qualified Code(s): D50.8 - Other iron deficiency anemias Is this a current diagnosis for this admission?: Yes Plan: 10/05/2019 The patient reports that his primary care was working up his anemia. Evidently he was to be referred to hematology. I have ordered anemia work-up in the morning. He will be on a multivitamin and iron supplement as well as vitamin C. 10/06/2019 Laboratory studies confirm iron deficiency anemia. My guess is that his oral intake is poor at home. He has been started on oral iron but I have ordered a dose of iron sucrose. We will continue to monitor hemoglobin. 10/07/2019 Hemoglobin was 9 yesterday. It is 9.2 today. Anemia is improving. He received IV iron yesterday. Today I will increase oral iron supplement to twice a day. 10/08/2019 Spoke to patient's daughter. He has a terrible diet. His favorite food is Milk Duds. She asked about Meals on Wheels. With a better diet his hemoglobin is starting to improve. (6) Chronic diastolic heart failure Is this a current diagnosis for this admission?: Yes Plan: 10/05/2019 Echocardiogram in April 2018 revealed a normal ejection fraction with grade 1/4 diastolic failure. We will scrutinize his IV fluids so as not to create volume overload. 10/06/2019 The brain natruretic peptide went from 2990 down to 2415. He is tolerating gentle fluids. Consider resuming his furosemide tomorrow. 10/07/2019 Stable. I will resume furosemide but at the decreased dose of 20 mg daily. 10/08/2019 Increase furosemide back to 40 mg daily (7) Chronic neck and back pain Is this a current diagnosis for this admission?: Yes Plan: 10/05/2019 Continue opiate therapy since this is chronic and I do not want to cause withdrawal. 10/06/2019 Continue pain management 10/07/2019 We will need to scrutinize pain management regimen. Increased pain medications could contribute to instability and falls. (8) Essential hypertension Is this a current diagnosis for this admission?: Yes Plan: 10/05/2019 The patient is on metoprolol, lisinopril and furosemide. I am holding the furosemide today due to the dehydration. I will likely utilize all 3 medications tomorrow but this will be based on his volume status, pulse and blood pressure. 10/06/2019 Blood pressures have been borderline to low. They seem to be improved today. We will continue to monitor closely and add medications judiciously. 10/07/2019 Blood pressure much better this morning. Continue to monitor with vital signs. 10/08/2019 Blood pressure were elevated. It seems that after the Espitia catheter was placed to relieve the urinary obstruction the patient's numbers improved (9) Pulmonary hypertension Is this a current diagnosis for this admission?: Yes Plan: 10/05/2019 Identified with the echocardiogram in April 2018. Continue current medication regimen. This may be contributing somewhat to his shortness of breath. 10/06/2019 Chronic and stable 10/07/2019 Chronic and stable. No specific intervention other than current medication regimen and treating COPD. (10) Lactic acidemia Is this a current diagnosis for this admission?: Yes Plan: 10/05/2019 The patient received 2 L of fluid in the emergency department and his lactic acid normalized. 10/06/2019 Resolved 10/07/2019 No further need to monitor lactic acid levels. (11) Hyperbilirubinemia Is this a current diagnosis for this admission?: Yes Plan: 10/05/2019 Likely due to a constellation of events including the dehydration, rhabdo and kidney injury. His bilirubin in fact was elevated when I admitted the patient in April. While we are monitoring his renal function we will also monitor liver function with serial labs. His prothrombin time is slightly elevated. This could also be a reflection of his nutritional status. We will continue to monitor closely. 10/06/2019 Improving. Bilirubin is down to 1.8 from 2.3. 10/07/2019 Resolved (12) Dehydration Is this a current diagnosis for this admission?: Yes Plan: 10/05/2019 Judicious use of IV fluids and the patient's baseline medications. Serial laboratory studies are ordered. 10/06/2019 BUN is down to 26 from 32. Continue gentle fluids. I encouraged the patient to drink more water. 10/07/2019 Resolved (13) Leukocytosis Qualifiers: Leukocytosis type: unspecified Qualified Code(s): D72.829 - Elevated white blood cell count, unspecified Is this a current diagnosis for this admission?: Yes Plan: 10/05/2019 This is most likely a physiologic response to the recent events and current pathology. He will be on ceftriaxone for the laceration. There is no suggestion of pneumonia. Blood cultures and urine culture have been ordered. 10/06/2019 White blood cell count is now normal. 10/07/2019 Resolved
[2019-10-08] MEDS ORDERED: POTASSIUM CHLORIDE 10 MEQ TABLET.ER PO ONE (16:00)
[2019-10-08] MEDS ORDERED: HYDROXYZINE HCL 10 MG TABLET PO PRN (16:17)
[2019-10-08] MEDS ORDERED: DIPHENHYDRAMINE HCL 50 MG/ML VIAL IV PRN (16:23)
[2019-10-08] MEDS: TAMSULOSIN HCL 0.4 MG CAP.SR.24H PO SCH (17:03)
[2019-10-08] MEDS: MAGNESIUM OXIDE 400 MG TABLET PO SCH (18:17)
[2019-10-08] MEDS: ATORVASTATIN CALCIUM 80 MG TABLET PO SCH (21:22)
[2019-10-08] MEDS: TEMAZEPAM 7.5 MG CAPSULE PO SCH (21:22)
[2019-10-09] MEDS: HEPARIN SOD (PORCINE) 5,000 UNIT/ML 1 ML VIAL SUBCUT SCH ×3 (05:08→22:04)
[2019-10-09] MEDS: VANCOMYCIN HCL 1,000 MG in DEXTROSE 5%-WATER 250 ML IV SCH ×2 (05:08→18:39)
[2019-10-09 06:30] LABS: VANCOMYCIN,TROUGH 18.9 ug/mL (5.0-20.0)
[2019-10-09] MEDS: IPRATROPIUM/ALBUTEROL 0.5-2.5 MG/3 ML AMPUL NEB SCH ×2 (09:31→20:12)
[2019-10-09] MEDS: BUDESONIDE NEB 0.5 MG/2 ML AMPUL NEB SCH ×2 (09:31→20:12)
[2019-10-09] MEDS ORDERED: (PENDING PHARMACY ID) (Albuterol Sulfate 2 PUFF) IH PRN (11:03)
[2019-10-09] MEDS ORDERED: ZOLPIDEM TARTRATE 5 MG TABLET PO PRN (11:03)
[2019-10-09] MEDS ORDERED: CYCLOBENZAPRINE HCL 10 MG TABLET PO PRN (11:03)
--- NOTE | 2019-10-09 11:03 | PDOC PROGRESS REPORT ---
Subjective Progress Note for:: 10/09/19 Subjective:: 69 year old male to this provider. He has a history of congestive heart failure, coronary artery disease, myocardial infarction and hypertension. He also has chronic obstructive pulmonary disease on home oxygen and respiratory failure. In addition he bruises easily and is anemic. There is a distant history of seizures. The patient reports that he has been feeling weak since May. He has not had alcohol or tobacco since 2012. His home oxygen is usually 2 to 3 L. With his weakness he finally fell. He sustained a large deep skin tear/laceration on the left elbow. In addition he cannot mobilize and was stuck on the floor for a day. He was able to eventually reach the phone and call for help. During that time he had minimal intake. It is also likely that he missed some doses of medication. Currently he looks exhausted. He is pale. He has the skin tear/laceration on the left arm the leading edge of the skin is beginning to curl and retract. Laboratory studies revealed an acute kidney injury as well as liver dysfunction, and elevated creatinine kinase consistent with rhabdomyolysis and his anemia. He will be admitted to the [facility]. He needs fluids but we need to be mindful of his history of congestive heart failure. Although his liver dysfunction and serum creatinine qualify for sepsis I do not believe that this patient is septic. The emergency department physician is going to suture his left arm and he will be on ceftriaxone. 10/09/2019-comfortably in the bed communicating well. Waiting for physical therapy and Occupational Therapy evaluation. He has wounds on the arms getting Xeroform dressings. Cultures are positive for Acinetobacter pansensitive. Presently on IV cefepime and vancomycin. Plan is to continue the antibiotic therapy at this time. His [employer] contact isolation. Reason For Visit: ACUTE KIDNEY INJURY, RHABDOMYOLYSIS, LACERATION Physical Exam Vital Signs: Temp Pulse Resp BP Pulse Ox 98.5 F 88 17 124/54 L 92 10/09/19 07:21 10/09/19 09:31 10/09/19 09:31 10/09/19 07:21 10/09/19 09:31 Intake & Output 10/08/19 10/09/19 10/10/19 06:59 06:59 06:59 Intake Total 950 1380 Output Total 300 2975 Balance 650 -1595 Weight 83.9 kg 83.9 kg General appearance: PRESENT: no acute distress, cooperative, well-developed Head exam: PRESENT: atraumatic Eye exam: PRESENT: PERRLA Mouth exam: PRESENT: dry mucosa Teeth exam: PRESENT: poor dentation Neck exam: ABSENT: carotid bruit, JVD, lymphadenopathy, thyromegaly Respiratory exam: PRESENT: decreased breath sounds Cardiovascular exam: PRESENT: RRR. ABSENT: diastolic murmur, rubs, systolic murmur GI/Abdominal exam: PRESENT: normal bowel sounds, soft. ABSENT: distended, guarding, mass, organolmegaly, rebound, tenderness Rectal exam: PRESENT: deferred Neurological exam: PRESENT: alert, awake, oriented to person, oriented to place, oriented to time, oriented to situation, CN II-XII grossly intact. ABSENT: motor sensory deficit Skin exam: PRESENT: other - Dry skin tears are present. Large deep skin lacer ation/skin tear over the left elbow with subcutaneous tissue exposed. Results Laboratory Results: 10/08/19 05:03 10/08/19 05:03 10/05/19 21:35 Blood Blood Culture (PCR) - Final Staphylococcus Species 10/05/19 21:35 Blood Blood Culture - Final Staphylococcus Epidermidis 10/05/19 21:20 Blood Blood Culture (PCR) - Final Staphylococcus Species Acinetobacter Baumannii 10/05/19 10/05/19 10/05/19 15:22 15:22 17:48 Creatine Kinase 1191 H 1158 H CK-MB (CK-2) 14.00 H Troponin I 0.100 NT-Pro-B Natriuret Pep 10/05/19 10/06/19 10/06/19 17:48 05:49 05:49 Creatine Kinase 659 H CK-MB (CK-2) Troponin I 0.100 NT-Pro-B Natriuret Pep 2990 H 2450 H 10/07/19 10/08/19 07:09 05:03 Creatine Kinase 247 H 171 H CK-MB (CK-2) Troponin I NT-Pro-B Natriuret Pep Impressions: Head CT 10/05/19 14:26 IMPRESSION: Mild involutional changes. Intracranial atherosclerosis. No acute intracranial imaging findings. EVIDENCE OF ACUTE STROKE: NO. Cervical Spine CT 10/05/19 14:28 IMPRESSION: Cervical kyphosis. Extensive degenerative disc disease and spondylosis. Multiple laminectomies. No acute finding. Elbow X-Ray 10/05/19 20:54 IMPRESSION: No fracture. Chest X-Ray 10/07/19 00:00 IMPRESSION: Similar right basilar scarring -subsegmental atelectasis. No acute consolidation or pleural effusion. Assessment and Plan - Diagnosis (1) Rhabdomyolysis Qualifiers: Rhabdomyolysis type: traumatic Encounter type: initial encounter Qualified Code(s): T79.6XXA - Traumatic ischemia of muscle, initial encounter Is this a current diagnosis for this admission?: Yes Plan: 10/05/2019 The patient fell and lay on the floor for many hours. His creatinine kinase is elevated. This along with dehydration are likely the cause of the acute kidney failure with acute tubular necrosis. We will give IV fluids and monitor intake and output. We will check serial labs to monitor renal function. We need to be mindful of his history of heart failure when giving IV fluids. 10/05/2019 Creatinine kinase is down to 659. We will continue very gentle IV fluids. 10/07/2019 Creatinine kinase is down to 247. It should normalize within the next day or 2. Bilirubin is now normal. Rhabdomyolysis is basically resolved. 10/08/2019 Creatinine kinase is 171 but the upper limit of normal at 170. Rhabdo is resolved. (2) Acute kidney injury (JUDY) with acute tubular necrosis (ATN) Is this a current diagnosis for this admission?: Yes Plan: 10/05/2019 Due to a combination of dehydration and rhabdomyolysis. The patient is also on lisinopril but I believe he missed the dose while he was stuck on the floor. Wi ll give IV fluids being mindful of his history of heart failure. We will monitor renal function closely. I have held his daily Lasix for tonight. 10/06/2019 Serum creatinine is down from 1.53 into the normal range at 1.18. Continue gentle fluids as above and monitor renal function. 10/07/2019 Renal function normal. JUDY resolved. (3) Laceration of elbow, left, complicated Is this a current diagnosis for this admission?: Yes Plan: 10/05/2019 The patient's arm will be sutured in the emergency department. He will be on ceftriaxone. The big risk is his extremely fragile skin. If the wound dehiscence then I will clean it and we will laying the skin flap down as best as possible. Approximate the edges as closely as possible. There will certainly be exposed space. We will use Xeroform through the weekend and possibly get collagen dressings with a wound care evaluation. I have added a multivitamin and zinc to help with his healing. 10/06/2019 We will utilize Xeroform dressings through the weekend. Will consult wound care on Tuesday. The patient will benefit from collagen dressings with silver 10/07/2019 We will change to Adaptic dressing. I will also apply Aquaphor to his skin as this will help with the dryness and fragile nature. I will ask the wound center to evaluate on Tuesday in anticipation of outpatient wound care appointment. 10/08/2019 Have asked the wound care center to come evaluate patient's wound. He might be a candidate for outpatient wound care visits. (4) Chronic obstructive pulmonary disease Qualifiers: COPD type: unspecified COPD Qualified Code(s): J44.9 - Chronic obstructive pulmonary disease, unspecified Is this a current diagnosis for this admission?: Yes Plan: I will initially utilize nebulizer treatments. The patient will try to get back to his baseline 2 L to 3 L nasal cannula. I will likely follow him over to his own inhaler regimen or substitute Trelegy while he is in the hospital. No steroids at this point. 10/06/2019 Tomorrow will order his Trelegy and return scheduled nebulizers to as needed. 10/07/2019 Trelegy restarted today. Decrease scheduled nebulizer treatments to every 12 hours. Attempt to taper oxygen back to the 2-1/2 L that he uses at home 10/08/2019 Stable. Consider changing nebulizers to as needed with daily Trelegy inhaler therapy (5) Anemia Qualifiers: Anemia type: iron deficiency Iron deficiency anemia type: inadequate dietary iron intake Qualified Code(s): D50.8 - Other iron deficiency anemias Is this a current diagnosis for this admission?: Yes Plan: 10/05/2019 The patient reports that his primary care was working up his anemia. Evidently he was to be referred to hematology. I have ordered anemia work-up in the morning. He will be on a multivitamin and iron supplement as well as vitamin C. 10/06/2019 Laboratory studies confirm iron deficiency anemia. My guess is that his oral intake is poor at home. He has been started on oral iron but I have ordered a dose of iron sucrose. We will continue to monitor hemoglobin. 10/07/2019 Hemoglobin was 9 yesterday. It is 9.2 today. Anemia is improving. He received IV iron yesterday. Today I will increase oral iron supplement to twice a day. 10/08/2019 Spoke to patient's daughter. He has a terrible diet. His favorite food is Milk Duds. She asked about Meals on Wheels. With a better diet his hemoglobin is starting to improve. (6) Chronic diastolic heart failure Is this a current diagnosis for this admission?: No Plan: 10/05/2019 Echocardiogram in April 2018 revealed a normal ejection fraction with grade 1/4 diastolic failure. We will scrutinize his IV fluids so as not to create volume overload. 10/06/2019 The brain natruretic peptide went from 2990 down to 2415. He is tolerating gentle fluids. Consider resuming his furosemide tomorrow. 10/07/2019 Stable. I will resume furosemide but at the decreased dose of 20 mg daily. 10/08/2019 Increase furosemide back to 40 mg daily (7) Chronic neck and back pain Is this a current diagnosis for this admission?: No Plan: 10/05/2019 Continue opiate therapy since this is chronic and I do not want to cause withdrawal. 10/06/2019 Continue pain management 10/07/2019 We will need to scrutinize pain management regimen. Increased pain medications could contribute to instability and falls. (8) Essential hypertension Is this a current diagnosis for this admission?: No Plan: 10/05/2019 The patient is on metoprolol, lisinopril and furosemide. I am holding the furosemide today due to the dehydration. I will likely utilize all 3 medications tomorrow but this will be based on his volume status, pulse and blood pressure. 10/06/2019 Blood pressures have been borderline to low. They seem to be improved today. We will continue to monitor closely and add medications judiciously. 10/07/2019 Blood pressure much better this morning. Continue to monitor with vital signs. 10/08/2019 Blood pressure were elevated. It seems that after the Espitia catheter was placed to relieve the urinary obstruction the patient's numbers improved 10/09/2019-blood pressure today is 112/60. Stable. (9) Pulmonary hypertension Is this a current diagnosis for this admission?: No Plan: 10/05/2019 Identified with the echocardiogram in April 2018. Continue current medication regimen. This may be contributing somewhat to his shortness of breath. 10/06/2019 Chronic and stable 10/07/2019 Chronic and stable. No specific intervention other than current medication regimen and treating COPD. (10) Lactic acidemia Is this a current diagnosis for this admission?: Yes Plan: 10/05/2019 The patient received 2 L of fluid in the emergency department and his lactic acid normalized. 10/06/2019 Resolved 10/07/2019 No further need to monitor lactic acid levels. (11) Hyperbilirubinemia Is this a current diagnosis for this admission?: Yes Plan: 10/05/2019 Likely due to a constellation of events including the dehydration, rhabdo and kidney injury. His bilirubin in fact was elevated when I admitted the patient in April. While we are monitoring his renal function we will also monitor liver function with serial labs. His prothrombin time is slightly elevated. This could also be a reflection of his nutritional status. We will continue to monitor closely. 10/06/2019 Improving. Bilirubin is down to 1.8 from 2.3. 10/07/2019 Resolved (12) Dehydration Is this a current diagnosis for this admission?: Yes Plan: 10/05/2019 Judicious use of IV fluids and the patient's baseline medications. Serial laboratory studies are ordered. 10/06/2019 BUN is down to 26 from 32. Continue gentle fluids. I encouraged the patient to drink more water. 10/07/2019 Resolved (13) Leukocytosis Qualifiers: Leukocytosis type: unspecified Qualified Code(s): D72.829 - Elevated white blood cell count, unspecified Is this a current diagnosis for this admission?: Yes Plan: 10/05/2019 This is most likely a physiologic response to the recent events and current pathology. He will be on ceftriaxone for the laceration. There is no suggestion of pneumonia. Blood cultures and urine culture have been ordered. 10/06/2019 White blood cell count is now normal. 10/07/2019 Resolved (14) Positive blood culture Is this a current diagnosis for this admission?: Yes Plan: 10/09/2019-blood cultures were positive for Acinetobacter and a Staphylococcus coagulase-negative. Presently on IV cefepime and vancomycin. Plan is to cont inue present antibiotic therapy.
[2019-10-09] MEDS ORDERED: ALBUTEROL SULFATE HFA (90 MCG/PUFF) 200 PUFF/8.5 GM MDI IH PRN (11:55)
[2019-10-09] MEDS: MAGNESIUM OXIDE 400 MG TABLET PO SCH ×3 (12:04→18:39)
[2019-10-09] MEDS: ASCORBIC ACID 500 MG TABLET PO SCH ×2 (12:04→18:38)
[2019-10-09] MEDS: CLOPIDOGREL BISULFATE 75 MG TABLET PO SCH (12:04)
[2019-10-09] MEDS: GABAPENTIN 300 MG CAPSULE PO SCH ×2 (12:04→22:04)
[2019-10-09] MEDS: ASPIRIN 81 MG TABLET, ENT COATED PO SCH (12:05)
[2019-10-09] MEDS: FERROUS SULFATE 325 MG TABLET PO SCH ×2 (12:05→18:38)
[2019-10-09] MEDS: METOPROLOL SUCCINATE 25 MG TAB.SR.24H PO SCH (12:05)
[2019-10-09] MEDS: LISINOPRIL 10 MG TABLET PO SCH (12:05)
[2019-10-09] MEDS: FAMOTIDINE 20 MG TABLET PO SCH ×2 (12:06→22:05)
[2019-10-09] MEDS: MULTIVITAMIN TABLET PO SCH (12:06)
[2019-10-09] MEDS: POTASSIUM CHLORIDE 10 MEQ TABLET.ER PO SCH ×2 (12:06→18:39)
[2019-10-09] MEDS: FUROSEMIDE 20 MG TABLET PO SCH (12:06)
[2019-10-09] MEDS: OXYCODONE HCL IR 5 MG TABLET PO PRN ×2 (12:07→16:18)
[2019-10-09] MEDS: CEFEPIME 1 GM/D5W RTU 1 GM/50 ML RTUPB IV SCH ×2 (12:08→22:05)
[2019-10-09] MEDS: PANTOT AC/MIN OIL/PET HY-PHL OINT 50 GM TOP SCH ×2 (16:14→18:47)
[2019-10-09] MEDS: FLUTICASONE/UMECLIDIN/VILANTER 100-62.5-25 MCG/DOSE IH SCH (16:17)
[2019-10-09] MEDS: ZINC SULFATE 220 MG CAPSULE PO SCH (16:18)
[2019-10-09] MEDS: TAMSULOSIN HCL 0.4 MG CAP.SR.24H PO SCH (18:39)
[2019-10-09] MEDS: TEMAZEPAM 7.5 MG CAPSULE PO SCH (22:04)
[2019-10-09] MEDS: ATORVASTATIN CALCIUM 80 MG TABLET PO SCH (22:05)
[2019-10-10] MEDS: HEPARIN SOD (PORCINE) 5,000 UNIT/ML 1 ML VIAL SUBCUT SCH ×3 (05:04→21:52)
[2019-10-10] MEDS: VANCOMYCIN HCL 1,000 MG in DEXTROSE 5%-WATER 250 ML IV SCH ×2 (05:04→17:37)
[2019-10-10 05:46] LABS: HEMATOCRIT 28.7 % (37.9-51.0); HEMOGLOBIN 9.5 g/dL (13.5-17.0); MEAN CORPUSCULAR HEMOGLOBIN 24.1 pg (27.0-33.4); MEAN CORPUSCULAR HGB CONC 33.2 g/dL (32.0-36.0); MEAN CORPUSCULAR VOLUME 73 fl (80-97); PLATELET COUNT 307 10^3/uL (150-450); RED BLOOD COUNT 3.96 10^6/uL (4.35-5.55); RED CELL DISTRIBUTION WIDTH 17.6 % (11.5-14.0); WHITE BLOOD COUNT 7.4 10^3/uL (4.0-10.5)
[2019-10-10 06:09] LABS: ALBUMIN 2.6 g/dL (3.5-5.0); ALKALINE PHOSPHATASE 61 U/L (38-126); ANION GAP 5 (5-19); ASPARTATE AMINO TRANSFERASE 46 U/L (17-59); BILIRUBIN,DIRECT 0.3 mg/dL (0.0-0.4); BLOOD UREA NITROGEN 10 mg/dL (7-20); CALCIUM 8.8 mg/dL (8.4-10.2); CARBON DIOXIDE 32 mmol/L (22-30); CHLORIDE 102 mmol/L (98-107); GLUCOSE 113 mg/dL (75-110); POTASSIUM 3.7 mmol/L (3.6-5.0); TOTAL PROTEIN 5.1 g/dL (6.3-8.2)
[2019-10-10 06:34] LABS: ABSOLUTE LYMPHOCYTES# (MANUAL) 0.7 10^3/uL (0.5-4.7); ABSOLUTE MONOCYTES # (MANUAL) 0.1 10^3/uL (0.1-1.4); BASOPHILS % (MANUAL) 1 % (0-2); EOSINOPHILS % (MANUAL) 6 % (0-6); LYMPHOCYTES % (MANUAL) 9 % (13-45); MONOCYTES % (MANUAL) 1 % (3-13); SEGMENTED NEUTROPHILS % (MAN) 82 % (42-78); TOTAL CELLS COUNTED 100
[2019-10-10 06:38] LABS: ANISOCYTOSIS 1+; HYPOCHROMASIA SLIGHT; OVALOCYTES 2+; POIKILOCYTOSIS 1+; TOXIC GRANULATION SLIGHT
[2019-10-10 06:39] LABS: PLATELET COMMENT ADEQUATE
[2019-10-10] MEDS: IPRATROPIUM/ALBUTEROL 0.5-2.5 MG/3 ML AMPUL NEB SCH ×2 (08:46→20:13)
[2019-10-10] MEDS: BUDESONIDE NEB 0.5 MG/2 ML AMPUL NEB SCH ×2 (08:46→20:13)
--- NOTE | 2019-10-10 10:18 | PDOC PROGRESS REPORT ---
Subjective Progress Note for:: 10/10/19 Subjective:: 69 year old male to this provider. He has a history of congestive heart failure, coronary artery disease, myocardial infarction and hypertension. He also has chronic obstructive pulmonary disease on home oxygen and respiratory failure. In addition he bruises easily and is anemic. There is a distant history of seizures. The patient reports that he has been feeling weak since May. He has not had alcohol or tobacco since 2012. His home oxygen is usually 2 to 3 L. With his weakness he finally fell. He sustained a large deep skin tear/laceration on the left elbow. In addition he cannot mobilize and was stuck on the floor for a day. He was able to eventually reach the phone and call for help. During that time he had minimal intake. It is also likely that he missed some doses of medication. Currently he looks exhausted. He is pale. He has the skin tear/laceration on the left arm the leading edge of the skin is beginning to curl and retract. Laboratory studies revealed an acute kidney injury as well as liver dysfunction, and elevated creatinine kinase consistent with rhabdomyolysis and his anemia. He will be admitted to the [facility]. He needs fluids but we need to be mindful of his history of congestive heart failure. Although his liver dysfunction and serum creatinine qualify for sepsis I do not believe that this patient is septic. The emergency department physician is going to suture his left arm and he will be on ceftriaxone. 10/09/2019-comfortably in the bed communicating well. Waiting for physical therapy and Occupational Therapy evaluation. He has wounds on the arms getting Xeroform dressings. Cultures are positive for Acinetobacter pansensitive. Presently on IV cefepime and vancomycin. Plan is to continue the antibiotic therapy at this time. His [employer] contact isolation. 10/10/2019- 9-year-old male admitted with acute acute kidney injury which was resolved rhabdomyolysis which was resolved blood cultures are positive for Staphylococcus coagulase-negative and Acinetobacter. Patient is presently on IV cefepime and vancomycin consultation with ID is requested. Needed will arrange for a DANIA. Patient is afebrile WBC count is 7400. Plan is to discharge him to SNF physical therapy is working with the patient. Reason For Visit: ACUTE KIDNEY INJURY, RHABDOMYOLYSIS, LACERATION Physical Exam Vital Signs: Temp Pulse Resp BP Pulse Ox 97.8 F 83 18 99/47 L 93 10/10/19 07:48 10/10/19 08:48 10/10/19 08:48 10/10/19 07:48 10/10/19 08:48 Intake & Output 10/09/19 10/10/19 10/11/19 06:59 06:59 06:59 Intake Total 1630 1090 250 Output Total 2975 1500 Balance -1345 -410 250 Weight 83.9 kg 81.7 kg General appearance: PRESENT: no acute distress Head exam: PRESENT: atraumatic Eye exam: PRESENT: PERRLA Mouth exam: PRESENT: moist, tongue midline Teeth exam: PRESENT: poor dentation Neck exam: ABSENT: carotid bruit, JVD, lymphadenopathy, thyromegaly Respiratory exam: PRESENT: decreased breath sounds Cardiovascular exam: PRESENT: RRR. ABSENT: diastolic murmur, rubs, systolic murmur GI/Abdominal exam: PRESENT: normal bowel sounds, soft. ABSENT: distended, guarding, mass, organolmegaly, rebound, tenderness Rectal exam: PRESENT: deferred Extremities exam: PRESENT: full ROM. ABSENT: calf tenderness, clubbing, pedal edema Neurological exam: PRESENT: alert, awake, oriented to person, oriented to place, oriented to time, oriented to situation, CN II-XII grossly intact. ABSENT: motor sensory deficit Psychiatric exam: PRESENT: appropriate affect, normal mood. ABSENT: homicidal ideation, suicidal ideation Results Laboratory Results: 10/10/19 05:09 10/10/19 05:09 10/10/19 10/10/19 05:09 05:09 WBC 7.4 RBC 3.96 L Hgb 9.5 L Hct 28.7 L MCV 73 L MCH 24.1 L MCHC 33.2 RDW 17.6 H Plt Count 307 Seg Neutrophils % Not Reportable Sodium 138.9 Potassium 3.7 Chloride 102 Carbon Dioxide 32 H Anion Gap 5 BUN 10 Creatinine 0.93 Est GFR ( Amer) > 60 Glucose 113 H Calcium 8.8 Magnesium 1.6 Total Bilirubin 1.0 AST 46 Alkaline Phosphatase 61 Total Protein 5.1 L Albumin 2.6 L 10/05/19 21:20 Blood Blood Culture (PCR) - Final Staphylococcus Species Acinetobacter Baumannii 10/05/19 21:35 Blood Blood Culture (PCR) - Final Staphylococcus Species 10/05/19 21:35 Blood Blood Culture - Final Staphylococcus Epidermidis 10/05/19 10/05/19 10/05/19 15:22 15:22 17:48 Creatine Kinase 1191 H 1158 H CK-MB (CK-2) 14.00 H Troponin I 0.100 NT-Pro-B Natriuret Pep 10/05/19 10/06/19 10/06/19 17:48 05:49 05:49 Creatine Kinase 659 H CK-MB (CK-2) Troponin I 0.100 NT-Pro-B Natriuret Pep 2990 H 2450 H 10/07/19 10/08/19 07:09 05:03 Creatine Kinase 247 H 171 H CK-MB (CK-2) Troponin I NT-Pro-B Natriuret Pep Impressions: Head CT 10/05/19 14:26 IMPRESSION: Mild involutional changes. Intracranial atherosclerosis. No acute intracranial imaging findings. EVIDENCE OF ACUTE STROKE: NO. Cervical Spine CT 10/05/19 14:28 IMPRESSION: Cervical kyphosis. Extensive degenerative disc disease and spondylosis. Multiple laminectomies. No acute finding. Elbow X-Ray 10/05/19 20:54 IMPRESSION: No fracture. Chest X-Ray 10/07/19 00:00 IMPRESSION: Similar right basilar scarring -subsegmental atelectasis. No acute consolidation or pleural effusion. Assessment and Plan - Diagnosis (1) Rhabdomyolysis Qualifiers: Rhabdomyolysis type: traumatic Encounter type: initial encounter Qualified Code(s): T79.6XXA - Traumatic ischemia of muscle, initial encounter Is this a current diagnosis for this admission?: Yes Plan: 10/05/2019 The patient fell and lay on the floor for many hours. His creatinine kinase is elevated. This along with dehydration are likely the cause of the acute kidney failure with acute tubular necrosis. We will give IV fluids and monitor intake and output. We will check serial labs to monitor renal function. We need to be mindful of his history of heart failure when giving IV fluids. 10/05/2019 Creatinine kinase is down to 659. We will continue very gentle IV fluids. 10/07/2019 Creatinine kinase is down to 247. It should normalize within the next day or 2. Bilirubin is now normal. Rhabdomyolysis is basically resolved. 10/08/2019 Creatinine kinase is 171 but the upper limit of normal at 170. Rhabdo is resolved. (2) Acute kidney injury (JUDY) with acute tubular necrosis (ATN) Is this a current diagnosis for this admission?: Yes Plan: 10/05/2019 Due to a combination of dehydration and rhabdomyolysis. The patient is also on lisinopril but I believe he missed the dose while he was stuck on the floor. Will give IV fluids being mindful of his history of heart failure. We will monitor renal function closely. I have held his daily Lasix for tonight. 10/06/2019 Serum creatinine is down from 1.53 into the normal range at 1.18. Continue gentle fluids as above and monitor renal function. 10/07/2019 Renal function normal. JUDY resolved. (3) Laceration of elbow, left, complicated Is this a current diagnosis for this admission?: Yes Plan: 10/05/2019 The patient's arm will be sutured in the emergency department. He will be on ceftriaxone. The big risk is his extremely fragile skin. If the wound dehiscence then I will clean it and we will laying the skin flap down as best as possible. Approximate the edges as closely as possible. There will certainly be exposed space. We will use Xeroform through the weekend and possibly get collagen dressings with a wound care evaluation. I have added a multivitamin and zinc to help with his healing. 10/06/2019 We will utilize Xeroform dressings through the . Will consult wound care on Tuesday. The patient will benefit from collagen dressings with silver 10/07/2019 We will change to Adaptic dressing. I will also apply Aquaphor to his skin as this will help with the dryness and fragile nature. I will ask the wound center to evaluate on Tuesday in anticipation of outpatient wound care appointment. 10/08/2019 Have asked the wound care center to come evaluate patient's wound. He might be a candidate for outpatient wound care visits. (4) Chronic obstructive pulmonary disease Qualifiers: COPD type: unspecified COPD Qualified Code(s): J44.9 - Chronic obstructive pulmonary disease, unspecified Is this a current diagnosis for this admission?: Yes Plan: I will initially utilize nebulizer treatments. The patient will try to get back to his baseline 2 L to 3 L nasal cannula. I will likely follow him over to his own inhaler regimen or substitute Trelegy while he is in the hospital. No ster oids at this point. 10/06/2019 Tomorrow will order his Trelegy and return scheduled nebulizers to as needed. 10/07/2019 Trelegy restarted today. Decrease scheduled nebulizer treatments to every 12 hours. Attempt to taper oxygen back to the 2-1/2 L that he uses at home 10/08/2019 Stable. Consider changing nebulizers to as needed with daily Trelegy inhaler therapy (5) Anemia Qualifiers: Anemia type: iron deficiency Iron deficiency anemia type: inadequate dietary iron intake Qualified Code(s): D50.8 - Other iron deficiency anemias Is this a current diagnosis for this admission?: Yes Plan: 10/05/2019 The patient reports that his primary care was working up his anemia. Evidently he was to be referred to hematology. I have ordered anemia work-up in the morning. He will be on a multivitamin and iron supplement as well as vitamin C. 10/06/2019 Laboratory studies confirm iron deficiency anemia. My guess is that his oral intake is poor at home. He has been started on oral iron but I have ordered a dose of iron sucrose. We will continue to monitor hemoglobin. 10/07/2019 Hemoglobin was 9 yesterday. It is 9.2 today. Anemia is improving. He received IV iron yesterday. Today I will increase oral iron supplement to twice a day. 10/08/2019 Spoke to patient's daughter. He has a terrible diet. His favorite food is Milk Duds. She asked about Meals on Wheels. With a better diet his hemoglobin is starting to improve. 10/10/2019-latest hemoglobin is 9.5 stable. (6) Chronic diastolic heart failure Is this a current diagnosis for this admission?: No Plan: 10/05/2019 Echocardiogram in April 2018 revealed a normal ejection fraction with grade 1/4 diastolic failure. We will scrutinize his IV fluids so as not to create volume overload. 10/06/2019 The brain natruretic peptide went from 2990 down to 2415. He is tolerating gentle fluids. Consider resuming his furosemide tomorrow. 10/07/2019 Stable. I will resume furosemide but at the decreased dose of 20 mg daily. 10/08/2019 Increase furosemide back to 40 mg daily 10/10/19-blood pressure today's 100/60. Asymptomatic. Patient is receiving furosemide 40 mg daily. (7) Chronic neck and back pain Is this a current diagnosis for this admission?: No Plan: 10/05/2019 Continue opiate therapy since this is chronic and I do not want to cause wit hdrawal. 10/06/2019 Continue pain management 10/07/2019 We will need to scrutinize pain management regimen. Increased pain medications could contribute to instability and falls. (8) Essential hypertension Is this a current diagnosis for this admission?: No Plan: 10/05/2019 The patient is on metoprolol, lisinopril and furosemide. I am holding the furosemide today due to the dehydration. I will likely utilize all 3 medications tomorrow but this will be based on his volume status, pulse and blood pressure. 10/06/2019 Blood pressures have been borderline to low. They seem to be improved today. We will continue to monitor closely and add medications judiciously. 10/07/2019 Blood pressure much better this morning. Continue to monitor with vital signs. 10/08/2019 Blood pressure were elevated. It seems that after the Espitia catheter was placed to relieve the urinary obstruction the patient's numbers improved 10/09/2019-blood pressure today is 112/60. Stable. 1720-blood pressure today is 99/50. Asymptomatic comfortably in the bed communicating well. (9) Pulmonary hypertension Is this a current diagnosis for this admission?: No Plan: 10/05/2019 Identified with the echocardiogram in April 2018. Continue current medication regimen. This may be contributing somewhat to his shortness of breath. 10/06/2019 Chronic and stable 10/07/2019 Chronic and stable. No specific intervention other than current medication regimen and treating COPD. (10) Lactic acidemia Is this a current diagnosis for this admission?: Yes Plan: 10/05/2019 The patient received 2 L of fluid in the emergency department and his lactic acid normalized. 10/06/2019 Resolved 10/07/2019 No further need to monitor lactic acid levels. (11) Hyperbilirubinemia Is this a current diagnosis for this admission?: Yes Plan: 10/05/2019 Likely due to a constellation of events including the dehydration, rhabdo and kidney injury. His bilirubin in fact was elevated when I admitted the patient in April. While we are monitoring his renal function we will also monitor liver function with serial labs. His prothrombin time is slightly elevated. This could also be a reflection of his nutritional status. We will continue to monitor closely. 10/06/2019 Improving. Bilirubin is down to 1.8 from 2.3. 10/07/2019 Resolved (12) Dehydration Is this a current diagnosis for this admission?: Yes Plan: 10/05/2019 Judicious use of IV fluids and the patient's baseline medications. Serial labor atory studies are ordered. 10/06/2019 BUN is down to 26 from 32. Continue gentle fluids. I encouraged the patient to drink more water. 10/07/2019 Resolved (13) Leukocytosis Qualifiers: Leukocytosis type: unspecified Qualified Code(s): D72.829 - Elevated white blood cell count, unspecified Is this a current diagnosis for this admission?: Yes Plan: 10/05/2019 This is most likely a physiologic response to the recent events and current pathology. He will be on ceftriaxone for the laceration. There is no suggestion of pneumonia. Blood cultures and urine culture have been ordered. 10/06/2019 White blood cell count is now normal. 10/07/2019 Resolved (14) Positive blood culture Is this a current diagnosis for this admission?: Yes Plan: 10/09/2019-blood cultures were positive for Acinetobacter and a Staphylococcus coagulase-negative. Presently on IV cefepime and vancomycin. Plan is to continue present antibiotic therapy. 10/10/19-blood cultures growing Staphylococcus species probably contamination and Acinetobacter. Patient is receiving IV cefepime and vancomycin, ID consult is requested.
[2019-10-10] MEDS: CLOPIDOGREL BISULFATE 75 MG TABLET PO SCH (11:25)
[2019-10-10] MEDS: ASPIRIN 81 MG TABLET, ENT COATED PO SCH (11:25)
[2019-10-10] MEDS: POTASSIUM CHLORIDE 10 MEQ TABLET.ER PO SCH ×2 (11:25→17:35)
[2019-10-10] MEDS: MAGNESIUM OXIDE 400 MG TABLET PO SCH ×3 (11:25→17:35)
[2019-10-10] MEDS: ASCORBIC ACID 500 MG TABLET PO SCH ×2 (11:26→17:35)
[2019-10-10] MEDS: MULTIVITAMIN TABLET PO SCH (11:26)
[2019-10-10] MEDS: FAMOTIDINE 20 MG TABLET PO SCH ×2 (11:26→21:51)
[2019-10-10] MEDS: METOPROLOL SUCCINATE 25 MG TAB.SR.24H PO SCH (11:26)
[2019-10-10] MEDS: FERROUS SULFATE 325 MG TABLET PO SCH ×2 (11:26→17:35)
[2019-10-10] MEDS: GABAPENTIN 300 MG CAPSULE PO SCH ×2 (11:26→21:51)
[2019-10-10] MEDS: FLUTICASONE/UMECLIDIN/VILANTER 100-62.5-25 MCG/DOSE IH SCH (11:27)
[2019-10-10] MEDS: PANTOT AC/MIN OIL/PET HY-PHL OINT 50 GM TOP SCH ×2 (11:29→17:36)
[2019-10-10] MEDS: CEFEPIME 1 GM/D5W RTU 1 GM/50 ML RTUPB IV SCH ×2 (11:34→21:52)
[2019-10-10] MEDS: LISINOPRIL 10 MG TABLET PO SCH (11:36)
[2019-10-10] MEDS: FUROSEMIDE 20 MG TABLET PO SCH (11:36)
[2019-10-10] MEDS: OXYCODONE HCL IR 5 MG TABLET PO PRN (11:37)
[2019-10-10] MEDS: ZINC SULFATE 220 MG CAPSULE PO SCH (11:51)
--- NOTE | 2019-10-10 13:46 | Progress Note ---
Provider Note Provider Note: [facility] ID Telephone Advice Consultation Chart reviewed. This is a 69-year-old man with CHF, CAD s/p MS, COPD, anemia who was admitted on 10/06 after a fall. Per notes, patient mentions that he has been weak for the past few months but this has been worsening. He fell and sustained an injury to his left elbow. He has an open wound. He had leukocytosis, elevated CK, JUDY and elevated LFTs consistent with rhabdomyolysis. Blood cultures had 1 set positive with Staphylococcus epidermidis and another set with Acinetobacter and Staphylococcus hominis. He has been on vancomycin and cefepime since 10/06. He has been afebrile, HD stable, leukocytosis resolved. ID consulted for recommendations. PMH: CHF COPD CAD s/p MS Anemia ALlergies: No Known Allergies Allergy (Verified 05/17/18 06:05) Medications: Gabapentin [Neurontin 300 mg Capsule] 300 mg PO DAILY 06/25/13 Albuterol Sulfate [Proair HFA Inhalation Aerosol 8.5 gm MDI] 2 puff IH Q6HP PRN 05/17/18 Aspirin [Ecotrin 81 mg EC Tablet] 81 mg PO DAILY 05/17/18 Atorvastatin Calcium [Lipitor 80 mg Tablet] 80 mg PO QHS 05/17/18 Clopidogrel Bisulfate [Plavix 75 mg Tablet] 75 mg PO DAILY 05/17/18 Gabapentin [Neurontin 300 mg Capsule] 900 mg PO QHS 05/17/18 Lisinopril [Prinivil 10 mg Tablet] 10 mg PO DAILY 05/17/18 Metoprolol Succinate [Toprol Xl 25 mg Tab.sr] 25 mg PO DAILY 05/17/18 Oxycodone HCl 15 mg PO Q4HP PRN MDD 90 MG 05/17/18 Potassium Chloride [Klor-Con 10 Meq Tablet ER] 20 meq PO DAILY 05/17/18 Zolpidem Tartrate [Ambien 5 mg Tablet] 10 mg PO HSP PRN 05/17/18 Albuterol Sulfate [Ventolin 0.083% Neb 2.5 mg/3 ml Ampul] 2.5 mg NEB Q6 10/05/19 Buprenorphine [Butrans] 5 mcg TD TEJADA@1000 10/05/19 Cyclobenzaprine HCl [Flexeril 10 mg Tablet] 10 mg PO TIDP PRN 10/05/19 Famotidine [Pepcid 20 mg Tablet] 20 mg PO DAILY 10/05/19 Fluticasone/Umeclidin/Vilanter [Trelegy 100-62.5-25 Mcg Ellipta 14 Dose/Dpi] 1 puff IH DAILY 10/05/19 Furosemide [Lasix 40 mg Tablet] 40 mg PO DAILY 10/05/19 Vital Signs: Temp Pulse Resp BP Pulse Ox 97.5 F 95 18 113/43 L 97 10/10/19 11:24 10/10/19 11:24 10/10/19 11:24 10/10/19 11:24 10/10/19 11:24 Intake & Output 10/09/19 10/10/19 10/11/19 06:59 06:59 06:59 Intake Total 1630 1090 300 Output Total 2975 1500 Balance -1345 -410 300 Weight 83.9 kg 81.7 kg Weight/Height Weight 81.7 kg Height 6 ft Laboratories: 10/10/19 05:09 10/10/19 05:09 MCV 73 fl (80-97) L 10/10/19 05:09 MCH 24.1 pg (27.0-33.4) L 10/10/19 05:09 MCHC 33.2 g/dL (32.0-36.0) 10/10/19 05:09 RDW 17.6 % (11.5-14.0) H 10/10/19 05:09 Seg Neutrophils % Not Reportable 10/10/19 05:09 Retic Count (auto) 2.52 % (0.66-2.85) 10/06/19 05:49 Chloride 102 mmol/L (98-107) 10/10/19 05:09 Carbon Dioxide 32 mmol/L (22-30) H 10/10/19 05:09 Anion Gap 5 (5-19) 10/10/19 05:09 Est GFR ( Amer) > 60 (>60) 10/10/19 05:09 Glucose 113 mg/dL (75-110) H 10/10/19 05:09 Lactic Acid 1.8 mmol/L (0.7-2.1) 10/05/19 17:48 Calcium 8.8 mg/dL (8.4-10.2) 10/10/19 05:09 Magnesium 1.6 mg/dL (1.6-2.3) 10/10/19 05:09 Iron 22.8 ug/dL (49-181) L 10/06/19 05:49 TIBC 208 ug/dL (250-450) L 10/06/19 05:49 % Saturation 11 % 10/06/19 05:49 Transferrin 134.80 mg/dL (206.00-381.00) L 10/06/19 05:49 Ferritin 178.00 ng/mL (17.9-464.0) 10/06/19 05:49 Total Bilirubin 1.0 mg/dL (0.2-1.3) 10/10/19 05:09 AST 46 U/L (17-59) 10/10/19 05:09 Alkaline Phosphatase 61 U/L (38-126) 10/10/19 05:09 Total Protein 5.1 g/dL (6.3-8.2) L 10/10/19 05:09 Albumin 2.6 g/dL (3.5-5.0) L 10/10/19 05:09 Vitamin B12 > 1000.0 pg/mL (239-931) H 10/06/19 05:49 Folate 5.60 ng/mL (>2.76) 10/06/19 05:49 Urine Color [place] 10/07/19 13:41 Urine Appearance CLEAR 10/07/19 13:41 Urine pH 5.0 (5.0-9.0) 10/07/19 13:41 Ur Specific [place] 1.016 10/07/19 13:41 Urine Protein NEGATIVE mg/dL (NEGATIVE) 10/07/19 13:41 Urine Glucose (UA) NEGATIVE mg/dL (NEGATIVE) 10/07/19 13:41 Urine Ketones NEGATIVE mg/dL (NEGATIVE) 10/07/19 13:41 Urine Blood NEGATIVE (NEGATIVE) 10/07/19 13:41 Urine RBC (Auto) 1 /HPF 10/07/19 13:41 10/05/19 21:20 Blood Blood Culture (PCR) - Final Staphylococcus Species Acinetobacter Baumannii 10/05/19 21:20 Blood Blood Culture - Final Staphylococcus Simulans Acinetobacter Baumannii/Haem 10/05/19 10/05/19 10/05/19 15:22 15:22 17:48 Creatine Kinase 1191 H 1158 H CK-MB (CK-2) 14.00 H Troponin I 0.100 NT-Pro-B Natriuret Pep 10/05/19 10/06/19 10/06/19 17:48 05:49 05:49 Creatine Kinase 659 H CK-MB (CK-2) Troponin I 0.100 NT-Pro-B Natriuret Pep 2990 H 2450 H 10/07/19 10/08/19 07:09 05:03 Creatine Kinase 247 H 171 H CK-MB (CK-2) Troponin I NT-Pro-B Natriuret Pep Microbiology: 10/04 Acinetobacter baumannii, Staphlylococcus hominis - 1st set Staphylococcus epidermidis - 2nd set Radiology: Head CT 10/05/19 14:26 IMPRESSION: Mild involutional changes. Intracranial atherosclerosis. No acute intracranial imaging findings. EVIDENCE OF ACUTE STROKE: NO. Cervical Spine CT 10/05/19 14:28 IMPRESSION: Cervical kyphosis. Extensive degenerative disc disease and spondylosis. Multiple laminectomies. No acute finding. Elbow X-Ray 10/05/19 20:54 IMPRESSION: No fracture. Chest X-Ray 10/07/19 00:00 IMPRESSION: Similar right basilar scarring -subsegmental atelectasis. No acute consolidation or pleural effusion. Assessment and Recommendations: Patient evaluated due to Acinetobacter bacteremia. He sustained an injury to his left elbow after a fall and has an open wound. The CoNS species in blood cultures likely represent contamination. Acinetobacter may as well be a conta minant, but due to potential complications that can occur if untreated if true bacteremia, will recommend to complete 10 days of therapy. He has received 3 days of cefepime, will recommend 7 more days of therapy, can transition to either ciprofloxacin 500 mg bid or levofloxacin 500 mg daily to complete the course of antibiotics. Avoid any MVI or divalent cations, be aware of risk of CDI and tendon rupture. QTc is adequate at 477. Please call if questions. Ingrid Valdez MD [facility] ID [id number]
[2019-10-10] MEDS: BACITRACIN ZINC OINTMENT 15 GM TP PRN (14:49)
[2019-10-10] MEDS: TAMSULOSIN HCL 0.4 MG CAP.SR.24H PO SCH (17:35)
[2019-10-10] MEDS: TEMAZEPAM 7.5 MG CAPSULE PO SCH (21:51)
[2019-10-10] MEDS: ATORVASTATIN CALCIUM 80 MG TABLET PO SCH (21:52)
[2019-10-11] MEDS: HEPARIN SOD (PORCINE) 5,000 UNIT/ML 1 ML VIAL SUBCUT SCH ×3 (05:01→22:00)
[2019-10-11] MEDS: VANCOMYCIN HCL 1,000 MG in DEXTROSE 5%-WATER 250 ML IV SCH (05:01)
[2019-10-11] MEDS: IPRATROPIUM/ALBUTEROL 0.5-2.5 MG/3 ML AMPUL NEB SCH (09:03)
[2019-10-11] MEDS: BUDESONIDE NEB 0.5 MG/2 ML AMPUL NEB SCH (09:04)
[2019-10-11] MEDS: GABAPENTIN 300 MG CAPSULE PO SCH ×2 (09:46→22:00)
[2019-10-11] MEDS: MAGNESIUM OXIDE 400 MG TABLET PO SCH ×2 (09:46→17:15)
[2019-10-11] MEDS: FUROSEMIDE 20 MG TABLET PO SCH (09:46)
[2019-10-11] MEDS: POTASSIUM CHLORIDE 10 MEQ TABLET.ER PO SCH ×2 (09:47→17:15)
[2019-10-11] MEDS: MULTIVITAMIN TABLET PO SCH (09:47)
[2019-10-11] MEDS: FERROUS SULFATE 325 MG TABLET PO SCH ×2 (09:47→17:15)
[2019-10-11] MEDS: METOPROLOL SUCCINATE 25 MG TAB.SR.24H PO SCH (09:47)
[2019-10-11] MEDS: ASPIRIN 81 MG TABLET, ENT COATED PO SCH (09:47)
[2019-10-11] MEDS: ASCORBIC ACID 500 MG TABLET PO SCH ×2 (09:47→17:15)
[2019-10-11] MEDS: LISINOPRIL 5 MG TABLET PO SCH (09:47)
[2019-10-11] MEDS: FAMOTIDINE 20 MG TABLET PO SCH ×2 (09:47→22:00)
[2019-10-11] MEDS: CIPROFLOXACIN HCL 500 MG TABLET PO SCH ×2 (09:48→22:00)
[2019-10-11] MEDS: ZINC SULFATE 220 MG CAPSULE PO SCH (09:48)
[2019-10-11] MEDS: CLOPIDOGREL BISULFATE 75 MG TABLET PO SCH (09:48)
[2019-10-11] MEDS: PANTOT AC/MIN OIL/PET HY-PHL OINT 50 GM TOP SCH ×2 (09:49→17:16)
[2019-10-11] MEDS: FLUTICASONE/UMECLIDIN/VILANTER 100-62.5-25 MCG/DOSE IH SCH (09:50)
[2019-10-11] MEDS: OXYCODONE HCL IR 5 MG TABLET PO PRN ×2 (09:56→14:05)
[2019-10-11] MEDS ORDERED: LISINOPRIL 10 MG TABLET PO SCH (10:00)
--- NOTE | 2019-10-11 10:37 | PDOC PROGRESS REPORT ---
Subjective Progress Note for:: 10/11/19 Subjective:: 69 year old male to this provider. He has a history of congestive heart failure, coronary artery disease, myocardial infarction and hypertension. He also has chronic obstructive pulmonary disease on home oxygen and respiratory failure. In addition he bruises easily and is anemic. There is a distant history of seizures. The patient reports that he has been feeling weak since May. He has not had alcohol or tobacco since 2012. His home oxygen is usually 2 to 3 L. With his weakness he finally fell. He sustained a large deep skin tear/laceration on the left elbow. In addition he cannot mobilize and was stuck on the floor for a day. He was able to eventually reach the phone and call for help. During that time he had minimal intake. It is also likely that he missed some doses of medication. Currently he looks exhausted. He is pale. He has the skin tear/laceration on the left arm the leading edge of the skin is beginning to curl and retract. Laboratory studies revealed an acute kidney injury as well as liver dysfunction, and elevated creatinine kinase consistent with rhabdomyolysis and his anemia. He will be admitted to the [facility]. He needs fluids but we need to be mindful of his history of congestive heart failure. Although his liver dysfunction and serum creatinine qualify for sepsis I do not believe that this patient is septic. The emergency department physician is going to suture his left arm and he will be on ceftriaxone. 10/09/2019-comfortably in the bed communicating well. Waiting for physical therapy and Occupational Therapy evaluation. He has wounds on the arms getting Xeroform dressings. Cultures are positive for Acinetobacter pansensitive. Presently on IV cefepime and vancomycin. Plan is to continue the antibiotic therapy at this time. His [employer] contact isolation. 10/10/2019- 69-year-old male admitted with acute acute kidney injury which was resolved rhabdomyolysis which was resolved blood cultures are positive for Staphylococcus coagulase-negative and Acinetobacter. Patient is presently on IV cefepime and vancomycin consultation with ID is requested. Needed will arrange for a DANIA. Patient is afebrile WBC count is 7400. Plan is to discharge him to SNF physical therapy is working with the patient. 10/11/2019-patient admitted with acute kidney injury resolved. Rhabdomyolysis resolved. Blood cultures came back positive so for Acinetobacter ID consult was requested. The impression may be contamination. The plan is to switch IV antibiotics to p.o. antibiotics as per ID recommendations. Patient may be able to go to long-term care facility tomorrow. No acute events in the last 24 hours. Reason For Visit: ACUTE KIDNEY INJURY, RHABDOMYOLYSIS, LACERATION Physical Exam Vital Signs: Temp Pulse Resp BP Pulse Ox 98.4 F 79 18 107/57 L 97 10/11/19 08:07 10/11/19 08:07 10/11/19 08:07 10/11/19 08:07 10/11/19 08:07 Intake & Output 10/10/19 10/11/19 10/12/19 06:59 06:59 06:59 Intake Total 1090 1470 250 Output Total 1500 1825 Balance -410 -355 250 Weight 81.7 kg 82.5 kg General appearance: PRESENT: no acute distress Eye exam: PRESENT: PERRLA Mouth exam: PRESENT: dry mucosa Teeth exam: PRESENT: poor dentation Neck exam: ABSENT: carotid bruit, JVD, lymphadenopathy, thyromegaly Respiratory exam: PRESENT: decreased breath sounds Cardiovascular exam: PRESENT: RRR. ABSENT: diastolic murmur, rubs, systolic murmur GI/Abdominal exam: PRESENT: normal bowel sounds, soft. ABSENT: distended, guarding, mass, organolmegaly, rebound, tenderness Rectal exam: PRESENT: deferred Extremities exam: PRESENT: full ROM. ABSENT: calf tenderness, clubbing, pedal edema Neurological exam: PRESENT: alert, awake, oriented to person, oriented to place, oriented to time, oriented to situation, CN II-XII grossly intact. ABSENT: motor sensory deficit Psychiatric exam: PRESENT: appropriate affect, normal mood. ABSENT: homicidal ideation, suicidal ideation Results Laboratory Results: 10/10/19 05:09 10/10/19 05:09 10/05/19 21:20 Blood Blood Culture (PCR) - Final Staphylococcus Species Acinetobacter Baumannii 10/05/19 21:20 Blood Blood Culture - Final Staphylococcus Simulans Acinetobacter Baumannii/Haem 10/05/19 10/05/19 10/05/19 15:22 15:22 17:48 Creatine Kinase 1191 H 1158 H CK-MB (CK-2) 14.00 H Troponin I 0.100 NT-Pro-B Natriuret Pep 10/05/19 10/06/19 10/06/19 17:48 05:49 05:49 Creatine Kinase 659 H CK-MB (CK-2) Troponin I 0.100 NT-Pro-B Natriuret Pep 2990 H 2450 H 10/07/19 10/08/19 07:09 05:03 Creatine Kinase 247 H 171 H CK-MB (CK-2) Troponin I NT-Pro-B Natriuret Pep Impressions: Head CT 10/05/19 14:26 IMPRESSION: Mild involutional changes. Intracranial atherosclerosis. No acute intracranial imaging findings. EVIDENCE OF ACUTE STROKE: NO. Cervical Spine CT 10/05/19 14:28 IMPRESSION: Cervical kyphosis. Extensive degenerative disc disease and spondylosis. Multiple laminectomies. No acute finding. Elbow X-Ray 10/05/19 20:54 IMPRESSION: No fracture. Chest X-Ray 10/07/19 00:00 IMPRESSION: Similar right basilar scarring -subsegmental atelectasis. No acute consolidation or pleural effusion. Assessment and Plan - Diagnosis (1) Rhabdomyolysis Qualifiers: Rhabdomyolysis type: traumatic Encounter type: initial encounter Qualified Code(s): T79.6XXA - Traumatic ischemia of muscle, initial encounter Is this a current diagnosis for this admission?: Yes Plan: 10/05/2019 The patient fell and lay on the floor for many hours. His creatinine kinase is elevated. This along with dehydration are likely the cause of the acute kidney failure with acute tubular necrosis. We will give IV fluids and monitor intake and output. We will check serial labs to monitor renal function. We need to be mindful of his history of heart failure when giving IV fluids. 10/05/2019 Creatinine kinase is down to 659. We will continue very gentle IV fluids. 10/07/2019 Creatinine kinase is down to 247. It should normalize within the next day or 2. Bilirubin is now normal. Rhabdomyolysis is basically resolved. 10/08/2019 Creatinine kinase is 171 but the upper limit of normal at 170. Rhabdo is resolved. (2) Acute kidney injury (JUDY) with acute tubular necrosis (ATN) Is this a current diagnosis for this admission?: Yes Plan: 10/05/2019 Due to a combination of dehydration and rhabdomyolysis. The patient is also on lisinopril but I believe he missed the dose while he was stuck on the floor. Will give IV fluids being mindful of his history of heart failure. We will monitor renal function closely. I have held his daily Lasix for tonight. 10/06/2019 Serum creatinine is down from 1.53 into the normal range at 1.18. Continue gentle fluids as above and monitor renal function. 10/07/2019 Renal function normal. JUDY resolved. (3) Laceration of elbow, left, complicated Is this a current diagnosis for this admission?: Yes Plan: 10/05/2019 The patient's arm will be sutured in the emergency department. He will be on ceftriaxone. The big risk is his extremely fragile skin. If the wound dehiscence then I will clean it and we will laying the skin flap down as best as possible. Approximate the edges as closely as possible. There will certainly be exposed space. We will use Xeroform through the weekend and possibly get collagen dressings with a wound care evaluation. I have added a multivitamin and zinc to help with his healing. 10/06/2019 We will utilize Xeroform dressings through the weekend. Will consult wound care on Tuesday. The patient will benefit from collagen dressings with silver 10/07/2019 We will change to Adaptic dressing. I will also apply Aquaphor to his skin as this will help with the dryness and fragile nature. I will ask the wound center to evaluate on Tuesday in anticipation of outpatient wound care appointment. 10/08/2019 Have asked the wound care center to come evaluate patient's wound. He might be a candidate for outpatient wound care visits. (4) Chronic obstructive pulmonary disease Qualifiers: COPD type: unspecified COPD Qualified Code(s): J44.9 - Chronic obstructive pulmonary disease, unspecified Is this a current diagnosis for this admission?: Yes Plan: I will initially utilize nebulizer treatments. The patient will try to get back to his baseline 2 L to 3 L nasal cannula. I will likely follow him over to his own inhaler regimen or substitute Trelegy while he is in the hospital. No steroids at this point. 10/06/2019 Tomorrow will order his Trelegy and return scheduled nebulizers to as needed. 10/07/2019 Trelegy restarted today. Decrease scheduled nebulizer treatments to every 12 hours. Attempt to taper oxygen back to the 2-1/2 L that he uses at home 10/08/2019 Stable. Consider changing nebulizers to as needed with daily Trelegy inhaler therapy (5) Anemia Qualifiers: Anemia type: iron deficiency Iron deficiency anemia type: inadequate dietary iron intake Qualified Code(s): D50.8 - Other iron deficiency anemias Is this a current diagnosis for this admission?: Yes Plan: 10/05/2019 The patient reports that his primary care was working up his anemia. Evidently he was to be referred to hematology. I have ordered anemia work-up in the morning. He will be on a multivitamin and iron supplement as well as vitamin C. 10/06/2019 Laboratory studies confirm iron deficiency anemia. My guess is that his oral intake is poor at home. He has been started on oral iron but I have ordered a dose of iron sucrose. We will continue to monitor hemoglobin. 10/07/2019 Hemoglobin was 9 yesterday. It is 9.2 today. Anemia is improving. He received IV iron yesterday. Today I will increase oral iron supplement to twice a day. 10/08/2019 Spoke to patient's daughter. He has a terrible diet. His favorite food is Milk Duds. She asked about Meals on Wheels. With a better diet his hemoglobin is starting to improve. 10/10/2019-latest hemoglobin is 9.5 stable. (6) Chronic diastolic heart failure Is this a current diagnosis for this admission?: No Plan: 10/05/2019 Echocardiogram in April 2018 revealed a normal ejection fraction with grade 1/4 diastolic failure. We will scrutinize his IV fluids so as not to create volume overload. 10/06/2019 The brain natruretic peptide went from 2990 down to 2415. He is tolerating gentle fluids. Consider resuming his furosemide tomorrow. 10/07/2019 Stable. I will resume furosemide but at the decreased dose of 20 mg daily. 10/08/2019 Increase furosemide back to 40 mg daily 10/10/19-blood pressure today's 100/60. Asymptomatic. Patient is receiving furosemide 40 mg daily. (7) Chronic neck and back pain Is this a current diagnosis for this admission?: No Plan: 10/05/2019 Continue opiate therapy since this is chronic and I do not want to cause withdrawal. 10/06/2019 Continue pain management 10/07/2019 We will need to scrutinize pain management regimen. Increased pain medications could contribute to instability and falls. (8) Essential hypertension Is this a current diagnosis for this admission?: No Plan: 10/05/2019 The patient is on metoprolol, lisinopril and furosemide. I am holding the furosemide today due to the dehydration. I will likely utilize all 3 medications tomorrow but this will be based on his volume status, pulse and bloo d pressure. 10/06/2019 Blood pressures have been borderline to low. They seem to be improved today. We will continue to monitor closely and add medications judiciously. 10/07/2019 Blood pressure much better this morning. Continue to monitor with vital signs. 10/08/2019 Blood pressure were elevated. It seems that after the Espitia catheter was placed to relieve the urinary obstruction the patient's numbers improved 10/09/2019-blood pressure today is 112/60. Stable. 10/10/19-blood pressure today is 99/50. Asymptomatic comfortably in the bed communicating well. 10/11/2019-blood pressure today is 122/60. Stable. Plan is to continue the present management. (9) Pulmonary hypertension Is this a current diagnosis for this admission?: No Plan: 10/05/2019 Identified with the echocardiogram in April 2018. Continue current medication regimen. This may be contributing somewhat to his shortness of breath. 10/06/2019 Chronic and stable 10/07/2019 Chronic and stable. No specific intervention other than current medication viktoriya men and treating COPD. (10) Lactic acidemia Is this a current diagnosis for this admission?: Yes Plan: 10/05/2019 The patient received 2 L of fluid in the emergency department and his lactic acid normalized. 10/06/2019 Resolved 10/07/2019 No further need to monitor lactic acid levels. (11) Hyperbilirubinemia Is this a current diagnosis for this admission?: Yes Plan: 10/05/2019 Likely due to a constellation of events including the dehydration, rhabdo and kidney injury. His bilirubin in fact was elevated when I admitted the patient in April. While we are monitoring his renal function we will also monitor liver function with serial labs. His prothrombin time is slightly elevated. This could also be a reflection of his nutritional status. We will continue to monitor closely. 10/06/2019 Improving. Bilirubin is down to 1.8 from 2.3. 10/07/2019 Resolved (12) Dehydration Is this a current diagnosis for this admission?: Yes Plan: 10/05/2019 Judicious use of IV fluids and the patient's baseline medications. Serial laboratory studies are ordered. 10/06/2019 BUN is down to 26 from 32. Continue gentle fluids. I encouraged the patient to drink more water. 10/07/2019 Resolved (13) Leukocytosis Qualifiers: Leukocytosis type: unspecified Qualified Code(s): D72.829 - Elevated white blood cell count, unspecified Is this a current diagnosis for this admission?: Yes Plan: 10/05/2019 This is most likely a physiologic response to the recent events and current pat hology. He will be on ceftriaxone for the laceration. There is no suggestion of pneumonia. Blood cultures and urine culture have been ordered. 10/06/2019 White blood cell count is now normal. 10/07/2019 Resolved (14) Positive blood culture Is this a current diagnosis for this admission?: Yes Plan: 10/09/2019-blood cultures were positive for Acinetobacter and a Staphylococcus coagulase-negative. Presently on IV cefepime and vancomycin. Plan is to continue present antibiotic therapy. 10/10/19-blood cultures growing Staphylococcus species probably contamination and Acinetobacter. Patient is receiving IV cefepime and vancomycin, ID consult is requested. 10/11/2019-ID consult was done because blood cultures came back positive for Acinetobacter the recommendation is it can be contaminant but recommendation is 10 days of antibiotic therapy as per ID recommendations IV antibiotics are discontinued started on p.o. levofloxacin 40 mg daily. Patient may build to go to long-term care facility tomorrow.
[2019-10-11] MEDS: TAMSULOSIN HCL 0.4 MG CAP.SR.24H PO SCH (17:15)
[2019-10-11] MEDS: TEMAZEPAM 7.5 MG CAPSULE PO SCH (22:00)
[2019-10-11] MEDS: ATORVASTATIN CALCIUM 80 MG TABLET PO SCH (22:00)
[2019-10-11] MEDS: MAGNESIUM HYDROXIDE SUSP 30 ML UDCUP PO PRN (22:06)
[2019-10-12 06:08] LABS: HEMATOCRIT 27.6 % (37.9-51.0); HEMOGLOBIN 8.9 g/dL (13.5-17.0); MEAN CORPUSCULAR HEMOGLOBIN 23.9 pg (27.0-33.4); MEAN CORPUSCULAR HGB CONC 32.4 g/dL (32.0-36.0); MEAN CORPUSCULAR VOLUME 74 fl (80-97); PLATELET COUNT 278 10^3/uL (150-450); RED BLOOD COUNT 3.74 10^6/uL (4.35-5.55); RED CELL DISTRIBUTION WIDTH 17.8 % (11.5-14.0); WHITE BLOOD COUNT 6.4 10^3/uL (4.0-10.5)
[2019-10-12] MEDS: HEPARIN SOD (PORCINE) 5,000 UNIT/ML 1 ML VIAL SUBCUT SCH ×3 (06:18→21:13)
[2019-10-12 06:31] LABS: ALBUMIN 2.4 g/dL (3.5-5.0); ALKALINE PHOSPHATASE 68 U/L (38-126); ASPARTATE AMINO TRANSFERASE 38 U/L (17-59); BILIRUBIN,TOTAL 0.6 mg/dL (0.2-1.3); BLOOD UREA NITROGEN 16 mg/dL (7-20); CALCIUM 8.9 mg/dL (8.4-10.2); CHLORIDE 103 mmol/L (98-107); GLUCOSE 120 mg/dL (75-110); POTASSIUM 4.5 mmol/L (3.6-5.0); TOTAL PROTEIN 4.7 g/dL (6.3-8.2)
[2019-10-12 06:35] LABS: ABSOLUTE LYMPHOCYTES# (MANUAL) 0.9 10^3/uL (0.5-4.7); ABSOLUTE MONOCYTES # (MANUAL) 0.2 10^3/uL (0.1-1.4); BAND NEUTROPHILS % (MANUAL) 1 % (3-5); BASOPHILS % (MANUAL) 0 % (0-2); EOSINOPHILS % (MANUAL) 3 % (0-6); LYMPHOCYTES % (MANUAL) 14 % (13-45); MONOCYTES % (MANUAL) 3 % (3-13); SEGMENTED NEUTROPHILS % (MAN) 79 % (42-78); TOTAL CELLS COUNTED 100; TOXIC GRANULATION SLIGHT
[2019-10-12 06:36] LABS: ANISOCYTOSIS 1+; BURR CELLS 1+; CARBON DIOXIDE 32 mmol/L (22-30); OVALOCYTES 1+; PLATELET COMMENT ADEQUATE; POIKILOCYTOSIS 1+; SCHISTOCYTES SLIGHT; TEAR DROP CELLS SLIGHT
[2019-10-12 06:43] LABS: ANION GAP 3 (5-19)
[2019-10-12] MEDS: MAGNESIUM OXIDE 400 MG TABLET PO SCH ×3 (08:00→18:04)
[2019-10-12] MEDS: ZINC SULFATE 220 MG CAPSULE PO SCH (08:00)
[2019-10-12] MEDS: OXYCODONE HCL IR 5 MG TABLET PO PRN ×3 (08:00→22:10)
[2019-10-12] MEDS: CIPROFLOXACIN HCL 500 MG TABLET PO SCH ×2 (10:14→21:14)
[2019-10-12] MEDS: POTASSIUM CHLORIDE 10 MEQ TABLET.ER PO SCH ×2 (10:14→18:06)
[2019-10-12] MEDS: FERROUS SULFATE 325 MG TABLET PO SCH ×2 (10:15→18:06)
[2019-10-12] MEDS: ASCORBIC ACID 500 MG TABLET PO SCH ×2 (10:15→18:05)
[2019-10-12] MEDS: LISINOPRIL 5 MG TABLET PO SCH (10:16)
[2019-10-12] MEDS: FUROSEMIDE 20 MG TABLET PO SCH (10:16)
[2019-10-12] MEDS: CLOPIDOGREL BISULFATE 75 MG TABLET PO SCH (10:16)
[2019-10-12] MEDS: GABAPENTIN 300 MG CAPSULE PO SCH ×2 (10:16→21:12)
[2019-10-12] MEDS: FAMOTIDINE 20 MG TABLET PO SCH ×2 (10:16→21:13)
[2019-10-12] MEDS: MULTIVITAMIN TABLET PO SCH (10:17)
[2019-10-12] MEDS: METOPROLOL SUCCINATE 25 MG TAB.SR.24H PO SCH (10:17)
[2019-10-12] MEDS: FLUTICASONE/UMECLIDIN/VILANTER 100-62.5-25 MCG/DOSE IH SCH (10:17)
[2019-10-12] MEDS: ASPIRIN 81 MG TABLET, ENT COATED PO SCH (10:17)
[2019-10-12] MEDS: PANTOT AC/MIN OIL/PET HY-PHL OINT 50 GM TOP SCH ×2 (10:18→18:08)
[2019-10-12] MEDS: MAGNESIUM HYDROXIDE SUSP 30 ML UDCUP PO PRN (12:53)
--- NOTE | 2019-10-12 16:20 | PDOC PROGRESS REPORT ---
Subjective Progress Note for:: 10/12/19 Subjective:: 69 year old male to this provider. He has a history of congestive heart failure, coronary artery disease, myocardial infarction and hypertension. He also has chronic obstructive pulmonary disease on home oxygen and respiratory failure. In addition he bruises easily and is anemic. There is a distant history of seizures. The patient reports that he has been feeling weak since May. He has not had alcohol or tobacco since 2012. His home oxygen is usually 2 to 3 L. With his weakness he finally fell. He sustained a large deep skin tear/laceration on the left elbow. In addition he cannot mobilize and was stuck on the floor for a day. He was able to eventually reach the phone and call for help. During that time he had minimal intake. It is also likely that he missed some doses of medication. Currently he looks exhausted. He is pale. He has the skin tear/laceration on the left arm the leading edge of the skin is beginning to curl and retract. Laboratory studies revealed an acute kidney injury as well as liver dysfunction, and elevated creatinine kinase consistent with rhabdomyolysis and his anemia. He will be admitted to the [facility]. He needs fluids but we need to be mindful of his history of congestive heart failure. Although his liver dysfunction and serum creatinine qualify for sepsis I do not believe that this patient is septic. The emergency department physician is going to suture his left arm and he will be on ceftriaxone. 10/09/2019-comfortably in the bed communicating well. Waiting for physical therapy and Occupational Therapy evaluation. He has wounds on the arms getting Xeroform dressings. Cultures are positive for Acinetobacter pansensitive. Presently on IV cefepime and vancomycin. Plan is to continue the antibiotic therapy at this time. His [employer] contact isolation. 10/10/2019- 69-year-old male admitted with acute acute kidney injury which was resolved rhabdomyolysis which was resolved blood cultures are positive for Staphylococcus coagulase-negative and Acinetobacter. Patient is presently on IV cefepime and vancomycin consultation with ID is requested. Needed will arrange for a DANIA. Patient is afebrile WBC count is 7400. Plan is to discharge him to SNF physical therapy is working with the patient. 10/11/2019-patient admitted with acute kidney injury resolved. Rhabdomyolysis resolved. Blood cultures came back positive so for Acinetobacter ID consult was requested. The impression may be contamination. The plan is to switch IV antibiotics to p.o. antibiotics as per ID recommendations. Patient may be able to go to long-term care facility tomorrow. No acute events in the last 24 hours. 10/12/2019-no acute events in the last 24 hours. Patient stable to go to the senior care today but COVID testing results are pending. Reason For Visit: ACUTE KIDNEY INJURY, RHABDOMYOLYSIS, LACERATION Physical Exam Vital Signs: Temp Pulse Resp BP Pulse Ox 98.2 F 86 18 106/42 L 98 10/12/19 15:58 10/12/19 15:58 10/12/19 15:58 10/12/19 15:58 10/12/19 15:58 Intake & Output 10/11/19 10/12/19 10/13/19 06:59 06:59 06:59 Intake Total 1470 370 Output Total 1825 610 Balance -355 -240 Weight 82.5 kg 81.9 kg General appearance: PRESENT: no acute distress, well-developed Head exam: PRESENT: atraumatic Eye exam: PRESENT: PERRLA Ear exam: PRESENT: normal external ear exam Mouth exam: PRESENT: neck supple Teeth exam: PRESENT: poor dentation Neck exam: ABSENT: carotid bruit, JVD, lymphadenopathy, thyromegaly Respiratory exam: PRESENT: decreased breath sounds Cardiovascular exam: PRESENT: RRR. ABSENT: diastolic murmur, rubs, systolic murmur GI/Abdominal exam: PRESENT: normal bowel sounds, soft. ABSENT: distended, guarding, mass, organolmegaly, rebound, tenderness Rectal exam: PRESENT: deferred Extremities exam: PRESENT: full ROM. ABSENT: calf tenderness, clubbing, pedal edema Neurological exam: PRESENT: alert, awake, oriented to person, oriented to place, oriented to time, oriented to situation, CN II-XII grossly intact. ABSENT: motor sensory deficit Psychiatric exam: PRESENT: appropriate affect, normal mood. ABSENT: homicidal ideation, suicidal ideation Results Laboratory Results: 10/12/19 04:35 10/12/19 04:35 10/12/19 10/12/19 04:35 04:35 WBC 6.4 RBC 3.74 L Hgb 8.9 L Hct 27.6 L MCV 74 L MCH 23.9 L MCHC 32.4 RDW 17.8 H Plt Count 278 Seg Neutrophils % Not Reportable Sodium 138.0 Potassium 4.5 Chloride 103 Carbon Dioxide 32 H Anion Gap 3 L BUN 16 Creatinine 1.13 Est GFR ( Amer) > 60 Glucose 120 H Calcium 8.9 Magnesium 2.6 H Total Bilirubin 0.6 AST 38 Alkaline Phosphatase 68 Total Protein 4.7 L Albumin 2.4 L 10/05/19 21:20 Blood Blood Culture (PCR) - Final Staphylococcus Species Acinetobacter Baumannii 10/05/19 21:20 Blood Blood Culture - Final Staphylococcus Simulans Acinetobacter Baumannii/Haem Anaerococcus (Peptostrep) Sp. 10/05/19 10/05/19 10/05/19 15:22 15:22 17:48 Creatine Kinase 1191 H 1158 H CK-MB (CK-2) 14.00 H Troponin I 0.100 NT-Pro-B Natriuret Pep 10/05/19 10/06/19 10/06/19 17:48 05:49 05:49 Creatine Kinase 659 H CK-MB (CK-2) Troponin I 0.100 NT-Pro-B Natriuret Pep 2990 H 2450 H 10/07/19 10/08/19 07:09 05:03 Creatine Kinase 247 H 171 H CK-MB (CK-2) Troponin I NT-Pro-B Natriuret Pep Impressions: Head CT 10/05/19 14:26 IMPRESSION: Mild involutional changes. Intracranial atherosclerosis. No acute intracranial imaging findings. EVIDENCE OF ACUTE STROKE: NO. Cervical Spine CT 10/05/19 14:28 IMPRESSION: Cervical kyphosis. Extensive degenerative disc disease and spond ylosis. Multiple laminectomies. No acute finding. Elbow X-Ray 10/05/19 20:54 IMPRESSION: No fracture. Chest X-Ray 10/07/19 00:00 IMPRESSION: Similar right basilar scarring -subsegmental atelectasis. No acute consolidation or pleural effusion. Assessment and Plan - Diagnosis (1) Rhabdomyolysis Qualifiers: Rhabdomyolysis type: traumatic Encounter type: initial encounter Qualified Code(s): T79.6XXA - Traumatic ischemia of muscle, initial encounter Is this a current diagnosis for this admission?: Yes Plan: 10/05/2019 The patient fell and lay on the floor for many hours. His creatinine kinase is elevated. This along with dehydration are likely the cause of the acute kidney failure with acute tubular necrosis. We will give IV fluids and monitor intake and output. We will check serial labs to monitor renal function. We need to be mindful of his history of heart failure when giving IV fluids. 10/05/2019 Creatinine kinase is down to 659. We will continue very gentle IV fluids. 10/07/2019 Creatinine kinase is down to 247. It should normalize within the next day or 2. Bilirubin is now normal. Rhabdomyolysis is basically resolved. 10/08/2019 Creatinine kinase is 171 but the upper limit of normal at 170. Rhabdo is resolved. (2) Acute kidney injury (JUDY) with acute tubular necrosis (ATN) Is this a current diagnosis for this admission?: Yes Plan: 10/05/2019 Due to a combination of dehydration and rhabdomyolysis. The patient is also on lisinopril but I believe he missed the dose while he was stuck on the floor. Will give IV fluids being mindful of his history of heart failure. We will monitor renal function closely. I have held his daily Lasix for tonight. 10/06/2019 Serum creatinine is down from 1.53 into the normal range at 1.18. Continue ge ntle fluids as above and monitor renal function. 10/07/2019 Renal function normal. JUDY resolved. (3) Laceration of elbow, left, complicated Is this a current diagnosis for this admission?: Yes Plan: 10/05/2019 The patient's arm will be sutured in the emergency department. He will be on ceftriaxone. The big risk is his extremely fragile skin. If the wound dehiscence then I will clean it and we will laying the skin flap down as best as possible. Approximate the edges as closely as possible. There will certainly be exposed space. We will use Xeroform through the weekend and possibly get collagen dressings with a wound care evaluation. I have added a multivitamin and zinc to help with his healing. 10/06/2019 We will utilize Xeroform dressings through the weekend. Will consult wound care on Tuesday. The patient will benefit from collagen dressings with silver 10/07/2019 We will change to Adaptic dressing. I will also apply Aquaphor to his skin as this will help with the dryness and fragile nature. I will ask the wound center to evaluate on Tuesday in anticipation of outpatient wound care appointment. 10/08/2019 Have asked the wound care center to come evaluate patient's wound. He might be a candidate for outpatient wound care visits. (4) Chronic obstructive pulmonary disease Qualifiers: COPD type: unspecified COPD Qualified Code(s): J44.9 - Chronic obstructive pulmonary disease, unspecified Is this a current diagnosis for this admission?: Yes Plan: I will initially utilize nebulizer treatments. The patient will try to get back to his baseline 2 L to 3 L nasal cannula. I will likely follow him over to his own inhaler regimen or substitute Trelegy while he is in the hospital. No steroids at this point. 10/06/2019 Tomorrow will order his Trelegy and return scheduled nebulizers to as needed. 10/07/2019 Trelegy restarted today. Decrease scheduled nebulizer treatments to every 12 hours. Attempt to taper oxygen back to the 2-1/2 L that he uses at home 10/08/2019 Stable. Consider changing nebulizers to as needed with daily Trelegy inhaler therapy 10/12/2019-patient has history of COPD on examination chest bilateral entry was decreased no wheezing no crepitations. No wheezing present. Pulse ox is 99% on 1.5 L. (5) Anemia Qualifiers: Anemia type: iron deficiency Iron deficiency anemia type: inadequate dietary iron intake Qualified Code(s): D50.8 - Other iron deficiency anemias Is this a current diagnosis for this admission?: Yes Plan: 10/05/2019 The patient reports that his primary care was working up his anemia. Evidently he was to be referred to hematology. I have ordered anemia work-up in the morning. He will be on a multivitamin and iron supplement as well as vitamin C. 10/06/2019 Laboratory studies confirm iron deficiency anemia. My guess is that his oral intake is poor at home. He has been started on oral iron but I have ordered a dose of iron sucrose. We will continue to monitor hemoglobin. 10/07/2019 Hemoglobin was 9 yesterday. It is 9.2 today. Anemia is improving. He received IV iron yesterday. Today I will increase oral iron supplement to twice a day. 10/08/2019 Spoke to patient's daughter. He has a terrible diet. His favorite food is Milk Duds. She asked about Meals on Wheels. With a better diet his hemoglobin is starting to improve. 10/10/2019-latest hemoglobin is 9.5 stable. 10/12/2019-hemoglobin is 8.9. Asymptomatic. Plan is to check the labs on daily basis. (6) Chronic diastolic heart failure Is this a current diagnosis for this admission?: No Plan: 10/05/2019 Echocardiogram in April 2018 revealed a normal ejection fraction with grade 1/4 diastolic failure. We will scrutinize his IV fluids so as not to create volume overload. 10/06/2019 The brain natruretic peptide went from 2990 down to 2415. He is tolerating gentle fluids. Consider resuming his furosemide tomorrow. 10/07/2019 Stable. I will resume furosemide but at the decreased dose of 20 mg daily. 10/08/2019 Increase furosemide back to 40 mg daily 10/10/19-blood pressure today's 100/60. Asymptomatic. Patient is receiving furosemide 40 mg daily. 10/12/2019-patient is euvolemic on examination. Receiving p.o. furosemide. Blood pressure is 104/60 stable. (7) Chronic neck and back pain Is this a current diagnosis for this admission?: No Plan: 10/05/2019 Continue opiate therapy since this is chronic and I do not want to cause withdrawal. 10/06/2019 Continue pain management 10/07/2019 We will need to scrutinize pain management regimen. Increased pain medications could contribute to instability and falls. (8) Essential hypertension Is this a current diagnosis for this admission?: No Plan: 10/05/2019 The patient is on metoprolol, lisinopril and furosemide. I am holding the furos emide today due to the dehydration. I will likely utilize all 3 medications tomorrow but this will be based on his volume status, pulse and blood pressure. 10/06/2019 Blood pressures have been borderline to low. They seem to be improved today. We will continue to monitor closely and add medications judiciously. 10/07/2019 Blood pressure much better this morning. Continue to monitor with vital signs. 10/08/2019 Blood pressure were elevated. It seems that after the Espitia catheter was placed to relieve the urinary obstruction the patient's numbers improved 10/09/2019-blood pressure today is 112/60. Stable. 10/10/19-blood pressure today is 99/50. Asymptomatic comfortably in the bed communicating well. 10/11/2019-blood pressure today is 122/60. Stable. Plan is to continue the present management. (9) Pulmonary hypertension Is this a current diagnosis for this admission?: No Plan: 10/05/2019 Identified with the echocardiogram in April 2018. Continue current medication regimen. This may be contributing somewhat to his shortness of breath. 10/06/2019 Chronic and stable 10/07/2019 Chronic and stable. No specific intervention other than current medication regimen and treating COPD. (10) Lactic acidemia Is this a current diagnosis for this admission?: No Plan: 10/05/2019 The patient received 2 L of fluid in the emergency department and his lactic acid normalized. 10/06/2019 Resolved 10/07/2019 No further need to monitor lactic acid levels. (11) Hyperbilirubinemia Is this a current diagnosis for this admission?: No Plan: 10/05/2019 Likely due to a constellation of events including the dehydration, rhabdo and kidney injury. His bilirubin in fact was elevated when I admitted the patient in April. While we are monitoring his renal function we will also monitor liver function with serial labs. His prothrombin time is slightly elevated. This could also be a reflection of his nutritional status. We will continue to monitor closely. 10/06/2019 Improving. Bilirubin is down to 1.8 from 2.3. 10/07/2019 Resolved (12) Dehydration Is this a current diagnosis for this admission?: No (13) Leukocytosis Qualifiers: Leukocytosis type: unspecified Qualified Code(s): D72.829 - Elevated white blood cell count, unspecified Is this a current diagnosis for this admission?: Yes (14) Positive blood culture Is this a current diagnosis for this admission?: Yes Plan: 10/09/2019-blood cultures were positive for Acinetobacter and a Staphylococcus coagulase-negative. Presently on IV cefepime and vancomycin. Plan is to continue present antibiotic therapy. 10/10/19-blood cultures growing Staphylococcus species probably contamination and Acinetobacter. Patient is receiving IV cefepime and vancomycin, ID consult is requested. 10/11/2019-ID consult was done because blood cultures came back positive for Acinetobacter the recommendation is it can be contaminant but recommendation is 10 days of antibiotic therapy as per ID recommendations IV antibiotics are discontinued started on p.o. levofloxacin 40 mg daily. Patient may build to go to long-term care facility tomorrow. 10/12/2019-blood cultures are positive for Staphylococcus aureus and Acinetobacter possible contaminant. As per ID recommendations patient is on p.o. antibiotic therapy at this time.
[2019-10-12] MEDS: TAMSULOSIN HCL 0.4 MG CAP.SR.24H PO SCH (18:07)
[2019-10-12] MEDS: ATORVASTATIN CALCIUM 80 MG TABLET PO SCH (21:13)
[2019-10-12] MEDS ORDERED: TEMAZEPAM 7.5 MG CAPSULE PO ONE (22:00)
[2019-10-13] MEDS: HEPARIN SOD (PORCINE) 5,000 UNIT/ML 1 ML VIAL SUBCUT SCH ×3 (05:38→21:25)
[2019-10-13] MEDS: OXYCODONE HCL IR 5 MG TABLET PO PRN (06:29)
[2019-10-13] MEDS: MAGNESIUM OXIDE 400 MG TABLET PO SCH ×3 (08:14→17:12)
[2019-10-13] MEDS: ZINC SULFATE 220 MG CAPSULE PO SCH (08:14)
[2019-10-13] MEDS: CIPROFLOXACIN HCL 500 MG TABLET PO SCH ×2 (09:19→21:24)
[2019-10-13] MEDS: ASCORBIC ACID 500 MG TABLET PO SCH ×2 (09:20→17:12)
[2019-10-13] MEDS: ASPIRIN 81 MG TABLET, ENT COATED PO SCH (09:20)
[2019-10-13] MEDS: GABAPENTIN 300 MG CAPSULE PO SCH ×2 (09:20→21:24)
[2019-10-13] MEDS: CLOPIDOGREL BISULFATE 75 MG TABLET PO SCH (09:20)
[2019-10-13] MEDS: FAMOTIDINE 20 MG TABLET PO SCH ×2 (09:20→21:25)
[2019-10-13] MEDS: METOPROLOL SUCCINATE 25 MG TAB.SR.24H PO SCH (09:20)
[2019-10-13] MEDS: FERROUS SULFATE 325 MG TABLET PO SCH ×2 (09:20→17:11)
[2019-10-13] MEDS: MULTIVITAMIN TABLET PO SCH (09:20)
[2019-10-13] MEDS: POTASSIUM CHLORIDE 10 MEQ TABLET.ER PO SCH ×2 (09:20→17:11)
[2019-10-13] MEDS: FUROSEMIDE 20 MG TABLET PO SCH (09:21)
[2019-10-13] MEDS: FLUTICASONE/UMECLIDIN/VILANTER 100-62.5-25 MCG/DOSE IH SCH (09:22)
[2019-10-13] MEDS: PANTOT AC/MIN OIL/PET HY-PHL OINT 50 GM TOP SCH ×2 (09:23→17:12)
[2019-10-13] MEDS: LISINOPRIL 5 MG TABLET PO SCH (14:23)
--- NOTE | 2019-10-13 15:32 | PDOC PROGRESS REPORT ---
Subjective Progress Note for:: 10/13/19 Subjective:: 69 year old male to this provider. He has a history of congestive heart failure, coronary artery disease, myocardial infarction and hypertension. He also has chronic obstructive pulmonary disease on home oxygen and respiratory failure. In addition he bruises easily and is anemic. There is a distant history of seizures. The patient reports that he has been feeling weak since May. He has not had alcohol or tobacco since 2012. His home oxygen is usually 2 to 3 L. With his weakness he finally fell. He sustained a large deep skin tear/laceration on the left elbow. In addition he cannot mobilize and was stuck on the floor for a day. He was able to eventually reach the phone and call for help. During that time he had minimal intake. It is also likely that he missed some doses of medication. Currently he looks exhausted. He is pale. He has the skin tear/laceration on the left arm the leading edge of the skin is beginning to curl and retract. Laboratory studies revealed an acute kidney injury as well as liver dysfunction, and elevated creatinine kinase consistent with rhabdomyolysis and his anemia. [facility]. He needs fluids but we need to be mindful of his history of congestive heart failure. Although his liver dysfunction and serum creatinine qualify for sepsis I do not believe that this patient is septic. The emergency department physician is going to suture his left arm and he will be on ceftriaxone. 10/09/2019-comfortably in the bed communicating well. Waiting for physical therapy and Occupational Therapy evaluation. He has wounds on the arms getting Xeroform dressings. Cultures are positive for Acinetobacter pansensitive. Presently on IV cefepime and vancomycin. Plan is to continue the antibiotic therapy at this time. His [employer] contact isolation. 10/10/2019- 69-year-old male admitted with acute acute kidney injury which was resolved rhabdomyolysis which was resolved blood cultures are positive for Staphylococcus coagulase-negative and Acinetobacter. Patient is presently on IV cefepime and vancomycin consultation with ID is requested. Needed will arrange for a DANIA. Patient is afebrile WBC count is 7400. Plan is to discharge him to SNF physical therapy is working with the patient. 10/11/2019-patient admitted with acute kidney injury resolved. Rhabdomyolysis resolved. Blood cultures came back positive so for Acinetobacter ID consult was requested. The impression may be contamination. The plan is to switch IV antibiotics to p.o. antibiotics as per ID recommendations. Patient may be able to go to long-term care facility tomorrow. No acute events in the last 24 hours. 10/12/2019-no acute events in the last 24 hours. Patient stable to go to the senior living today but COVID testing results are pending. 10/13/2019-no acute events the last 24 hours. Afebrile. COVID test is negative. Waiting for placement. Reason For Visit: ACUTE KIDNEY INJURY, RHABDOMYOLYSIS, LACERATION Physical Exam Vital Signs: Temp Pulse Resp BP Pulse Ox 97.4 F 105 H 15 107/52 L 98 10/13/19 07:37 10/13/19 14:00 10/13/19 07:37 10/13/19 07:37 10/13/19 07:37 Intake & Output 10/12/19 10/13/19 10/14/19 06:59 06:59 06:59 Intake Total 370 100 240 Output Total 610 0 Balance -240 100 240 Weight 81.9 kg 82.7 kg General appearance: PRESENT: no acute distress, well-developed Head exam: PRESENT: atraumatic Eye exam: PRESENT: PERRLA Ear exam: PRESENT: normal external ear exam Teeth exam: PRESENT: poor dentation Neck exam: ABSENT: carotid bruit, JVD, lymphadenopathy, thyromegaly Respiratory exam: PRESENT: decreased breath sounds Cardiovascular exam: PRESENT: RRR. ABSENT: diastolic murmur, rubs, systolic murmur GI/Abdominal exam: PRESENT: normal bowel sounds, soft. ABSENT: distended, guarding, mass, organolmegaly, rebound, tenderness Rectal exam: PRESENT: deferred Neurological exam: PRESENT: alert, awake, oriented to person, oriented to place, oriented to time, oriented to situation, CN II-XII grossly intact. ABSENT: motor sensory deficit Psychiatric exam: PRESENT: appropriate affect, normal mood. ABSENT: homicidal ideation, suicidal ideation Results Laboratory Results: 10/12/19 04:35 10/12/19 04:35 10/05/19 10/05/19 10/05/19 15:22 15:22 17:48 Creatine Kinase 1191 H 1158 H CK-MB (CK-2) 14.00 H Troponin I 0.100 NT-Pro-B Natriuret Pep 10/05/19 10/06/19 10/06/19 17:48 05:49 05:49 Creatine Kinase 659 H CK-MB (CK-2) Troponin I 0.100 NT-Pro-B Natriuret Pep 2990 H 2450 H 10/07/19 10/08/19 07:09 05:03 Creatine Kinase 247 H 171 H CK-MB (CK-2) Troponin I NT-Pro-B Natriuret Pep Impressions: Head CT 10/05/19 14:26 IMPRESSION: Mild involutional changes. Intracranial atherosclerosis. No acute intracranial imaging findings. EVIDENCE OF ACUTE STROKE: NO. Cervical Spine CT 10/05/19 14:28 IMPRESSION: Cervical kyphosis. Extensive degenerative disc disease and spondylosis. Multiple laminectomies. No acute finding. Elbow X-Ray 10/05/19 20:54 IMPRESSION: No fracture. Chest X-Ray 10/07/19 00:00 IMPRESSION: Similar right basilar scarring -subsegmental atelectasis. No acute consolidation or pleural effusion. Assessment and Plan - Diagnosis (1) Rhabdomyolysis Qualifiers: Rhabdomyolysis type: traumatic Encounter type: initial encounter Qualified Code(s): T79.6XXA - Traumatic ischemia of muscle, initial encounter Is this a current diagnosis for this admission?: Yes Plan: 10/05/2019 The patient fell and lay on the floor for many hours. His creatinine kinase is elevated. This along with dehydration are likely the cause of the acute kidney failure with acute tubular necrosis. We will give IV fluids and monitor intake and output. We will check serial labs to monitor renal function. We need to be mindful of his history of heart failure when giving IV fluids. 10/05/2019 Creatinine kinase is down to 659. We will continue very gentle IV fluids. 10/07/2019 Creatinine kinase is down to 247. It should normalize within the next day or 2. Bilirubin is now normal. Rhabdomyolysis is basically resolved. 10/08/2019 Creatinine kinase is 171 but the upper limit of normal at 170. Rhabdo is resolved. (2) Acute kidney injury (JUDY) with acute tubular necrosis (ATN) Is this a current diagnosis for this admission?: Yes Plan: 10/05/2019 Due to a combination of dehydration and rhabdomyolysis. The patient is also on lisinopril but I believe he missed the dose while he was stuck on the floor. Will give IV fluids being mindful of his history of heart failure. We will monitor renal function closely. I have held his daily Lasix for tonight. 10/06/2019 Serum creatinine is down from 1.53 into the normal range at 1.18. Continue gentle fluids as above and monitor renal function. 10/07/2019 Renal function normal. JUDY resolved. (3) Laceration of elbow, left, complicated Is this a current diagnosis for this admission?: Yes Plan: 10/05/2019 The patient's arm will be sutured in the emergency department. He will be on ceftriaxone. The big risk is his extremely fragile skin. If the wound dehiscence then I will clean it and we will laying the skin flap down as best as possible. Approximate the edges as closely as possible. There will certainly be exposed space. We will use Xeroform through the weekend and possibly get collagen dressings with a wound care evaluation. I have added a multivitamin and zinc to help with his healing. 10/06/2019 We will utilize Xeroform dressings through the . Will consult wound care on Tuesday. The patient will benefit from collagen dressings with silver 10/07/2019 We will change to Adaptic dressing. I will also apply Aquaphor to his skin as this will help with the dryness and fragile nature. I will ask the wound center to evaluate on Tuesday in anticipation of outpatient wound care appointment. 10/08/2019 Have asked the wound care center to come evaluate patient's wound. He might be a candidate for outpatient wound care visits. (4) Chronic obstructive pulmonary disease Qualifiers: COPD type: unspecified COPD Qualified Code(s): J44.9 - Chronic obstructive pulmonary disease, unspecified Is this a current diagnosis for this admission?: Yes Plan: I will initially utilize nebulizer treatments. The patient will try to get back to his baseline 2 L to 3 L nasal cannula. I will likely follow him over to his own inhaler regimen or substitute Trelegy while he is in the hospital. No steroids at this point. 10/06/2019 Tomorrow will order his Trelegy and return scheduled nebulizers to as needed. 10/07/2019 Trelegy restarted today. Decrease scheduled nebulizer treatments to every 12 hours. Attempt to taper oxygen back to the 2-1/2 L that he uses at home 10/08/2019 Stable. Consider changing nebulizers to as needed with daily Trelegy inhaler therapy 10/12/2019-patient has history of COPD on examination chest bilateral entry was decreased no wheezing no crepitations. No wheezing present. Pulse ox is 99% on 1.5 L. 10/13/2019-pulse ox today is 96% on room air. Doing well. (5) Anemia Qualifiers: Anemia type: iron deficiency Iron deficiency anemia type: inadequate dietary iron intake Qualified Code(s): D50.8 - Other iron deficiency anemias Is this a current diagnosis for this admission?: Yes Plan: 10/05/2019 The patient reports that his primary care was working up his anemia. Evidently he was to be referred to hematology. I have ordered anemia work-up in the morning. He will be on a multivitamin and iron supplement as well as vitamin C. 10/06/2019 Laboratory studies confirm iron deficiency anemia. My guess is that his oral intake is poor at home. He has been started on oral iron but I have ordered a dose of iron sucrose. We will continue to monitor hemoglobin. 10/07/2019 Hemoglobin was 9 yesterday. It is 9.2 today. Anemia is improving. He received IV iron yesterday. Today I will increase oral iron supplement to twice a day. 10/08/2019 Spoke to patient's daughter. He has a terrible diet. His favorite food is Milk Duds. She asked about Meals on Wheels. With a better diet his hemoglobin is starting to improve. 10/10/2019-latest hemoglobin is 9.5 stable. 10/12/2019-hemoglobin is 8.9. Asymptomatic. Plan is to check the labs on daily basis. (6) Chronic diastolic heart failure Is this a current diagnosis for this admission?: No Plan: 10/05/2019 Echocardiogram in April 2018 revealed a normal ejection fraction with grade 1/4 diastolic failure. We will scrutinize his IV fluids so as not to create volume overload. 10/06/2019 The brain natruretic peptide went from 2990 down to 2415. He is tolerating gentle fluids. Consider resuming his furosemide tomorrow. 10/07/2019 Stable. I will resume furosemide but at the decreased dose of 20 mg daily. 10/08/2019 Increase furosemide back to 40 mg daily 10/10/19-blood pressure today's 100/60. Asymptomatic. Patient is receiving furosemide 40 mg daily. 10/12/2019-patient is euvolemic on examination. Receiving p.o. furosemide. Blood pressure is 104/60 stable. 10/13/2019 on examination looks euvolemic. Blood pressure today is 103/60. Asymptomatic. Plan is to continue the present management. (7) Chronic neck and back pain Is this a current diagnosis for this admission?: No Plan: 10/05/2019 Continue opiate therapy since this is chronic and I do not want to cause withdrawal. 10/06/2019 Continue pain management 10/07/2019 We will need to scrutinize pain management regimen. Increased pain medications could contribute to instability and falls. (8) Essential hypertension Is this a current diagnosis for this admission?: No Plan: 10/05/2019 The patient is on metoprolol, lisinopril and furosemide. I am holding the furosemide today due to the dehydration. I will likely utilize all 3 medications tomorrow but this will be based on his volume status, pulse and blood pressure. 10/06/2019 Blood pressures have been borderline to low. They seem to be improved today. We will continue to monitor closely and add medications judiciously. 10/07/2019 Blood pressure much better this morning. Continue to monitor with vital signs. 10/08/2019 Blood pressure were elevated. It seems that after the Espitia catheter was placed to relieve the urinary obstruction the patient's numbers improved 10/09/2019-blood pressure today is 112/60. Stable. 10/10/19-blood pressure today is 99/50. Asymptomatic comfortably in the bed communicating well. 10/11/2019-blood pressure today is 122/60. Stable. Plan is to continue the present management. 10/13/2019 patient's blood pressures are persistently on the lower side of the n ormal. Not on antihypertensives at this time. (9) Pulmonary hypertension Is this a current diagnosis for this admission?: No Plan: 10/05/2019 Identified with the echocardiogram in April 2018. Continue current medication regimen. This may be contributing somewhat to his shortness of breath. 10/06/2019 Chronic and stable 10/07/2019 Chronic and stable. No specific intervention other than current medication regimen and treating COPD. (10) Lactic acidemia Is this a current diagnosis for this admission?: No Plan: 10/05/2019 The patient received 2 L of fluid in the emergency department and his lactic acid normalized. 10/06/2019 Resolved 10/07/2019 No further need to monitor lactic acid levels. (11) Hyperbilirubinemia Is this a current diagnosis for this admission?: No Plan: 10/05/2019 Likely due to a constellation of events including the dehydration, rhabdo and kidney injury. His bilirubin in fact was elevated when I admitted the patient in April. While we are monitoring his renal function we will also monitor liver function with serial labs. His prothrombin time is slightly elevated. This could also be a reflection of his nutritional status. We will continue to monitor closely. 10/06/2019 Improving. Bilirubin is down to 1.8 from 2.3. 10/07/2019 Resolved (12) Dehydration Is this a current diagnosis for this admission?: No Plan: 10/05/2019 Judicious use of IV fluids and the patient's baseline medications. Serial laboratory studies are ordered. 10/06/2019 BUN is down to 26 from 32. Continue gentle fluids. I encouraged the patient to drink more water. 10/07/2019 Resolved (13) Leukocytosis Qualifiers: Leukocytosis type: unspecified Qualified Code(s): D72.829 - Elevated white blood cell count, unspecified Is this a current diagnosis for this admission?: Yes Plan: 10/05/2019 This is most likely a physiologic response to the recent events and current pathology. He will be on ceftriaxone for the laceration. There is no suggestion of pneumonia. Blood cultures and urine culture have been ordered. 10/06/2019 White blood cell count is now normal. 10/07/2019 Resolved (14) Positive blood culture Is this a current diagnosis for this admission?: Yes Plan: 10/09/2019-blood cultures were positive for Acinetobacter and a Staphylococcus coagulase-negative. Presently on IV cefepime and vancomycin. Plan is to continue present antibiotic therapy. 10/10/19-blood cultures growing Staphylococcus species probably contamination and Acinetobacter. Patient is receiving IV cefepime and vancomycin, ID consult is requested. 10/11/2019-ID consult was done because blood cultures came back positive for Acinetobacter the recommendation is it can be contaminant but recommendation is 10 days of antibiotic therapy as per ID recommendations IV antibiotics are discontinued started on p.o. levofloxacin 40 mg daily. Patient may build to go to long-term care facility tomorrow. 10/12/2019-blood cultures are positive for Staphylococcus aureus and Acinetobacter possible contaminant. As per ID recommendations patient is on p.o. antibiotic therapy at this time. 10/13/2019-blood cultures came back positive for Acinetobacter most likely contaminant as per ID. As per ID recommendations patient is presently on p.o. antibiotics.
[2019-10-13] MEDS: TAMSULOSIN HCL 0.4 MG CAP.SR.24H PO SCH (17:11)
[2019-10-13] MEDS: ATORVASTATIN CALCIUM 80 MG TABLET PO SCH (21:25)
[2019-10-13] MEDS ORDERED: TEMAZEPAM 7.5 MG CAPSULE PO SCH (22:00)
[2019-10-14] MEDS: HEPARIN SOD (PORCINE) 5,000 UNIT/ML 1 ML VIAL SUBCUT SCH (05:04)
[2019-10-14 08:36] VITALS: BP 154/63
[2019-10-14] MEDS: POTASSIUM CHLORIDE 10 MEQ TABLET.ER PO SCH (10:07)
[2019-10-14] MEDS: ZINC SULFATE 220 MG CAPSULE PO SCH (10:07)
[2019-10-14] MEDS: MAGNESIUM OXIDE 400 MG TABLET PO SCH ×2 (10:07→10:51)
[2019-10-14] MEDS: CIPROFLOXACIN HCL 500 MG TABLET PO SCH (10:07)
[2019-10-14] MEDS: ASCORBIC ACID 500 MG TABLET PO SCH (10:07)
[2019-10-14] MEDS: FAMOTIDINE 20 MG TABLET PO SCH (10:07)
[2019-10-14] MEDS: FERROUS SULFATE 325 MG TABLET PO SCH (10:08)
[2019-10-14] MEDS: LISINOPRIL 5 MG TABLET PO SCH (10:08)
[2019-10-14] MEDS: METOPROLOL SUCCINATE 25 MG TAB.SR.24H PO SCH (10:08)
[2019-10-14] MEDS: FUROSEMIDE 20 MG TABLET PO SCH (10:08)
[2019-10-14] MEDS: ASPIRIN 81 MG TABLET, ENT COATED PO SCH (10:08)
[2019-10-14] MEDS: CLOPIDOGREL BISULFATE 75 MG TABLET PO SCH (10:08)
[2019-10-14] MEDS: FLUTICASONE/UMECLIDIN/VILANTER 100-62.5-25 MCG/DOSE IH SCH (10:09)
[2019-10-14] MEDS: GABAPENTIN 300 MG CAPSULE PO SCH (10:09)
[2019-10-14] MEDS: PANTOT AC/MIN OIL/PET HY-PHL OINT 50 GM TOP SCH (10:09)
[2019-10-14] MEDS: MULTIVITAMIN TABLET PO SCH (10:09)
--- NOTE | 2019-10-14 10:42 | PDOC TRANSFER SUMMARY ---
Impression - Admit/DC Date/PCP Admission Date/Primary Care Provider: 10/05/19 19:18 Discharge Date: 10/14/19 - Discharge Diagnosis (1) Rhabdomyolysis Is this a current diagnosis for this admission?: Yes (2) Acute kidney injury (JUDY) with acute tubular necrosis (ATN) Is this a current diagnosis for this admission?: Yes (3) Laceration of elbow, left, complicated Is this a current diagnosis for this admission?: Yes (4) Chronic obstructive pulmonary disease Is this a current diagnosis for this admission?: Yes (5) Anemia Is this a current diagnosis for this admission?: Yes (6) Chronic diastolic heart failure Is this a current diagnosis for this admission?: No (7) Chronic neck and back pain Is this a current diagnosis for this admission?: No (8) Essential hypertension Is this a current diagnosis for this admission?: No (9) Pulmonary hypertension Is this a current diagnosis for this admission?: No (10) Lactic acidemia Is this a current diagnosis for this admission?: No (11) Hyperbilirubinemia Is this a current diagnosis for this admission?: No (12) Dehydration Is this a current diagnosis for this admission?: No (13) Leukocytosis Is this a current diagnosis for this admission?: Yes (14) Positive blood culture Is this a current diagnosis for this admission?: Yes - Assessment Summary: (1) Rhabdomyolysis Qualifiers: Rhabdomyolysis type: traumatic Encounter type: initial encounter Qualified Code(s): T79.6XXA - Traumatic ischemia of muscle, initial encounter Is this a current diagnosis for this admission?: Yes Plan: 10/05/2019 The patient fell and lay on the floor for many hours. His creatinine kinase is elevated. This along with dehydration are likely the cause of the acute kidney failure with acute tubular necrosis. We will give IV fluids and monitor intake and output. We will check serial labs to monitor renal function. We need to be mindful of his history of heart failure when giving IV fluids. 10/05/2019 Creatinine kinase is down to 659. We will continue very gentle IV fluids. 10/07/2019 Creatinine kinase is down to 247. It should normalize within the next day or 2. Bilirubin is now normal. Rhabdomyolysis is basically resolved. 10/08/2019 Creatinine kinase is 171 but the upper limit of normal at 170. Rhabdo is resolved. 10/14/2019-patient came in with rhabdomyolysis which was resolved. (2) Acute kidney injury (JUDY) with acute tubular necrosis (ATN) Is this a current diagnosis for this admission?: Yes Plan: 10/05/2019 Due to a combination of dehydration and rhabdomyolysis. The patient is also on lisinopril but I believe he missed the dose while he was stuck on the floor. Will give IV fluids being mindful of his history of heart failure. We will monitor renal function closely. I have held his daily Lasix for tonight. 10/06/2019 Serum creatinine is down from 1.53 into the normal range at 1.18. Continue gentle fluids as above and monitor renal function. 10/07/2019 Renal function normal. JUDY resolved. Next 2119-patient came in with JUDY and rhabdomyolysis JUDY is resolved. Latest creatinine is 1.4. (3) Laceration of elbow, left, complicated Is this a current diagnosis for this admission?: Yes Plan: 10/05/2019 The patient's arm will be sutured in the emergency department. He will be on ceftriaxone. The big risk is his extremely fragile skin. If the wound dehiscence then I will clean it and we will laying the skin flap down as best as possible. Approximate the edges as closely as possible. There will certainly be exposed space. We will use Xeroform through the weekend and possibly get collagen dressings with a wound care evaluation. I have added a multivitamin and zinc to help with his healing. 10/06/2019 We will utilize Xeroform dressings through the weekend. Will consult wound care on Tuesday. The patient will benefit from collagen dressings with silver 10/07/2019 We will change to Adaptic dressing. I will also apply Aquaphor to his skin as this will help with the dryness and fragile nature. I will ask the wound center to evaluate on Tuesday in anticipation of outpatient wound care appointment. 10/08/2019 Have asked the wound care center to come evaluate patient's wound. He might be a candidate for outpatient wound care visits. 10/14/2019-patient is receiving bacitracin cream for the lacerations on the hands. (4) Chronic obstructive pulmonary disease Qualifiers: COPD type: unspecified COPD Qualified Code(s): J44.9 - Chronic obstructive pulmonary disease, unspecified Is this a current diagnosis for this admission?: Yes Plan: I will initially utilize nebulizer treatments. The patient will try to get back to his baseline 2 L to 3 L nasal cannula. I will likely follow him over to his own inhaler regimen or substitute Trelegy while he is in the hospital. No steroids at this point. 10/06/2019 Tomorrow will order his Trelegy and return scheduled nebulizers to as needed. 10/07/2019 Trelegy restarted today. Decrease scheduled nebulizer treatments to every 12 hours. Attempt to taper oxygen back to the 2-1/2 L that he uses at home 10/08/2019 Stable. Consider changing nebulizers to as needed with daily Trelegy inhaler therapy 10/12/2019-patient has history of COPD on examination chest bilateral entry was decreased no wheezing no crepitations. No wheezing present. Pulse ox is 99% on 1.5 L. 10/13/2019-pulse ox today is 96% on room air. Doing well. 10/14/2019-pulse ox today is 98% on room air. Doing well. (5) Anemia Qualifiers: Anemia type: iron deficiency Iron deficiency anemia type: inadequate dietary iron intake Qualified Code(s): D50.8 - Other iron deficiency anemias Is this a current diagnosis for this admission?: Yes Plan: 10/05/2019 The patient reports that his primary care was working up his anemia. Evidently he was to be referred to hematology. I have ordered anemia work-up in the morning. He will be on a multivitamin and iron supplement as well as vitamin C. 10/06/2019 Laboratory studies confirm iron deficiency anemia. My guess is that his oral intake is poor at home. He has been started on oral iron but I have ordered a dose of iron sucrose. We will continue to monitor hemoglobin. 10/07/2019 Hemoglobin was 9 yesterday. It is 9.2 today. Anemia is improving. He received IV iron yesterday. Today I will increase oral iron supplement to twice a day. 10/08/2019 Spoke to patient's daughter. He has a terrible diet. His favorite food is Milk Duds. She asked about Meals on Wheels. With a better diet his hemoglobin is starting to improve. 10/10/2019-latest hemoglobin is 9.5 stable. 10/12/2019-hemoglobin is 8.9. Asymptomatic. Plan is to check the labs on daily basis. 10/14/2019-hemoglobin is 10.1 stable. (6) Chronic diastolic heart failure Is this a current diagnosis for this admission?: No Plan: 10/05/2019 Echocardiogram in April 2018 revealed a normal ejection fraction with grade 1/4 diastolic failure. We will scrutinize his IV fluids so as not to create volume overload. 10/06/2019 The brain natruretic peptide went from 2990 down to 2415. He is tolerating gentle fluids. Consider resuming his furosemide tomorrow. 10/07/2019 Stable. I will resume furosemide but at the decreased dose of 20 mg daily. 10/08/2019 Increase furosemide back to 40 mg daily 10/10/19-blood pressure today's 100/60. Asymptomatic. Patient is receiving furosemide 40 mg daily. 10/12/2019-patient is euvolemic on examination. Receiving p.o. furosemide. Blood pressure is 104/60 stable. 10/13/2019 on examination looks euvolemic. Blood pressure today is 103/60. Asymptomatic. Plan is to continue the present management. 10/14/2019-blood pressure today is 140/80 stable. Examination patient looks euvolemic. (7) Chronic neck and back pain Is this a current diagnosis for this admission?: No Plan: 10/05/2019 Continue opiate therapy since this is chronic and I do not want to cause withdrawal. 10/06/2019 Continue pain management 10/07/2019 We will need to scrutinize pain management regimen. Increased pain medications could contribute to instability and falls. 10/14/2019-patient is going to the long-term care facility and he was given a prescription for oxycodone 15 mg every 4 hours for 3 days. (8) Essential hypertension Is this a current diagnosis for this admission?: No Plan: 10/05/2019 The patient is on metoprolol, lisinopril and furosemide. I am holding the furosemide today due to the dehydration. I will likely utilize all 3 medications tomorrow but this will be based on his volume status, pulse and blood pressure. 10/06/2019 Blood pressures have been borderline to low. They seem to be improved today. We will continue to monitor closely and add medications judiciously. 10/07/2019 Blood pressure much better this morning. Continue to monitor with vital signs. 10/08/2019 Blood pressure were elevated. It seems that after the Espitia catheter was placed to relieve the urinary obstruction the patient's numbers improved 10/09/2019-blood pressure today is 112/60. Stable. 10/10/19-blood pressure today is 99/50. Asymptomatic comfortably in the bed communicating well. 10/11/2019-blood pressure today is 122/60. Stable. Plan is to continue the present management. 10/13/2019 patient's blood pressures are persistently on the lower side of the normal. Not on antihypertensives at this time. 10/14/2019-blood pressure today is 140/80 stable. (9) Pulmonary hypertension Is this a current diagnosis for this admission?: No Plan: 10/05/2019 Identified with the echocardiogram in April 2018. Continue current medication regimen. This may be contributing somewhat to his shortness of breath. 10/06/2019 Chronic and stable 10/07/2019 Chronic and stable. No specific intervention other than current medication regimen and treating COPD. (10) Lactic acidemia Is this a current diagnosis for this admission?: No Plan: 10/05/2019 The patient received 2 L of fluid in the emergency department and his lactic acid normalized. 10/06/2019 Resolved 10/07/2019 No further need to monitor lactic acid levels. (11) Hyperbilirubinemia Is this a current diagnosis for this admission?: No Plan: 10/05/2019 Likely due to a constellation of events including the dehydration, rhabdo and kidney injury. His bilirubin in fact was elevated when I admitted the patient in April. While we are monitoring his renal function we will also monitor liver function with serial labs. His prothrombin time is slightly elevated. This could also be a reflection of his nutritional status. We will continue to monitor closely. 10/06/2019 Improving. Bilirubin is down to 1.8 from 2.3. 10/07/2019 Resolved (12) Dehydration Is this a current diagnosis for this admission?: No Plan: 10/05/2019 Judicious use of IV fluids and the patient's baseline medications. Serial laboratory studies are ordered. 10/06/2019 BUN is down to 26 from 32. Continue gentle fluids. I encouraged the patient to drink more water. 10/07/2019 Resolved (13) Leukocytosis Qualifiers: Leukocytosis type: unspecified Qualified Code(s): D72.829 - Elevated white blood cell count, unspecified Is this a current diagnosis for this admission?: Yes Plan: 10/05/2019 This is most likely a physiologic response to the recent events and current pathology. He will be on ceftriaxone for the laceration. There is no suggestion of pneumonia. Blood cultures and urine culture have been ordered. 10/06/2019 White blood cell count is now normal. 10/07/2019 Resolved 10/14/2019-WBC count is 7200 today within normal limits. (14) Positive blood culture Is this a current diagnosis for this admission?: Yes Plan: 10/09/2019-blood cultures were positive for Acinetobacter and a Staphylococcus coagulase-negative. Presently on IV cefepime and vancomycin. Plan is to continue present antibiotic therapy. 10/10/19-blood cultures growing Staphylococcus species probably contamination and Acinetobacter. Patient is receiving IV cefepime and vancomycin, ID consult is requested. 10/11/2019-ID consult was done because blood cultures came back positive for Acinetobacter the recommendation is it can be contaminant but recommendation is 10 days of antibiotic therapy as per ID recommendations IV antibiotics are discontinued started on p.o. levofloxacin 40 mg daily. Patient may build to go to long-term care facility tomorrow. 10/12/2019-blood cultures are positive for Staphylococcus aureus and Acinetobacter possible contaminant. As per ID recommendations patient is on p.o. antibiotic therapy at this time. 10/13/2019-blood cultures came back positive for Acinetobacter most likely contaminant as per ID. As per ID recommendations patient is presently on p.o. antibiotics. 10/14/2019-cultures came back positive for Acinetobacter, ID consult was done the impression is most likely contaminant. As per ID recommendations patient received p.o. antibiotic therapy and given a prescription for Cipro 5 mg p.o. twice daily for 5 days. - Additional Information Resuscitation Status: Do Not Resuscitate Discharge Diet: Cardiac Discharge Activity: Activity As Tolerated Referrals: [facility] [Outside] Prescriptions: Bacitracin Zinc [Bacitracin Oint 15 gm] 1 applic TP ASDIR PRN #2 tube PRN Reason: Ciprofloxacin HCl [Cipro 500 mg Tablet] 500 mg PO Q12 5 Days #10 tablet Tamsulosin HCl [Flomax 0.4 mg Cap.sr] 0.4 mg PO PCSUPPER 30 Days #30 cap.sr.24h Oxycodone HCl [Oxy-Ir 5 mg Tablet] 10 mg PO Q4HP PRN #10 tablet PRN Reason: Multivitamin [Tab-A-Dann (Multiple Vitamin) Tablet] 1 tab PO DAILY #30 tablet Zinc Sulfate [Zinc-220 Capsule] 220 mg PO QAM 30 Days #30 capsule Home Medications: Gabapentin [Neurontin 300 mg Capsule] 300 mg PO DAILY 06/25/13 Albuterol Sulfate [Proair HFA Inhalation Aerosol 8.5 gm MDI] 2 puff IH Q6HP PRN 05/17/18 Atorvastatin Calcium [Lipitor 80 mg Tablet] 80 mg PO QHS 05/17/18 Clopidogrel Bisulfate [Plavix 75 mg Tablet] 75 mg PO DAILY 05/17/18 Gabapentin [Neurontin 300 mg Capsule] 900 mg PO QHS 05/17/18 Lisinopril [Prinivil 10 mg Tablet] 10 mg PO DAILY 05/17/18 Metoprolol Succinate [Toprol Xl 25 mg Tab.sr] 25 mg PO DAILY 05/17/18 Potassium Chloride [Klor-Con 10 Meq Tablet ER] 20 meq PO DAILY 05/17/18 Zolpidem Tartrate [Ambien 5 mg Tablet] 10 mg PO HSP PRN 05/17/18 Nitroglycerin 0.3 mg SL Q15MP PRN 30 Days #30 tab.subl 05/18/18 Albuterol Sulfate [Ventolin 0.083% Neb 2.5 mg/3 mL Ampul] 2.5 mg NEB Q6 10/05/19 Buprenorphine [Butrans] 5 mcg TD TEJADA@1000 10/05/19 Cyclobenzaprine HCl [Flexeril 10 mg Tablet] 10 mg PO TIDP PRN 10/05/19 Famotidine [Pepcid 20 mg Tablet] 20 mg PO DAILY 10/05/19 Fluticasone/Umeclidin/Vilanter [Trelegy 100-62.5-25 Mcg Ellipta 14 Dose/Dpi] 1 puff IH DAILY 10/05/19 Furosemide [Lasix 40 mg Tablet] 40 mg PO DAILY 10/05/19 Bacitracin Zinc [Bacitracin Oint 15 gm] 1 applic TP ASDIR PRN #2 tube 10/12/19 Ciprofloxacin HCl [Cipro 500 mg Tablet] 500 mg PO Q12 5 Days #10 tablet 10/12/19 Multivitamin [Tab-A-Dann (Multiple Vitamin) Tablet] 1 tab PO DAILY #30 tablet 0 10/12/19 Oxycodone HCl [Oxy-Ir 5 mg Tablet] 10 mg PO Q4HP PRN #10 tablet 10/12/19 Tamsulosin HCl [Flomax 0.4 mg Cap.sr] 0.4 mg PO PCSUPPER 30 Days #30 cap.sr.24h 10/12/19 Zinc Sulfate [Zinc-220 Capsule] 220 mg PO QAM 30 Days #30 capsule 10/12/19 History of Present Illiness History of Present Illness: RIC KUNZ is a 69 year old male 69 year old male to this provider. He has a history of congestive heart failure, coronary artery disease, myocardial infarction and hypertension. He also has chronic obstructive pulmonary disease on home oxygen and respiratory failure. In addition he bruises easily and is anemic. There is a distant history of seizures. The patient reports that he has been feeling weak since May. He has not had alcohol or tobacco since 2012. His home oxygen is usually 2 to 3 L. With his weakness he finally fell. He sustained a large deep skin tear/laceration on the left elbow. In addition he cannot mobilize and was stuck on the floor for a day. He was able to eventually reach the phone and call for help. During that time he had minimal intake. It is also likely that he missed some doses of medication. Currently he looks exhausted. He is pale. He has the skin tear/laceration on the left arm the leading edge of the skin is beginning to curl and retract. Laboratory studies revealed an acute kidney in jury as well as liver dysfunction, and elevated creatinine kinase consistent with rhabdomyolysis and his anemia. He will be admitted to the hospital service. He needs fluids but we need to be mindful of his history of congestive heart failure. Although his liver dysfunction and serum creatinine qualify for sepsis I do not believe that this patient is septic. The emergency department physician is going to suture his left arm and he will be on ceftriaxone. Hospital Course Hospital Course: 69 year old male to this provider. He has a history of congestive heart failure, coronary artery disease, myocardial infarction and hypertension. He also has chronic obstructive pulmonary disease on home oxygen and respiratory failure. In addition he bruises easily and is anemic. There is a distant history of seizures. The patient reports that he has been feeling weak since May. He has not had alcohol or tobacco since 2012. His home oxygen is usu ally 2 to 3 L. With his weakness he finally fell. He sustained a large deep skin tear/laceration on the left elbow. In addition he cannot mobilize and was stuck on the floor for a day. He was able to eventually reach the phone and call for help. During that time he had minimal intake. It is also likely that he missed some doses of medication. Currently he looks exhausted. He is pale. He has the skin tear/laceration on the left arm the leading edge of the skin is beginning to curl and retract. Laboratory studies revealed an acute kidney injury as well as liver dysfunction, and elevated creatinine kinase consistent with rhabdomyolysis and his anemia. He will be admitted to the hospital service. He needs fluids but we need to be mindful of his history of congestive heart failure. Although his liver dysfunction and serum creatinine qualify for sepsis I do not believe that this patient is septic. The emergency department physician is going to suture his left arm and he will be on ceftriaxone. 10/09/2019-comfortably in the bed communicating well. Waiting for physical therapy and Occupational Therapy evaluation. He has wounds on the arms getting Xeroform dressings. Cultures are positive for Acinetobacter pansensitive. Presently on IV cefepime and vancomycin. Plan is to continue the antibiotic therapy at this time. His [employer] contact isolation. 10/10/2019- 69-year-old male admitted with acute acute kidney injury which was resolved rhabdomyolysis which was resolved blood cultures are positive for Staphylococcus coagulase-negative and Acinetobacter. Patient is presently on IV cefepime and vancomycin consultation with ID is requested. Needed will arrange for a DANIA. Patient is afebrile WBC count is 7400. Plan is to discharge him to SNF physical therapy is working with the patient. 10/11/2019-patient admitted with acute kidney injury resolved. Rhabdomyolysis resolved. Blood cultures came back positive so for Acinetobacter ID consult was requested. The impression may be contamination. The plan is to switch IV antibiotics to p.o. antibiotics as per ID recommendations. Patient may be able to go to long-term care facility tomorrow. No acute events in the last 24 hours. 10/12/2019-no acute events in the last 24 hours. Patient stable to go to the halfway today but COVID testing results are pending. 10/13/2019-no acute events the last 24 hours. Afebrile. COVID test is negative. Waiting for placement. 10/14/2019-patient is afebrile vital signs are stable, cover test came back negative and patient is going to [facility] facility today. Physical Exam Vital Signs: Temp Pulse Resp BP Pulse Ox 97.1 F 87 15 154/63 H 97 10/14/19 07:38 10/14/19 07:38 10/14/19 07:38 10/14/19 07:38 10/14/19 07:38 Intake & Output 10/13/19 10/14/19 10/15/19 06:59 06:59 06:59 Intake Total 100 930 Output Total 0 500 Balance 100 430 Weight 82.7 kg 83.2 kg General appearance: PRESENT: no acute distress, well-developed Head exam: PRESENT: atraumatic Eye exam: PRESENT: PERRLA Ear exam: PRESENT: normal external ear exam Mouth exam: PRESENT: neck supple Teeth exam: PRESENT: poor dentation Neck exam: ABSENT: carotid bruit, JVD, lymphadenopathy, thyromegaly Respiratory exam: PRESENT: decreased breath sounds Cardiovascular exam: PRESENT: RRR. ABSENT: diastolic murmur, rubs, systolic murmur GI/Abdominal exam: PRESENT: normal bowel sounds, soft. ABSENT: distended, guarding, mass, organolmegaly, rebound, tenderness Rectal exam: PRESENT: deferred Extremities exam: PRESENT: full ROM. ABSENT: calf tenderness, clubbing, pedal edema Neurological exam: PRESENT: alert, awake, oriented to person, oriented to place, oriented to time, oriented to situation, CN II-XII grossly intact. ABSENT: motor sensory deficit Psychiatric exam: PRESENT: appropriate affect, normal mood. ABSENT: homicidal ideation, suicidal ideation Results Laboratory Results: WBC 6.4 10^3/uL (4.0-10.5) 10/12/19 04:35 RBC 3.74 10^6/uL (4.35-5.55) L 10/12/19 04:35 Hgb 8.9 g/dL (13.5-17.0) L 10/12/19 04:35 Hct 27.6 % (37.9-51.0) L 10/12/19 04:35 MCV 74 fl (80-97) L 10/12/19 04:35 MCH 23.9 pg (27.0-33.4) L 10/12/19 04:35 MCHC 32.4 g/dL (32.0-36.0) 10/12/19 04:35 RDW 17.8 % (11.5-14.0) H 10/12/19 04:35 Plt Count 278 10^3/uL (150-450) 10/12/19 04:35 Lymph % (Auto) Not Reportable 10/12/19 04:35 [place] % (Auto) Not Reportable 10/12/19 04:35 Eos % (Auto) Not Reportable 10/12/19 04:35 Baso % (Auto) Not Reportable 10/12/19 04:35 Reticulocyte # 0.096 10^6/uL (0.028-0.122) 10/06/19 05:49 Absolute Neuts (auto) Not Reportable 10/12/19 04:35 Absolute Lymphs (auto) Not Reportable 10/12/19 04:35 Absolute Monos (auto) Not Reportable 10/12/19 04:35 Absolute Eos (auto) Not Reportable 10/12/19 04:35 Absolute Basos (auto) Not Reportable 10/12/19 04:35 Total Counted 100 10/12/19 04:35 Seg Neutrophils % Not Reportable 10/12/19 04:35 Seg Neuts % (Manual) 79 % (42-78) H 10/12/19 04:35 Band Neutrophils % 1 % (3-5) L 10/12/19 04:35 Lymphocytes % (Manual) 14 % (13-45) 10/12/19 04:35 Atypical Lymphs % 1 % (0) 10/10/19 05:09 Monocytes % (Manual) 3 % (3-13) 10/12/19 04:35 Eosinophils % (Manual) 3 % (0-6) 10/12/19 04:35 Basophils % (Manual) 0 % (0-2) 10/12/19 04:35 Abs Neuts (Manual) 5.1 10^3/uL (1.7-8.2) 10/12/19 04:35 Abs Lymphs (Manual) 0.9 10^3/uL (0.5-4.7) 10/12/19 04:35 Abs Monocytes (Manual) 0.2 10^3/uL (0.1-1.4) 10/12/19 04:35 Absolute Eos (Manual) 0.2 10^3/uL (0.0-0.6) 10/12/19 04:35 Abs Basophils (Manual) 0.0 10^3/uL (0.0-0.2) 10/12/19 04:35 Toxic Granulation SLIGHT 10/12/19 04:35 Platelet Comment ADEQUATE 10/12/19 04:35 Hypochromasia SLIGHT 10/10/19 05:09 Poikilocytosis 1+ 10/12/19 04:35 Anisocytosis 1+ 10/12/19 04:35 Microcytosis 1+ 10/12/19 04:35 Tear Drop Cells SLIGHT 10/12/19 04:35 Ovalocytes 1+ 10/12/19 04:35 [place] Cells 1+ 10/12/19 04:35 Schistocytes SLIGHT 10/12/19 04:35 Retic Count (auto) 2.52 % (0.66-2.85) 10/06/19 05:49 PT 19.7 SEC (11.4-15.4) H 10/05/19 15:22 INR 1.65 10/05/19 15:22 APTT 35.4 SEC (23.5-35.8) 10/05/19 15:22 Sodium 138.0 mmol/L (137-145) 10/12/19 04:35 Potassium 4.5 mmol/L (3.6-5.0) 10/12/19 04:35 Chloride 103 mmol/L (98-107) 10/12/19 04:35 Carbon Dioxide 32 mmol/L (22-30) H 10/12/19 04:35 Anion Gap 3 (5-19) L 10/12/19 04:35 BUN 16 mg/dL (7-20) 10/12/19 04:35 Creatinine 1.13 mg/dL (0.52-1.25) 10/12/19 04:35 Est GFR ( Amer) > 60 (>60) 10/12/19 04:35 Est GFR (MDRD) Non-Af > 60 (>60) 10/12/19 04:35 Glucose 120 mg/dL (75-110) H 10/12/19 04:35 Lactic Acid 1.8 mmol/L (0.7-2.1) 10/05/19 17:48 Calcium 8.9 mg/dL (8.4-10.2) 10/12/19 04:35 Magnesium 2.6 mg/dL (1.6-2.3) H 10/12/19 04:35 Iron 22.8 ug/dL (49-181) L 10/06/19 05:49 TIBC 208 ug/dL (250-450) L 10/06/19 05:49 % Saturation 11 % 10/06/19 05:49 Transferrin 134.80 mg/dL (206.00-381.00) L 10/06/19 05:49 Ferritin 178.00 ng/mL (17.9-464.0) 10/06/19 05:49 Total Bilirubin 0.6 mg/dL (0.2-1.3) 10/12/19 04:35 Direct Bilirubin 0.0 mg/dL (0.0-0.4) 10/12/19 04:35 Neonat Total Bilirubin Not Reportable 10/12/19 04:35 Neonat Direct Bilirubin Not Reportable 10/12/19 04:35 Neonat Indirect Bili Not Reportable 10/12/19 04:35 AST 38 U/L (17-59) 10/12/19 04:35 ALT 19 U/L (<50) 10/12/19 04:35 Alkaline Phosphatase 68 U/L (38-126) 10/12/19 04:35 Creatine Kinase 171 U/L (55-170) H 10/08/19 05:03 CK-MB (CK-2) 14.00 ng/mL (<4.55) H 10/05/19 15:22 Troponin I 0.100 ng/mL 10/05/19 17:48 NT-Pro-B Natriuret Pep 2450 pg/mL (<125) H 10/06/19 05:49 Total Protein 4.7 g/dL (6.3-8.2) L 10/12/19 04:35 Albumin 2.4 g/dL (3.5-5.0) L 10/12/19 04:35 Vitamin B12 > 1000.0 pg/mL (239-931) H 10/06/19 05:49 Folate 5.60 ng/mL (>2.76) 10/06/19 05:49 Urine Color [place] 10/07/19 13:41 Urine Appearance CLEAR 10/07/19 13:41 Urine pH 5.0 (5.0-9.0) 10/07/19 13:41 Ur Specific Soldier 1.016 10/07/19 13:41 Urine Protein NEGATIVE mg/dL (NEGATIVE) 10/07/19 13:41 Urine Glucose (UA) NEGATIVE mg/dL (NEGATIVE) 10/07/19 13:41 Urine Ketones NEGATIVE mg/dL (NEGATIVE) 10/07/19 13:41 Urine Blood NEGATIVE (NEGATIVE) 10/07/19 13:41 Urine Nitrite (Reflex) NEGATIVE (NEGATIVE) 10/07/19 13:41 Urine Bilirubin NEGATIVE (NEGATIVE) 10/07/19 13:41 Urine Urobilinogen 4.0 mg/dL (<2.0) H 10/07/19 13:41 Leukocyte Esterase Rfl NEGATIVE (NEGATIVE) 10/07/19 13:41 Urine RBC (Auto) 1 /HPF 10/07/19 13:41 U Hyaline Cast (Auto) 4 /LPF 10/05/19 22:00 Urine WBC (Reflex) 1 /HPF 10/07/19 13:41 Squamous Epi Cells Auto <1 /HPF 10/05/19 22:00 Urine Mucus (Auto) RARE /LPF 10/07/19 13:41 Urine Ascorbic Acid NEGATIVE (NEGATIVE) 10/07/19 13:41 Time Trough Drawn 0545 10/09/19 05:45 Vancomycin Trough 18.9 ug/mL (5.0-20.0) 10/09/19 05:45 COVID-19 Source NASOPHARYNGEAL 10/10/19 13:00 COVID-19 (FABIANA) NOT DETECTED 10/10/19 13:00 10/05/19 10/05/19 10/06/19 15:22 17:48 05:49 CK-MB (CK-2) 14.00 H Troponin I 0.100 0.100 NT-Pro-B Natriuret Pep 2990 H 2450 H Impressions: Chest X-Ray 10/05/19 14:26 IMPRESSION: Cannot exclude a limited pneumonia in either lower lobe. Head CT 10/05/19 14:26 IMPRESSION: Mild involutional changes. Intracranial atherosclerosis. No acute intracranial imaging findings. EVIDENCE OF ACUTE STROKE: NO. Cervical Spine CT 10/05/19 14:28 IMPRESSION: Cervical kyphosis. Extensive degenerative disc disease and spondylosis. Multiple laminectomies. No acute finding. Elbow X-Ray 10/05/19 20:54 IMPRESSION: No fracture. Chest X-Ray 10/07/19 00:00 IMPRESSION: Similar right basilar scarring -subsegmental atelectasis. No acute consolidation or pleural effusion. Plan Plan of Treatment: Patient is going to long-term care facility with ciprofloxacin 500 mg p.o. twice daily for 5 days cultures in the hospital came back Acinetobacter ID consult was done the impression is most likely is a contaminant. Time Spent: Greater than 30 Minutes Stroke Is this a Stroke Patient?: No Acute Heart Failure - Is this a Heart Failure Patient?: No
[2019-10-14] MEDS: OXYCODONE HCL IR 5 MG TABLET PO PRN (10:50)
== END 2019-10-14 12:00 | DRG 564 ==
LOC: ER 13:25 → EH 19:18 → 4N 23:10
PROVIDERS: ADMIT Hospitalist; ATTEND Internal Medicine
PROC: 0HQEXZZ Repair Left Lower Arm Skin, External Approach (ICD-10-PCS; principal; 2019-10-05)
DX: T79.6XXA Traumatic ischemia of muscle, initial encounter (principal); N17.0 Acute kidney failure with tubular necrosis; I50.32 Chronic diastolic (congestive) heart failure; E87.2 Acidosis; S51.012A Laceration without foreign body of left elbow, initial encounter; E86.0 Dehydration; I25.10 Atherosclerotic heart disease of native coronary artery without angina pectoris; I11.0 Hypertensive heart disease with heart failure; J44.9 Chronic obstructive pulmonary disease, unspecified; R33.9 Retention of urine, unspecified; E80.6 Other disorders of bilirubin metabolism; D50.8 Other iron deficiency anemias; I27.20 Pulmonary hypertension, unspecified; G89.29 Other chronic pain; M54.2 Cervicalgia; M54.9 Dorsalgia, unspecified; I25.2 Old myocardial infarction; W18.39XA Other fall on same level, initial encounter; Y93.89 Activity, other specified; Y92.018 Other place in single-family (private) house as the place of occurrence of the external cause; Z60.2 Problems related to living alone; Z03.818 Encounter for observation for suspected exposure to other biological agents ruled out; Z79.82 Long term (current) use of aspirin; Z79.51 Long term (current) use of inhaled steroids; Z79.899 Other long term (current) drug therapy; Z99.81 Dependence on supplemental oxygen
CPT/HCPCS: 36415; 70450; 71045; 72125; 80053; 80202; 81001; 82550; 82553; 82607; 82728; 82746; 83540; 83550; 83605; 83735; 83880; 84466; 84484; 85025; 85045; 85610; 85730; 87040; 87077; 87150; 87186; 87635; 93005; 93010; 94640; 99285; C9803; J0692; J0696; J1200; J1644; J1756; J3370; J3490; J7030; J7060; J7620